=== PATIENT | female | born 1945 | race Caucasian/White ===

== ENCOUNTER 2020-10-20 10:37 | Outpatient (CLI) | payer MEDICARE, SELFPAY ==
--- NOTE | 2020-10-20 11:00 | USCV_ITS ---
Natalie Marks Age: 75 Gender: F : 1945 Exam Date: 10/20/2020 11:26 Ordering Phys: Mariel Hdz MD ([email or web address]) Technologist: David Vasquez [place] [facility] [facility] [place]: CAROTID STENOSIS Risk Factors: Previous Vascular Surgery: Right Brachial BP: / Left Brachial BP: / Right Left Velocity (cm/s) Spectral Plaque Velocity (cm/s) Spectral Plaque Syst/Diast Broadening Syst/Diast Broadening 65.10/ 19.80 Prox CCA 194.30/ 9.00 55.90/ 22.50 Mid CCA 372.20/ 26.60 51.30/ 24.90 Distal CCA 192.50/ 25.20 137.80/59.50 Prox ICA 164.90/ 21.00 89.30/ 37.50 Mid ICA 146.70/ 29.30 59.50/ 24.30 Distal ICA 103.00/ 21.70 42.70 ECA 104.20 2.46 ICA/CCA 0.44 Antegrade Vertebral Antegrade 101.4/ 18.70 cm/s 122.6/ 34.20 cm/s 0 0 Bi Subclavian Bi 89.30 135.2 0 CONCLUSIONS Right ICA stenosis 50-69%. Moderate atheromatous plaque right carotid bulb/ICA. Left ICA stenosis 50-69%. Moderate atheromatous plaque left carotid bulb/ICA. Significant elevated velocities left MID CCA at 372cm/s suggesting greater than 70% stenosis, with intimal thickening and heterogenous plaque. This could be further evaluated with CTA. This is new from 2017 Normal antegrade Doppler flow noted in the left vertebral artery. Normal antegrade Doppler flow noted in the right vertebral artery. Sigifredo Yuen MD (Electronically Signed) Final Date: 20 October 2020 17:52 Amended: 21 October 2020 17:15 C
== END 2020-10-20 10:38 | disposition home or self-care (01) ==
PROVIDERS: PCP Nurse Practitioner Family; Visit Provider Internal Medicine Cardiovascular Disease
DX: I65.23 Occlusion and stenosis of bilateral carotid arteries (principal)
CPT/HCPCS: 93880

== ENCOUNTER → 2020-12-09 14:10 | Outpatient (BNVA) | payer MEDICARE, SELFPAY | PROVIDERS: PCP Nurse Practitioner Family; Visit Provider Nurse Practitioner Family | DX: Z20.822 Contact with and (suspected) exposure to COVID-19 (principal) | CPT/HCPCS: 87426 ==

== ENCOUNTER 2020-12-11 09:56 | Outpatient (CLI) | payer MEDICARE, SELFPAY ==
[2020-12-11 10:30] LABS: Blood Urea Nitrogen 16 mg/dL (8-23)
--- NOTE | 2020-12-11 10:30 | CT_ITS ---
WS: [id number] CT ANGIOGRAM CAROTID ARTERIES HISTORY: I65.23 - Occlusion and stenosis of bilateral carotid arteries.... TECHNIQUE: CT angiogram is performed of the carotid arteries. During arterial injection imaging is ob tained from the skull base to the aortic arch in 1.25 mm imaging. Coronal and sagittal reformats are submitted, MIP imaging also reviewed. Additional multiplanar reformats of the carotid arteries are garzon bmitted. NASCET criteria utilized. All CT scans at [facility] use at least one of these d ose optimization techniques: automated exposure control; mA and/or kV adjustment per patient size (in cludes targeted exams where dose is matched to clinical indication); or iterative reconstruction. CONTRAST: Omnipaque 350; 95 mL IV. DLP: 1081.16 mGycm COMPARISON: 02/01/2019 Right carotid: Common carotid artery: Normally arises from the innominate. Mild scattered plaque. Internal carotid artery: Scattered plaque. Ulcerated plaque measuring 3 mm at the bifurcation extends posteriorly from the proximal ICA. No interval change. Proximal RIGHT ICA stenosis calculated at 43% . External carotid artery: Patent. Left carotid: Common carotid artery: Plaque at the origin from the aorta. No high-grade stenosis. Ulcerated plaque measuring 5 mm is again noted in the mid LEFT common carotid artery which has been previously describ ed. Stenosis in the proximal common carotid artery 50% near the ulcerated plaque. Internal carotid artery: Scattered plaque at the bifurcation. 49% stenosis calculated. External carotid artery: Patent. Right vertebral artery: Scattered plaque throughout with no stenosis or occlusion. Left vertebral artery: Dominant and tortuous with calcified plaque scattered throughout. No high-grad e stenosis. Subclavian arteries: Mild plaque and tortuosity with no stenosis identified. The origin of the LEFT s ubclavian artery is obscured by contrast bolus. Upper thorax: Normal. Thyroid gland: Small caliber. Poorly visualized. Osseous structures: Mild degenerative changes at C5-6 and C6-7 the spine. Skull base: No skull base abnormality identified. There is moderate calcified plaque through the visualized intracranial carotid arteries and cavernous sinuses. Stenosis 50-60% on the LEFT. Similar to the prior study. CT/CT angio neck 27668 IMPRESSION: 1. No significant progression of carotid artery stenosis since 02/01/2019. 2. Proximal RIGHT ICA stenosis 43%. 3. Proximal LEFT ICA stenosis 49%. 4. Proximal LEFT common carotid artery stenosis near 50% with associated ulcer ated plaque. The ulcerated plaque in the common carotid artery has progressed i n size. There is an additional smaller ulcerated plaque at the RIGHT ICA bifurc ation. 5. 50% stenosis LEFT carotid artery the cavernous sinus. No change.
== END 2020-12-11 09:57 | disposition home or self-care (01) ==
PROVIDERS: PCP Nurse Practitioner Family; Visit Provider Internal Medicine Cardiovascular Disease
DX: I65.23 Occlusion and stenosis of bilateral carotid arteries (principal)
CPT/HCPCS: 70498; 82565; 84520; Q9967

== ENCOUNTER 2021-07-30 14:54 | Outpatient (CLI) | payer MEDICARE, MEDICAID, SELFPAY ==
[2021-07-30 16:11] LABS: Anion Gap 20.4 (5-19); Blood Urea Nitrogen 24 mg/dL (8-23); Calcium 8.5 mg/dL (8.5-10.5); Carbon Dioxide 22 mmol/L (22-29); Chloride 101 mmol/L (98-107); Glucose 203 mg/dL (65-115); Osmolality Calculated 298 mOsm/kg (285-295); Potassium 4.4 mmol/L (3.5-5.1); Sodium 139 mmol/L (136-145)
== END 2021-07-30 14:55 | disposition home or self-care (01) ==
PROVIDERS: PCP Nurse Practitioner Family; Visit Provider Family Medicine
DX: E61.2 Magnesium deficiency (principal)
CPT/HCPCS: 80048

== ENCOUNTER 2021-07-31 09:52 | Outpatient (CLI) | payer MEDICARE, MEDICAID, SELFPAY ==
[2021-07-31 11:04] LABS: Magnesium 0.9 mg/dL (1.7-2.3)
== END 2021-07-31 09:53 | disposition home or self-care (01) ==
PROVIDERS: PCP Nurse Practitioner Family; Visit Provider Family Medicine
DX: E61.2 Magnesium deficiency (principal)
CPT/HCPCS: 83735

== ENCOUNTER 2024-03-14 14:59 | Outpatient (CLI) | payer MEDICARE, MEDICAID, SELFPAY ==
--- NOTE | 2024-03-14 15:08 | USCV_ITS ---
Natalie Marks Age: 78 Gender: F : 1945 Exam Date: 03/14/2024 15:25 Ordering Phys: Regan Lu MD Technologist: BRIANNA Exam Location: [facility] [place] Indication: Stenosis. Vision issues. bleeding post eye Risk Factors: Previous Vascular Surgery: Right Brachial BP: / Left Brachial BP: / Right Left Velocity (cm/s) Spectral Plaque Velocity (cm/s) Spectral Plaque Syst/Diast Broadening Syst/Diast Broadening 32.20/ 26.80 Prox CCA 145.60/ 20.10 33.70/ 23.80 Mid CCA 188.40/ 22.00 34.70/ 22.00 Distal CCA 294.10/ 25.30 29.20/ 15.70 Prox ICA 164.80/ 23.70 48.70/ 23.20 Mid ICA 130.30/ 24.10 27.50/ 15.60 Distal ICA 96.30 / 20.00 22.20 ECA 155.10 1.40 ICA/CCA 0.60 Retrograde Vertebral Antegrade 42.70/ 7.20 cm/s 89.00/ 26.00 cm/s Bi Subclavian Bi 21.40 142.5 0 FINDINGS Comparison:. 10/20/20, CTA 12/11/20 Progression of abnormal waveforms and extensive plaque bilaterally and diffusely. Parvus tardus wavefrom right carotid artery. Marked stenosis left CCA. Retrograde right vertebral artery. CONCLUSIONS Significant progression of stenosis, plaque and abnormal waveforms in each carotid artery. New since 12/11/20 Proximal right high grade stenosis likely at the arch or proximal right CCA. Retrograde vertebral artery also suggesting high grade stenosis or occlusion centrally. Left ICA stenosis 50-69%. Recommend CTA carotid arteries. Dr. Dee Matias DO (Electronically Signed) Final Date: 15 March 2024 08:19 S
== END 2024-03-14 15:00 | disposition home or self-care (01) ==
LOC: RAD 14:59
PROVIDERS: PCP Nurse Practitioner Family; Visit Provider Student in an Organized Health Care Education/Training Program
DX: I65.23 Occlusion and stenosis of bilateral carotid arteries (principal); H35.053 Retinal neovascularization, unspecified, bilateral
CPT/HCPCS: 93880

== ENCOUNTER 2024-04-17 08:48 | Outpatient (CLI) | payer MEDICARE, MEDICAID, SELFPAY ==
--- NOTE | 2024-04-17 08:49 | CT_ITS ---
WS: [id number] CTA HEAD AND NECK TECHNIQUE: Contrast enhanced CTA of the head and neck with coronal and sagittal reformatted images an d maximum intensity projection (MIP) images. NASCET criteria utilized. CLINICAL INFORMATION: OCCLUSION STENOSIS OF BILATERAL CAROTID ARTERIES COMPARISON: CTA 12/11/2020 DLP: 1187.[address] scans at [facility] use at least one of these dose optimization techniques: automated e xposure control; mA and/or kV adjustment per patient size (includes targeted exams where dose is matc hed to clinical indication); or iterative reconstruction. FINDINGS: Moderate to advanced small vessel changes. Moderate parenchymal volume loss. Mastoid air ce lls are well aerated. Paranasal sinuses are well aerated. LEFT sphenoid sinusitis. RIGHT: RIGHT common carotid artery is patent.. Approximately 50% stenosis RIGHT common carotid artery origin similar to previous. Calcified atheromatous plaque RIGHT carotid bulb extending into the ICA. Less than 50% RIGHT ICA stenosis. LEFT: Severe stenosis LEFT common carotid artery origin appears progressed. Less than 50% LEFT ICA st enosis. LEFT ICA is patent to the skull base. INTRACRANIAL CTA: Both ICAs are patent at the skull base. Cavernous carotid calcification. 3 mm anterior communicating artery aneurysm. Normal vascularity to the KORY and MCA territories bilaterally. LEFT dominant vertebral artery. Smaller patent RIGHT vertebral artery. Basilar artery is patent. Norm al vascularity to the DICE TABLE PERSON territory bilaterally. Densely calcified aortic arch with atheromatous disease. CT/CT angio headneck* [id number] IMPRESSION: 1. Less than 50% ICA stenosis bilaterally unchanged. Carotid bulb calcificatio n. 2. Approximately 50% stenosis of the RIGHT common carotid artery origin appear s similar to previous. 3. Severe stenosis innominate origin with dense calcification appears progress ed. 4. Moderate stenosis LEFT subclavian artery origin. 5. Severe stenosis LEFT common carotid artery origin appears progressed. 6. 3 mm anterior communicating artery aneurysm. This appears new since 2017.
[2024-04-17 09:24] LABS: Blood Urea Nitrogen 24 mg/dL (8-23)
[2024-04-17] MEDS: iohexol 350 mg/mL 500 mL Btl (per mL) IV (09:30)
== END 2024-04-17 08:49 | disposition home or self-care (01) ==
LOC: RAD 08:48
PROVIDERS: Radiology Diagnostic Radiology; PCP Nurse Practitioner Family; Visit Provider Nurse Practitioner Family
DX: I65.23 Occlusion and stenosis of bilateral carotid arteries (principal); I60.2 Nontraumatic subarachnoid hemorrhage from anterior communicating artery; I77.1 Stricture of artery; I70.0 Atherosclerosis of aorta; G31.89 Other specified degenerative diseases of nervous system; J01.30 Acute sphenoidal sinusitis, unspecified
CPT/HCPCS: 70496; 70498; 82565; 84520

== ENCOUNTER 2024-08-10 14:00 | Inpatient (IN) | payer MEDICARE, MEDICAID, SELFPAY ==
--- NOTE | 2024-08-10 14:02 | ECG_ITS ---
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 Measurements Intervals [place] Rate: 86 P: 0 ME: 0 QRS: 70 QRSD: 145 T: 138 QT: 364 QTc: 438 Interpretive Statements UNCERTAIN REGULAR RHYTHM INDETERMINATE AXIS RIGHT BUNDLE BRANCH BLOCK [120+ ms QRS DURATION, UPRIGHT V1, 40+ ms S IN I/aVL/V4/V5/V6] Compared to ECG 12/15/2018 12:17:12 Indeterminate axis now present Sinus rhythm no longer present Electronically Signed On 08-10-2024 21:34:36 CHARTER BOAT CAPTAIN by Jacques Valdez M.D. [email or web address]
--- NOTE | 2024-08-10 14:02 | XRR_ITS ---
PROCEDURE INFORMATION: Exam: XR Chest Exam date and time: 08/10/2024 4:11 PM Age: 79 years old Clinical indication: Shortness of breath TECHNIQUE: Imaging protocol: Radiologic exam of the chest. Views: 1 view. COMPARISON: CR XR chest 1V [id number] 12/15/2018 1:00 PM FINDINGS: Lungs: No consolidation. Pleural spaces: Small volume pleural effusions. No pneumothorax. Heart/Mediastinum: Cardiomegaly. Bones/joints: Unremarkable. XR/XR chest 1V portable [id number] IMPRESSION: Cardiomegaly with small volume pleural effusions.
[2024-08-10 14:06] VITALS: BP 97/64; PULSE 85; RESP 16; TEMP 36.7; O2SAT 94; BMI 23.3
[2024-08-10 14:53] LABS: Basophils % 0.4 %; Eosinophils % 0.4 %; Hematocrit 41.7 % (36-47); Lymphocytes # 0.9 10^3/uL (0.8-4.8); Lymphocytes % 13.7 %; Mean Corpuscular HGB Conc 32.4 g/dL (30-55); Mean Corpuscular Hemoglobin 29.2 pg (27-33); Mean Corpuscular Volume 90.3 fl (85-98); Mean Platelet Volume 11.4 fL (7.4-10.4); Monocytes # 0.7 10^3/uL (0.2-0.9); Monocytes % 10.1 %; Neutrophils # 5.04 10^3/uL (1.8-7.7); Neutrophils % 75.1 %; Nucleated Red Blood Cells % 0 %; Platelet Count 160 10^3/cmm (157-399); Red Blood Count 4.62 10^6/uL (3.85-5.65); Red Cell Distribution Width 17.9 % (12.1-15.1); White Blood Count 6.72 10^3/uL (3.29-11.43)
[2024-08-10 15:13] LABS: Troponin(5th) Baseline 55 ng/L (0-10)
[2024-08-10 15:15] LABS: Lactic Sepsis W/Reflex 1.9 mmol/L (0.5-2.2)
[2024-08-10 15:22] LABS: Alanine Aminotransferase 18 U/L (0-33); Albumin Level 3.1 g/dL (3.5-5.2); Alkaline Phosphatase 124 U/L (35-105); Anion Gap 15.6 (5-19); Aspartate Amino Transferase 19 U/L (0-32); Blood Urea Nitrogen 26 mg/dL (8-23); Calcium 8.2 mg/dL (8.5-10.5); Carbon Dioxide 30 mmol/L (22-29); Chloride 102 mmol/L (98-107); Creatinine Clr Calc Pharmacy 50.0591; Globulin 2.3 g/dL (1.3-4.6); Glucose 184 mg/dL (65-115); NT Pro B Type Natriuretic Pept 12212 pg/mL (0-450); Osmolality Calculated 308 mOsm/kg (285-295); Potassium 3.6 mmol/L (3.5-5.1); Sodium 144 mmol/L (136-145); Total Bilirubin 0.5 mg/dL (0.15-1.2); Total Protein 5.4 g/dL (6.6-8.7)
--- NOTE | 2024-08-10 17:15 | ECG_ITS ---
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 Measurements Intervals [place] Rate: 82 P: 56 FL: 133 QRS: -63 QRSD: 139 T: 184 QT: 428 QTc: 502 Interpretive Statements SINUS RHYTHM INDETERMINATE AXIS RIGHT BUNDLE BRANCH BLOCK [120+ ms QRS DURATION, UPRIGHT V1, 40+ ms S IN I/aVL/V4/V5/V6] MODERATE T-WAVE ABNORMALITY, CONSIDER LATERAL ISCHEMIA [-0.1+ mV T-WAVE IN I/aVL/V5/V6] Compared to ECG 08/10/2024 14:09:10 T-wave abnormality now present Possible ischemia now present Electronically Signed On 08-10-2024 21:54:19 REVERSE ENGINEER by Jacques Valdez M.D. [id number]
[2024-08-10 18:05] LABS: Covid PCR NEGATIVE (Negative); Influenza A NEGATIVE (Negative); Influenza B NEGATIVE (Negative); Respiratory Syncytial Virus Ce NEGATIVE (Negative)
[2024-08-10 18:31] LABS: Troponin 5 2HR 50.09 ng/L (0-10)
[2024-08-10 18:37] LABS: Troponin 5 2HR Delta -4.91 ABS# (0-10)
[2024-08-10 18:40] VITALS: BP 86/56; PULSE 108; O2SAT 85
[2024-08-10 18:43] VITALS: O2SAT 92
--- NOTE | 2024-08-10 19:09 | ED_ITS ---
HPI - SOB/Dyspnea 2 General: Chief Complaint: Shortness of Breath/Dyspnea Stated Complaint: SOB Time Seen by Provider: 08/10/24 18:54 Source: patient Mode of arrival: ambulatory Limitations: no limitations History of Present Illness: HPI Narrative: Patient is an 79-year-old female with past medical history of hypertension and diabetes who presents the emergency department complaining of shortness of breath for the past few weeks. Patient notes 10 pound weight gain specifically over the past week, as she has been retaining fluid to her legs. States that she has been short of breath and it is worsened with any movement. She does not require oxygen regularly, but has required the use of 3 L of oxygen here to maintain above 90% on room air. Also notes weakness and chest pains. She takes 40 mg of Lasix daily, no changes to this recently. No other new medications or changes in medications. She states that she has heart issues but has never been told that she has congestive heart failure. She denies any cough, fevers, or other symptoms at this time. MD elicited complaint: shortness of breath Pertinent past history: diabetes Onset (ago): week(s) Timing: constant and progressively worsening Severity: moderate Exacerbating factors: exertion Associated symptoms: Reports chest pain; Deny abdominal pain, fever(s), lightheadedness, nausea, palpitations or vomiting Treatment prior to arrival: oxygen Related Data Home Medications Medication Instructions Recorded Confirmed aspirin 81 mg tablet,delayed 81 mg PO DAILY 04/24/20 12/03/20 release (Adult Low Dose Aspirin) famotidine 20 mg tablet 20 mg PO DAILY 04/24/20 12/03/20 fenofibrate nanocrystallized 145 145 mg PO DAILY 04/24/20 12/03/20 mg tablet levothyroxine 88 mcg/mL oral 88 mcg PO DAILY 04/24/20 12/03/20 solution magnesium oxide 400 mg (241.3 mg 400 mg PO DAILY 04/24/20 12/03/20 magnesium) tablet (MagOx) metformin 1,000 mg tablet 1,000 mg PO BID 04/24/20 12/03/20 multivitamin 1 tab PO DAILY 04/24/20 12/03/20 Previous Rx's Medication Instructions Recorded amlodipine 10 mg tablet 10 mg PO DAILY #90 tabs 04/24/20 atorvastatin 40 mg tablet 40 mg PO DAILY #90 tabs 04/24/20 irbesartan 300 1 tab PO DAILY #90 tabs 04/24/20 mg-hydrochlorothiazide 12.5 mg tablet isosorbide mononitrate 120 mg 120 mg PO DAILY #90 tabs 04/24/20 tablet,extended release 24 hr hydralazine 25 mg tablet 25 mg PO TID #270 tabs 06/25/20 Allergies Allergy/AdvReac Type Severity Reaction Status Date / Time acetaminophen AdvReac Unknown Verified 08/10/24 14:14 [From Darvocet-N] propoxyphene AdvReac Unknown Verified 08/10/24 14:14 [From Darvocet-N] Review of Systems 2 General: Reports: 10 or more systems reviewed and unremarkable except in HPI and below Const: Reports: change in appetite (weight gain) and fatigue; Denies: fever(s) or chills Eyes: Denies: change in vision ENMT: Denies: throat pain, ear or mastoid pain or nasal discharge Card: Reports: chest pain and edema; Denies: palpitations, swelling of feet/ankles or lightheadedness Resp: Reports: dyspnea; Denies: productive cough or wheezing GI: Denies: abdominal pain, nausea, vomiting, diarrhea or constipation : Denies: flank pain, difficulty voiding, dysuria or urinary frequency Musc: Denies: neck pain, back pain or joint pain Skin/Breast: Denies: rash Neuro: Denies: headache(s), numbness in extremities or weakness in extremities PFSH ED 2 PFSH: Medical History HTN (hypertension) Carotid stenosis Tricuspid regurgitation Diabetes Hypothyroidism Polio Surgical History Hx of cataract surgery Hx of hernia repair Hx of section Family History Other Diabetes Social History Alcohol intake: current Alcohol intake frequency: other Substance/Drug Use: never Physical Exam 2 Const: COMMON NORMALS: no acute distress, patient oriented x3 and no limitations GENERAL APPEARANCE: cooperative, comfortable and well developed ORIENTATION/CONSCIOUSNESS: Yes awake, Yes oriented to person, Yes oriented to place and Yes oriented to time HENMT: COMMON NORMALS: normocephalic, atraumatic and hearing grossly normal bilaterally HEAD & SCALP: normocephalic and atraumatic Eye: COMMON NORMALS: Equal, round and reactive pupils present, EOMs intact bilaterally and conjunctivae normal CONJUNCTIVA: Yes conjunctivae normal P UPIL: Yes Equal, round and reactive pupils present Neck/C-Spine: COMMON NORMALS: full ROM, supple and no JVD Resp: COMMON NORMALS: normal respiratory effort, No retractions, No use of accessory muscles and clear to auscultation bilaterally AUSCULTATION: clear to auscultation bilaterally Cardio: COMMON NORMALS: no JVD, regular rate, regular rhythm, No clicks present (Cardio) and No rub (Cardio) RATE: regular rate RHYTHM: regular rhythm HEART SOUNDS: Murmur heart sound present systolic GI: COMMON NORMALS: Normal to inspection, nondistended, normoactive bowel sounds present, Soft to palpation and non-tender AUSCULTATION: Yes normoactive bowel sounds PALPATION: Yes Soft to palpation RECTAL EXAM: d eferred Extremity: COMMON NORMALS: full ROM and capillary refill normal NARRATIVE EXTREMITY EXAM: 2+ pitting edema to the shins bilaterall y Neuro: COMMON NORMALS: patient oriented x3, moves all extremities, no focal motor deficits and no sensory deficits noted SENSORIUM/ORIENTATION: Yes oriented to person, Yes oriented to place and Yes oriented to time Skin: COMMON NORMALS: no rashes or lesions noted GENERAL SKIN EXAM: no rashes or lesions noted Course 2 Vital Signs: Vital signs: Vital Signs Temperature 98.0 F 08/10/24 14:06 Pulse Rate 73 08/10/24 21:29 Respiratory Rate 20 H 08/10/24 21:29 Blood Pressure 87/63 08/10/24 21:29 Pulse Oximetry 94 08/10/24 21:29 Oxygen Delivery Me thod Nasal Cannula 08/10/24 22:14 Oxygen Flow Rate 3 08/10/24 18:43 MDM - SOB/Dyspnea Medical Decision Making Patient presented with 10 pound weight gain reported over the past greater than 1 week. Unsure if diagnosed with CHF in the past though states that she is on furosemide 40 mg once daily. States it has been difficult to walk due to the pain and swelling in her legs, also had history of polio causing deficits with her lower extremities. Noted shortness of breath and is now requiring 3 L of oxygen to maintain over 90% SpO2. Murmur appreciated on auscultation, lungs were clear. Did seem fluid overloaded with peripheral edema pitting up to the shins. Her BNP was elevated, no prior lab for trend comparison. Spoke with hospitalist, Dr. Pollock, who agrees to accept the patient for diuresis here in the hospital. Discussed this with patient, she is comfortable with admission and all other questions and concerns addressed at this time. Dr. Smith putting in admit orders at this time. Lab Data 08/10/24 14:44 08/10/24 14:44 Labs/Radiology: Radiology Impressions Chest X-Ray 08/10/24 14:02 IMPRESSION: Cardiomegaly with small volume pleural effusions. Laboratory Results WBC 6.72 10^3/uL (3.29-11.43) 08/10/24 14:44 RBC 4.62 10^6/uL (3.85-5.65) 08/10/24 14:44 Hgb 13.50 g/dL (11.27-16.99) 08/10/24 14:44 Hct 41.7 % (36-47) 08/10/24 14:44 MCV 90.3 fl (85-98) 08/10/24 14:44 MCH 29.2 pg (27-33) 08/10/24 14:44 MCHC 32.4 g/dL (30-55) 08/10/24 14:44 RDW 17.9 % (12.1-15.1) H 08/10/24 14:44 Plt Count 160 10^3/cmm (157-399) 08/10/24 14:44 MPV 11.4 fL (7.4-10.4) H 08/10/24 14:44 Neut % (Auto) 75.1 % 08/10/24 14:44 Lymph % (Auto) 13.7 % 08/10/24 14:44 [place] % (Auto) 10.1 % 08/10/24 14:44 Eos % (Auto) 0.4 % 08/10/24 14:44 Baso % (Auto) 0.4 % 08/10/24 14:44 Neut # (Auto) 5.04 10^3/uL (1.8-7.7) 08/10/24 14:44 Lymph # (Auto) 0.9 10^3/uL (0.8-4.8) 08/10/24 14:44 [place] # (Auto) 0.7 10^3/uL (0.2-0.9) 08/10/24 14:44 Eos # (Auto) 0.0 10^3/uL (0.0-0.8) 08/10/24 14:44 Baso # (Auto) 0.0 10^3/uL (0.0-0.1) 08/10/24 14:44 Nucleated RBC % (auto) 0 % 08/10/24 14:44 Nucleated RBCs # 0.0 /100WBC 08/10/24 14:44 Sodium 144 mmol/L (136-145) 08/10/24 14:44 Potassium 3.6 mmol/L (3.5-5.1) 08/10/24 14:44 Chloride 102 mmol/L (98-107) 08/10/24 14:44 Carbon Dioxide 30 mmol/L (22-29) H 08/10/24 14:44 Anion Gap 15.6 (5-19) 08/10/24 14:44 BUN 26 mg/dL (8-23) H 08/10/24 14:44 Creatinine 0.7 mg/dL (0.5-0.9) 08/10/24 14:44 GFR Calculation Not Reportable 08/10/24 14:44 Glucose 184 mg/dL (65-115) H 08/10/24 14:44 Calculated Osmolality 308 mOsm/kg (285-295) H 08/10/24 14:44 Lactic Acid 1.9 mmol/L (0.5-2.2) 08/10/24 14:44 Calcium 8.2 mg/dL (8.5-10.5) L 08/10/24 14:44 Total Bilirubin 0.5 mg/dL (0.15-1.2) 08/10/24 14:44 AST 19 U/L (0-32) 08/10/24 14:44 ALT 18 U/L (0-33) 08/10/24 14:44 Alkaline Phosphatase 124 U/L (35-105) H 08/10/24 14:44 Troponin T Baseline 55 ng/L (0-10) H 08/10/24 14:44 Troponin T 120 Minute 50.09 ng/L (0-10) H 08/10/24 18:03 Delta Troponin T -4.91 ABS# (0-10) L 08/10/24 18:03 NT-Pro-B Natriuret Pep 86242 pg/mL (0-450) H 08/10/24 14:44 Total Protein 5.4 g/dL (6.6-8.7) L 08/10/24 14:44 Albumin 3.1 g/dL (3.5-5.2) L 08/10/24 14:44 Globulin 2.3 g/dL (1.3-4.6) 08/10/24 14:44 Coronavirus (PCR) Negative (Negative) 08/10/24 17:17 Influenza A (PCR) Negative (Negative) 08/10/24 17:17 Influenza Type B (PCR) Negative (Negative) 08/10/24 17:17 RSV (PCR) Negative (Negative) 08/10/24 17:17 All radiology interpretation(s) finalized by discharge Discharge Plan Discharge Patient Disposition: Admitted As Inpatient Admit Provider: Jason Pollock Clinical Impression: CHF exacerbation Condition: Stable Coding Level of Care Code ED Director Of Public Works for Lopez Gonzalez
[2024-08-10 19:23] VITALS: BP 88/53; PULSE 79; RESP 20; O2SAT 94
--- NOTE | 2024-08-10 19:33 | P.HP_ITS ---
Providers/Chief Complaint 2 Primary Care Provider: Ximena Carpenter Chief Complaint: SOB History of Present Illness Natalie Marks is a 79 year old female cardiac murmur, hypertension history of polio as a child affecting her left leg, palpitations dyslipidemia and diabetes mellitus. She was on metoprolol succinate 200 mg twice a day for several years. ?On event monitor she was noted to have sinus bradycardia with heart rate in 30s to 50s with junctional escape complexes and pause of approximately 5 seconds. Metoprolol was stopped resident of [facility] presented with orthopnea PND shortness of breath and weight gain. Patient is stating that in last 1 month she has gained 15 pounds, she has polio uses a walker but not been able to walk secondary to extreme fluid overload in her lower extremities. No recent fever, diarrhea chest pain or vomiting. In the hospital she is requiring 3 L of oxygen to keep her O2 saturation above 92%. Patient is stating that lately her blood pressure has been in 80s. Review of Systems 2 Const: Denies: fever(s) Eyes: Denies: change in vision ENMT: Denies: throat pain Card: Reports: swelling of feet/ankles Resp: Reports: dyspnea Medications/Allergies Home Medications Medication Instructions Recorded Confirmed Last Taken Type amlodipine 10 mg tablet 10 mg PO DAILY #90 tabs 04/24/20 12/03/20 Unknown Rx aspirin 81 mg tablet,delayed 81 mg PO DAILY 04/24/20 12/03/20 Unknown History release (Adult Low Dose Aspirin) atorvastatin 40 mg tablet 40 mg PO DAILY #90 tabs 04/24/20 12/03/20 Unknown Rx famotidine 20 mg tablet 20 mg PO DAILY 04/24/20 12/03/20 Unknown History fenofibrate nanocrystallized 145 145 mg PO DAILY 04/24/20 12/03/20 Unknown History mg tablet irbesartan 300 1 tab PO DAILY #90 tabs 04/24/20 12/03/20 Unknown Rx mg-hydrochlorothiazide 12.5 mg tablet isosorbide mononitrate 120 mg 120 mg PO DAILY #90 tabs 04/24/20 12/03/20 Unknown Rx tablet,extended release 24 hr levothyroxine 88 mcg/mL oral 88 mcg PO DAILY 04/24/20 12/03/20 Unknown History solution magnesium oxide 400 mg (241.3 mg 400 mg PO DAILY 04/24/20 12/03/20 Unknown History magnesium) tablet (MagOx) metformin 1,000 mg tablet 1,000 mg PO BID 04/24/20 12/03/20 Unknown History multivitamin 1 tab PO DAILY 04/24/20 12/03/20 Unknown History hydralazine 25 mg tablet 25 mg PO TID #270 tabs 06/25/20 12/03/20 Unknown Rx Allergies Allergy/AdvReac Type Severity Reaction Status Date / Time acetaminophen AdvReac Unknown Verified 08/10/24 14:14 [From Darvocet-N] propoxyphene AdvReac Unknown Verified 08/10/24 14:14 [From Darvocet-N] PFSH Acute 2 PFSH: Medical History HTN (hypertension) Carotid stenosis Tricuspid regurgitation Diabetes Hypothyroidism Polio Surgical History Hx of cataract surgery Hx of hernia repair Hx of section Family History Other Diabetes Social History Alcohol intake: current Alcohol intake frequency: other Substance/Drug Use: never Vitals/I&O/Wt Last Vital Signs Temp 98.0 F 08/10/24 14:06 Pulse 79 08/10/24 19:23 Resp 20 H 08/10/24 19:23 BP 88/53 08/10/24 19:23 Pulse Ox 94 08/10/24 19:23 O2 Del Method Nasal Cannula 08/10/24 18:43 O2 Flow Rate 3 08/10/24 18:43 Weight last 48 hrs Weight 61.689 kg Physical Exam 2 Narrative: Awake and alert Active signs of fluid overload Lower extremity edema GCS 15 Currently on 3 L Bilateral breath sounds with crackles Abdomen soft No active chest pain S1, S2 Low blood pressure Data 08/10/24 14:44 08/10/24 14:44 Micro: Microbiology 08/10/24 14:42 Blood Culture - Preliminary Blood SPECIMEN COLLECTED 08/10/24 14:44 Blood Culture - Preliminary Blood SPECIMEN COLLECTED A&P Assessment and plan (1) CHF exacerbation: Qualifiers: Heart failure type: unspecified Qualified Code(s): I50.9 - Heart failure, unspecified (2) Tricuspid regurgitation: Qualifiers: Cardiac valve disease etiology: nonrheumatic Qualified Code(s): 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 (3) Diabetes: (4) Hypoxia: Plan Acute hypoxia related to CHF Currently on 3 L saturating well Anticipating from diuresis Acute preserved ejection fraction heart failure exacerbation Preserved action fraction as per previous echo Continue IV diuretics I will start her on IV diuretic regimen in the morning currently her blood pressure is in 80s Hypotension related to antihypertensive regimen Hold antiplatelet regimen for now Patient takes for antihypertensive regimen Polypharmacy related hypotension DNR/DNI Cardiac consistent carb diet Insulin sliding scale Patient uses a walker Resident of [facility] Attestations 2 Medical Necessity Statement*: Anticipating discharge within 48 hours Diagnoses CHF exacerbation I50.9 Heart failure type: unspecified Nonrheumatic tricuspid valve regurgitation I36.1 Cardiac valve disease etiology: nonrheumatic Diabetes E11.9 Hypoxia R09.02
[2024-08-10] MEDS: enoxaparin 40 mg/0.4 mL Syringe SUBCUT (20:58)
[2024-08-10 21:22] LABS: Troponin 5 6HR 49.64 ng/L (0-10)
[2024-08-10 21:29] VITALS: BP 87/63; PULSE 73; RESP 20; O2SAT 94
[2024-08-10 21:44] LABS: Troponin 5 6HR Delta -5.36 ng/L (0-12)
[2024-08-10 22:29] LABS: Glucose Point of Care 218 mg/dL (70-110)
[2024-08-10] MEDS: insulin lispro 100 unit/1 mL SUBCUT (22:29)
[2024-08-11] VITALS (48 sets, daily range): BP systolic 71–131; BP diastolic 32–71; PULSE 67–86; RESP 16–33; TEMP 36–36.4; O2SAT 89–94
[2024-08-11] MEDS: norepinephrine 4 MG/250 ML BAG 7.5 MG IV (00:55)
[2024-08-11 04:38] LABS: Basophils % 0.4 %; Eosinophils % 0.4 %; Hematocrit 42.2 % (36-47); Lymphocytes # 1.5 10^3/uL (0.8-4.8); Lymphocytes % 16.1 %; Mean Corpuscular Volume 90.8 fl (85-98); Monocytes % 11.1 %; Neutrophils # 6.56 10^3/uL (1.8-7.7); Neutrophils % 71.6 %; Nucleated Red Blood Cells % 0 %; Platelet Count 175 10^3/cmm (157-399); Red Blood Count 4.65 10^6/uL (3.85-5.65); Red Cell Distribution Width 17.9 % (12.1-15.1); White Blood Count 9.18 10^3/uL (3.29-11.43)
[2024-08-11 04:54] LABS: Anion Gap 14.2 (5-19); Blood Urea Nitrogen 25 mg/dL (8-23); C Reactive Protein 9.5 mg/L (0.0-4.9); Calcium 8.1 mg/dL (8.5-10.5); Carbon Dioxide 30 mmol/L (22-29); Chloride 102 mmol/L (98-107); Creatinine Clr Calc Pharmacy 50.6909; Glucose 56 mg/dL (65-115); Osmolality Calculated 298 mOsm/kg (285-295); Potassium 3.2 mmol/L (3.5-5.1); Sodium 143 mmol/L (136-145)
[2024-08-11 05:05] LABS: Magnesium 0.8 mg/dL (1.7-2.3)
[2024-08-11 07:40] LABS: Glucose Point of Care 70 mg/dL (70-110)
[2024-08-11] MEDS: FUROsemide 10 mg/mL SDV 10mL 20 MG IVP (08:04)
[2024-08-11] MEDS: magnesium oxide 400 mg tablet PO (08:04)
[2024-08-11] MEDS: magnesium sulfate premix 2 GM/50 ML PIGGYBACK IV (08:04)
[2024-08-11] MEDS: levothyroxine 88 mcg Tablet PO (08:04)
[2024-08-11] MEDS: atorvastatin 40 mg Tablet PO (08:04)
[2024-08-11] MEDS: aspirin 81 mg EC Tablet PO (08:04)
[2024-08-11] MEDS: potassium chloride ER 20 mEq Tablet 40 MEQ PO ×2 (08:05→16:43)
[2024-08-11] MEDS: sennosides-docusate Tablet 1 TAB PO (08:05)
[2024-08-11 08:58] LABS: Troponin T (5th) Once 52 ng/L (0-10)
[2024-08-11 09:24] LABS: Procalcitonin 0.06 ng/mL (0-0.5)
[2024-08-11] MEDS: metOLazone 5 MG Tablet PO (09:33)
[2024-08-11 11:35] LABS: Glucose Point of Care 123 mg/dL (70-110)
[2024-08-11 12:35] LABS: Anion Gap 13.5 (5-19); Blood Urea Nitrogen 25 mg/dL (8-23); Calcium 8.1 mg/dL (8.5-10.5); Carbon Dioxide 32 mmol/L (22-29); Chloride 99 mmol/L (98-107); Creatinine Clr Calc Pharmacy 51.4807; Glucose 132 mg/dL (65-115); Magnesium 1.2 mg/dL (1.7-2.3); Osmolality Calculated 298 mOsm/kg (285-295); Phosphorus 3.6 mg/dL (2.5-4.5); Potassium 3.5 mmol/L (3.5-5.1); Sodium 141 mmol/L (136-145)
--- NOTE | 2024-08-11 15:51 | P.PN_ITS ---
Subjective 2 Subjective: Patient was seen this morning, she is alert oriented x 3, following all commands, she is on 2 Levophed, denies any fevers, no chills, no cough does report lower extreme edema increased shortness of breath, weight gain, Vitals/I&O/Wt Last Vital Signs Temp 96.8 F L 08/11/24 05:29 Pulse 74 08/11/24 15:15 Resp 24 H 08/11/24 15:15 BP 98/69 08/11/24 15:15 Pulse Ox 92 08/11/24 15:15 O2 Del Method Nasal Cannula 08/11/24 15:15 O2 Flow Rate 3 08/11/24 15:15 08/11/24 08/11/24 08/11/24 06:59 14:59 22:59 Intake Total 530 / 530 Output Total 550 / 550 450 / 450 Balance -550 / -550 80 / 80 Weight last 48 hrs Weight 65.771 kg Weight 63.503 kg Weight 61.689 kg Physical Exam 2 Const: COMMON NORMALS: no acute distress and patient oriented x3 Resp: COMMON NORMALS: normal respiratory effort, No retractions and No use of accessory muscles Cardio: COMMON NORMALS: regular rate, regular rhythm, S1 normal heart sound present and S2 normal heart sound present RATE: regular rate RHYTHM: r egular rhythm HEART SOUNDS: S1 normal heart sound present and S2 normal heart sound present GI: COMMON NORMALS: Normal to inspection, nondistended, normoactive bowel sounds present and non-tender Extremity: COMMON NORMALS: no pedal edema Neuro: COMMON NORMALS: patient oriented x3 Psych: COMMON NORMALS: mental status grossly normal Sepsis: Is patient septic: No Focused sepsis exam performed: Yes Focused sepsis exam: DP PT pulses palpable, capillary refill, less than 2 seconds, no mottling Date exam was performed: 08/11/24 Time exam was performed: 09:30 Data 08/11/24 04:21 08/11/24 11:40 Micro: Microbiology 08/10/24 14:42 Blood Culture - Preliminary Blood NEGATIVE TO DATE 08/10/24 14:44 Blood Culture - Preliminary Blood NEGATIVE TO DATE A&P Assessment and plan (1) CHF exacerbation: Qualifiers: Heart failure type: unspecified Qualified Code(s): I50.9 - Heart failure, unspecified (2) Tricuspid regurgitation: Qualifiers: Cardiac valve disease etiology: nonrheumatic Qualified Code(s): 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 (3) Diabetes: (4) Hypoxia: (5) Shock: (6) Hematuria: Plan Shock -Requiring Levophed at 2 -Likely cardiogenic -Could be from polypharmacy, multiple blood pressure medications -Lactic acid within normal limits, leukocytosis within normal limits, CRP and Pro-Josh within normal limits, viral respiratory panel within normal limits -Follow blood cultures -Follow UA -Maintain MAP around 65 Acute hypoxia related to systolic and diastolic CHF Currently on 3 L saturating well Continue IV diuresis, 1 dose metolazone Continue Levophed maintain MAP around 65 Cardiac echo Type 2 diabetes mellitus, low-dose sliding scale Hematuria, renal ultrasound DNR/DNI Cardiac consistent carb diet Insulin sliding scale Patient uses a walker Resident of [facility] Attestations 2 Medical Necessity Statement*: Patient requires hospitalization for shock, acute systolic CHF exacerbation, hematuria Diagnoses CHF exacerbation I50.9 Heart failure type: unspecified Nonrheumatic tricuspid valve regurgitation I36.1 Cardiac valve disease etiology: nonrheumatic Diabetes E11.9 Hypoxia R09.02 Shock R57.9 Hematuria R31.9
[2024-08-11 16:21] LABS: Free T4 Free Thyroxine 1.06 ng/dL (0.82-1.77); T3 Free 1.1 PG/ML (2.0-4.4); Thyroid Stimulating Hormone 9.76 uIU/mL (0.27-4.20)
[2024-08-11] MEDS: magnesium sulfate premix 1 GM/100 ML PIGGYBACK IV (16:43)
[2024-08-11 16:57] LABS: Bilirubin Urine Negative (Negative); Blood Urine 3+ (Negative); Glucose Urine UA Negative (Normal); Ketones Urine Trace (Negative); Leukocyte Esterase Urine 1+ (Negative); Nitrate Urine Negative (Negative); Protein Urine 3+ (Negative); Specific Gravity, Urine 1.015 (1.005-1.030); Urine Appearance Cloudy (CLEAR); Urine Color Yellow (Yellow)
[2024-08-11 17:00] LABS: Add Urine Microscopic? YES; Bacteria Urine None Seen /hpf; RBC Urine >100 /hpf (0-2); Squamous Epithelial Cell Urine 0-5 /hpf (0-5); WBC Urine 21-50 /hpf (0-5)
[2024-08-11 17:01] LABS: Add Urine Culture? Yes; UA Slide Review UA Slide Review Perf
[2024-08-11 17:13] LABS: Glucose Point of Care 230 mg/dL (70-110)
--- NOTE | 2024-08-11 17:24 | XRR_ITS ---
PROCEDURE INFORMATION: Exam: XR Chest Exam date and time: 08/11/2024 5:58 PM Age: 79 years old Clinical indication: Device placement; Picc; Additional info: Post picc insertion, carrie placing in icu 5. Should be ready at 1800 TECHNIQUE: Imaging protocol: Radiologic exam of the chest. Views: 1 view. COMPARISON: CR (CHEST, ) 08/10/2024 4:11 PM FINDINGS: Tubes, catheters and devices: Right upper extremity PICC line with tip in the superior vena cava. Lungs: Pulmonary vascular congestion. No alveolar consolidation. Pleural spaces: No pleural effusion. No pneumothorax. Heart/Mediastinum: Cardiomegaly. Bones/joints: Unremarkable. XR/XR chest 1V portable [id number] IMPRESSION: 1. Right upper extremity PICC line with tip in the superior vena cava. No complication evident. 2. Cardiomegaly with pulmonary vascular congestion.
[2024-08-11] MEDS: FUROsemide 10 mg/mL SDV 4mL 40 MG IVP (18:32)
[2024-08-11] MEDS: enoxaparin 40 mg/0.4 mL Syringe SUBCUT (18:32)
[2024-08-11] MEDS: insulin lispro 100 unit/1 mL SUBCUT ×2 (18:32→21:33)
[2024-08-11] MEDS: albumin 25 G/100 ML BAG 60 G IV (18:32)
--- NOTE | 2024-08-11 18:37 | PICC.NOTE ---
Double lumen PICC placed to right brachial vein. Referred to vascular access nurse for PICC placement due to use of IV vasopressors. Risks and benefits discussed and informed consent obtained from pt. Right arm assessed with right brachial vein measuring 3.2 mm, straight, and apparent best choice for placement. Using sterile technique and MST, right brachial vein accessed x 1 stick. Mid-arm circumference measured 10 cm from right AC 19 cm. Trimmed cath 40 cm with 3 cm external length noted. CXR shows tip to appear to be in the distal SVC. Awaiting radiologist to read. Line secured with stat-lock. Insertion site covered with Secureport IV and TSM. Report given to bedside nurse, RIRI Karimi.
--- NOTE | 2024-08-11 19:35 | USCV_ITS ---
Natalie Marks Age: 79 Gender: F : 1945 Exam Date: 08/11/2024 11:04 Ordering Phys: Jason Pollock MD Technologist: David Vasquez [place] [facility] [place]: chf BP: 99 / 56 HR: 73 Rhythm: Sinus Technical Quality: Adequate MEASUREMENTS (Male / Female) Normal Values 2D ECHO LV Diastolic Diameter PLAX 3.9 cm 4.2 - 5.9 / 3.9 - 5.3 cm IVS Diastolic Thickness 1.5 cm 0.6 - 1.0 / 0.6 - 0.9 cm IVS Systolic Thickness 2.0 cm LVPW Diastolic Thickness 2.1 cm 0.6 - 1.0 / 0.6 - 0.9 cm LVPW Systolic Thickness 2.5 cm LVOT Diameter 2.0 cm LV Ejection Fraction 2D Teich 86.3 % LV Ejection Fraction MOD 4C 73.4 % LV Ejection Fraction MOD 2C 69.3 % LV Ejection Fraction 2C AL 71.5 % LA Diameter 3.8 cm RA Systolic Volume 4C AL 36.8 ml RA Systolic Volume 4C MOD 36.3 ml LA Sys Volume AL 56.6 cm cubed LA Sys Volume Index AL 32.6 cm cubed/m squared Aorta at Sinotubular Diameter 1.7 cm IVC Diameter 2.2 cm M-MODE LA Ao Ratio MM 1.3 AV Cusp Separation MM 1.0 cm DOPPLER AV Peak Velocity 146.0 cm/s AV Area Cont Eq vti 1.6 cm squared AV Area Cont Eq pk 1.8 cm squared MV Peak Velocity 143.0 cm/s MV Area PHT 6.3 cm squared Mitral E to A Ratio 0.5 TV Peak Velocity 320.5 cm/s TR Peak Velocity 364.0 cm/s TR Peak Gradient 53.0 mmHg TR Mean Velocity 262.0 cm/s TR Mean Gradient 31.4 mmHg TR Velocity Time Integral 109.2 cm PV Peak Velocity 81.0 cm/s RV Ejection Time 0.3 s FINDINGS Left Ventricle Moderate to severe concentric left ventricular hypertrophy. LV ejection fraction 72%.no regional wall motion abnormalities. Grade I/IV diastolic dysfunction (abnormal relaxation filling pattern), normal to mildly elevated filling pressures. Right Ventricle Possibly normal RV size and ejection fraction. Right Atrium Moderately increased right atrial size. Left Atrium Moderately increased left atrial size. Mitral Valve Thickened mitral valve. Moderate mitral annular calcification. Aortic Valve Moderate aortic valve calcification. Aortic valve sclerosis. Tricuspid Valve Possibly severe tricuspid regurgitation. Estimated pulmonary artery peak systolic pressure 56 mmHg Pulmonic Valve Trace pulmonary valve regurgitation. Pericardium No pericardial effusion. Aorta Normal aortic annulus size. IVC Normal inferior vena cava. CONCLUSIONS Moderate to severe concentric left ventricular hypertrophy. LV ejection fraction 72%.no regional wall motion abnormalities. Grade I/IV diastolic dysfunction (abnormal relaxation filling pattern), normal to mildly elevated filling pressures. Moderate biatrial enlargement. Possibly normal RV size and ejection fraction. Thickened mitral valve. Moderate mitral annular calcification. Moderate aortic valve calcification. Possibly severe tricuspid regurgitation. Estimated pulmonary artery peak systolic pressure 56 mmHg. Trace pulmonary valve regurgitation. There is no pericardial effusion. There are no intracardiac masses. Compared to the study from 03/15/2017, there is worsening of the tricuspid regurgitation Dr Jacques Valdez MD FAC (Electronically Signed) Final Date: 11 August 2024 20:42 S
[2024-08-11 21:39] LABS: Glucose Point of Care 224 mg/dL (70-110)
[2024-08-12] VITALS (59 sets, daily range): BP systolic 81–140; BP diastolic 47–84; PULSE 64–84; RESP 10–34; TEMP 36.1–37; O2SAT 80–96; BMI 24.2
[2024-08-12] MEDS: norepinephrine 4 MG/250 ML BAG 7.5 MG IV (02:34)
[2024-08-12] MEDS: FUROsemide 10 mg/mL SDV 4mL 40 MG IVP ×2 (05:26→18:04)
[2024-08-12] MEDS: albumin 25 G/100 ML BAG 60 G IV ×2 (05:26→16:56)
[2024-08-12 05:35] LABS: Basophils % 0.6 %; Eosinophils % 0.6 %; Hematocrit 41.3 % (36-47); Lymphocytes % 15.1 %; Mean Corpuscular HGB Conc 31.5 g/dL (30-55); Mean Corpuscular Hemoglobin 28.9 pg (27-33); Mean Corpuscular Volume 91.8 fl (85-98); Mean Platelet Volume 12.6 fL (7.4-10.4); Monocytes # 0.9 10^3/uL (0.2-0.9); Monocytes % 12.9 %; Neutrophils # 4.82 10^3/uL (1.8-7.7); Neutrophils % 70.5 %; Nucleated Red Blood Cells % 0 %; Platelet Count 117 10^3/cmm (157-399); Red Cell Distribution Width 18.2 % (12.1-15.1); White Blood Count 6.83 10^3/uL (3.29-11.43)
[2024-08-12 07:19] LABS: Lactate (Lactic Acid level) 0.9 mmol/L (0.5-2.2)
[2024-08-12 07:31] LABS: NT Pro B Type Natriuretic Pept 10824 pg/mL (0-450)
[2024-08-12 07:42] LABS: Alanine Aminotransferase 23 U/L (0-33); Albumin Level 3.6 g/dL (3.5-5.2); Alkaline Phosphatase 157 U/L (35-105); Anion Gap 23.2 (5-19); Aspartate Amino Transferase 30 U/L (0-32); Blood Urea Nitrogen 28 mg/dL (8-23); C Reactive Protein 24.6 mg/L (0.0-4.9); Calcium 8.9 mg/dL (8.5-10.5); Carbon Dioxide 32 mmol/L (22-29); Chloride 92 mmol/L (98-107); Creatinine Clr Calc Pharmacy 50.8639; Globulin 2.3 g/dL (1.3-4.6); Glucose 85 mg/dL (65-115); Magnesium 1.3 mg/dL (1.7-2.3); Osmolality Calculated 301 mOsm/kg (285-295); Phosphorus 4.4 mg/dL (2.5-4.5); Potassium 4.2 mmol/L (3.5-5.1); Sodium 143 mmol/L (136-145); Total Bilirubin 0.6 mg/dL (0.15-1.2); Total Protein 5.9 g/dL (6.6-8.7)
[2024-08-12 08:17] LABS: Glucose Point of Care 108 mg/dL (70-110)
[2024-08-12] MEDS: potassium chloride ER 20 mEq Tablet 40 MEQ PO (08:22)
[2024-08-12] MEDS: magnesium oxide 400 mg tablet PO (08:22)
[2024-08-12] MEDS: sennosides-docusate Tablet 1 TAB PO (08:22)
[2024-08-12] MEDS: atorvastatin 40 mg Tablet PO (08:22)
[2024-08-12] MEDS: levothyroxine 88 mcg Tablet PO (08:22)
[2024-08-12] MEDS: aspirin 81 mg EC Tablet PO (08:22)
[2024-08-12] MEDS: cefTRIAXone 1,000 mg SDV 1000 MG IVP (09:09)
[2024-08-12] MEDS: metOLazone 5 MG Tablet PO (09:09)
[2024-08-12 11:08] LABS: Glucose Point of Care 178 mg/dL (70-110)
[2024-08-12] MEDS: insulin lispro 100 unit/1 mL SUBCUT ×2 (12:56→21:01)
--- NOTE | 2024-08-12 14:10 | ECG_ITS ---
[employer] Test Date: 2024-08-12 Pat Name: Natalie Marks Department: Room: [facility] Gender: Female Manager Of Case: : 1945 Requested By: Slim Chapa Order Number: [id number] Dewayne MD: Jacques Valdez M.D. Measurements Intervals [place] Rate: 74 P: 0 DC: 0 QRS: -3 QRSD: 148 T: -14 QT: 399 QTc: 444 Interpretive Statements possible junctional tachycardia RIGHT BUNDLE BRANCH BLOCK [120+ ms QRS DURATION, UPRIGHT V1, 40+ ms S IN I/aVL/V4/V5/V6] MODERATE T-WAVE ABNORMALITY, CONSIDER LATERAL ISCHEMIA [-0.1+ mV T-WAVE IN I/aVL/V5/V6] Compared to ECG 08/10/2024 17:15:34 Sinus rhythm no longer present Indeterminate axis no longer present T-wave abnormality still present Possible ischemia still present Electronically Signed On 08-13-2024 17:20:53 [employer] by Jacques Valdez M.D. [email or web address]
--- NOTE | 2024-08-12 15:47 | PM.PN ---
Subjective Subjective: - Patient was seen this morning, she feels significantly better but continues to have shortness of breath, fatigue, malaise, no cough, no abdominal pain, no chest pain Vitals/I&O/Wt Last Vital Signs Temp 98.2 F 08/12/24 12:34 Pulse 74 08/12/24 14:35 Resp 27 H 08/12/24 14:30 BP 87/60 08/12/24 14:30 Pulse Ox 94 08/12/24 14:30 O2 Del Method Nasal Cannula 08/12/24 14:30 O2 Flow Rate 4 08/12/24 12:00 08/12/24 08/12/24 08/12/24 06:59 14:59 22:59 Intake Total 343.125 / 1460.000 544 / 544 Output Total 1650 / 2100 900 / 900 Balance -1306.875 / -640.000 -356 / -356 Weight last 48 hrs Weight 64 kg Weight 65.771 kg Weight 63.503 kg Physical Exam Const: COMMON NORMALS: no acute distress ORIENTATION/CONSCIOUSNESS: Yes awake, Yes oriented to person and Yes oriented to place Resp: COMMON NORMALS: normal respiratory effort, No retractions and No use of accessory muscles AUSCULTATION: crackles and wheezes Cardio: COMMON NORMALS: regular rate, regular rhythm, S1 normal heart sound present and S2 normal heart sound present RATE: regular rate RHYTHM: regular rhythm HEART SOUNDS: S1 normal heart sound present and S2 normal heart sound present GI: COMMON NORMALS: Normal to inspection, nondistended, normoactive bowel sounds present and non-tender Extremity: COMMON NORMALS: no pedal edema Neuro: SENSORIUM/ORIENTATION: Yes oriented to person and Yes oriented to place Psych: COMMON NORMALS: mental status grossly normal Data 08/12/24 04:34 08/12/24 06:52 Micro: Microbiology 08/10/24 14:42 Blood Culture - Preliminary Blood NEGATIVE TO DATE 08/10/24 14:44 Blood Culture - Preliminary Blood NEGATIVE TO DATE A&P Assessment and plan (1) CHF exacerbation: Qualifiers: Heart failure type: unspecified Qualified Code(s): I50.9 - Heart failure, unspecified (2) Tricuspid regurgitation: Qualifiers: Cardiac valve disease etiology: nonrheumatic Qualified Code(s): 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 (3) Diabetes: (4) Hypoxia: (5) Shock: (6) Hematuria: Plan Shock -Requiring Levophed at 2 -Likely cardiogenic -Could be from polypharmacy, multiple blood pressure medications -Lactic acid within normal limits, leukocytosis within normal limits, CRP and Pro-Josh within normal limits, viral respiratory panel within normal limits -Follow blood cultures -UA with evidence of UTI, on Rocephin -Maintain MAP around 65 Acute hypoxia related to systolic and diastolic CHF Currently on 3 L saturating well Continue IV diuresis, 1 dose metolazone Continue Levophed maintain MAP around 65 Cardiac echo 'CONCLUSIONS Moderate to severe concentric left ventricular hypertrophy. LV ejection fraction 72%.no regional wall motion abnormalities. Grade I/IV diastolic dysfunction (abnormal relaxation filling pattern), normal to mildly elevated filling pressures. Moderate biatrial enlargement. Possibly normal RV size and ejection fraction. Thickened mitral valve. Moderate mitral annular calcification. Moderate aortic valve calcification. Possibly severe tricuspid regurgitation. Estimated pulmonary artery peak systolic pressure 56 mmHg. Trace pulmonary valve regurgitation. There is no pericardial effusion. There are no intracardiac masses. Compared to the study from 03/15/2017, there is worsening of the tricuspid regurgitation Type 2 diabetes mellitus, low-dose sliding scale Hematuria, renal ultrasound, resolved / renal BI* [id number] IMPRESSION: 1. No obstructing urinary stones. No hydronephrosis on either side. 2. Mild ascites. DNR/DNI Cardiac consistent carb diet Insulin sliding scale Patient uses a walker [facility] Necessity Statement*: Patient requires hospitalization for shock, acute hypoxia secondary to systolic diastolic CHF, hematuria Diagnoses CHF exacerbation I50.9 Heart failure type: unspecified Nonrheumatic tricuspid valve regurgitation I36.1 Cardiac valve disease etiology: nonrheumatic Diabetes E11.9 Hypoxia R09.02 Shock R57.9 Hematuria R31.9
--- NOTE | 2024-08-12 15:50 | USR_ITS ---
PROCEDURE INFORMATION: Exam: US Retroperitoneal, Complete, Kidneys and Bladder Exam date and time: 08/12/2024 7:47 AM Age: 79 years old Clinical indication: Other: Hematuria TECHNIQUE: Imaging protocol: Real-time ultrasound of the retroperitoneum with image documentation. Complete exam focused on the bilateral kidneys and urinary bladder. COMPARISON: [place] [id number] 08/12/2024 6:47 AM FINDINGS: Right kidney: Right kidney measures 5.2 x 5.3 x 11.1 cm with cortical thickness of 1.4 cm. Left kidney: The left kidney measures 4.8 x 5.5 x 11.1 cm with cortical thickness of 1.3 cm. Urinary bladder: Soto catheter in the bladder. Intraperitoneal space: There is mild ascites. Other findings: No hydronephrosis on either side. US/US renal BI* [id number] IMPRESSION: 1. No obstructing urinary stones. No hydronephrosis on either side. 2. Mild ascites.
--- NOTE | 2024-08-12 15:54 | USR_ITS ---
PROCEDURE INFORMATION: Exam: US Duplex Lower Extremity Veins, Bilateral Exam date and time: 08/12/2024 6:47 AM Age: 79 years old Clinical indication: Edema, localized; Lower extremity, bilateral; Additional info: Swelling TECHNIQUE: Imaging protocol: Real-time duplex ultrasound of the bilateral extremities with 2-D menard scale, color Doppler flow and spectral waveform analysis including responses to compression and other maneuvers (when performed) with image documentation. Complete exam focused on the lower extremity veins. COMPARISON: No relevant prior studies available. FINDINGS: Right deep veins: Unremarkable. The common femoral, femoral, proximal profunda femoral and popliteal veins are patent without thrombus. Normal Doppler waveforms. Normal compressibility and/or augmentation response. Left deep veins: Unremarkable. The common femoral, femoral, proximal profunda femoral and popliteal veins are patent without thrombus. Normal Doppler waveforms. Normal compressibility and/or augmentation response. Superficial veins: Greater saphenous veins at the saphenofemoral junctions are patent bilaterally without thrombus. Soft tissues: Subcutaneous edema. US/CV venous duplex [facility] [id number] IMPRESSION: No DVT.
[2024-08-12] MEDS: midodrine 5 mg TABLET 10 MG PO (16:16)
[2024-08-12 17:21] LABS: Glucose Point of Care 117 mg/dL (70-110)
[2024-08-12] MEDS: enoxaparin 40 mg/0.4 mL Syringe SUBCUT (18:04)
[2024-08-12 20:55] LABS: Glucose Point of Care 170 mg/dL (70-110)
[2024-08-13] VITALS (44 sets, daily range): BP systolic 82–153; BP diastolic 54–85; PULSE 62–83; RESP 10–33; TEMP 36.4–36.9; O2SAT 84–98
[2024-08-13] MEDS: midodrine 5 mg TABLET 10 MG PO ×3 (00:08→16:27)
[2024-08-13 05:51] LABS: Basophils % 0.5 %; Eosinophils % 0.2 %; Hematocrit 40.1 % (36-47); Lymphocytes # 1.2 10^3/uL (0.8-4.8); Lymphocytes % 14.1 %; Mean Corpuscular HGB Conc 31.2 g/dL (30-55); Mean Corpuscular Hemoglobin 28.3 pg (27-33); Mean Corpuscular Volume 90.9 fl (85-98); Mean Platelet Volume 12.5 fL (7.4-10.4); Monocytes # 1.1 10^3/uL (0.2-0.9); Monocytes % 13.3 %; Neutrophils # 5.91 10^3/uL (1.8-7.7); Neutrophils % 71.4 %; Nucleated Red Blood Cells % 0 %; Platelet Count 141 10^3/cmm (157-399); Red Blood Count 4.41 10^6/uL (3.85-5.65); Red Cell Distribution Width 17.8 % (12.1-15.1); White Blood Count 8.28 10^3/uL (3.29-11.43)
[2024-08-13] MEDS: FUROsemide 10 mg/mL SDV 4mL 40 MG IVP ×2 (05:56→17:15)
[2024-08-13] MEDS: albumin 25 G/100 ML BAG 60 G IV ×2 (05:59→17:15)
[2024-08-13 06:13] LABS: Lactate (Lactic Acid level) 0.8 mmol/L (0.5-2.2)
[2024-08-13 08:16] LABS: NT Pro B Type Natriuretic Pept 16201 pg/mL (0-450); Procalcitonin 0.29 ng/mL (0-0.5)
[2024-08-13 08:27] LABS: Alanine Aminotransferase 23 U/L (0-33); Alkaline Phosphatase 149 U/L (35-105); Anion Gap 17.8 (5-19); Aspartate Amino Transferase 30 U/L (0-32); Blood Urea Nitrogen 30 mg/dL (8-23); C Reactive Protein 44.9 mg/L (0.0-4.9); Calcium 9.5 mg/dL (8.5-10.5); Carbon Dioxide 31 mmol/L (22-29); Chloride 95 mmol/L (98-107); Creatinine Clr Calc Pharmacy 50.6909; Globulin 2.3 g/dL (1.3-4.6); Glucose 64 mg/dL (65-115); Magnesium 1.2 mg/dL (1.7-2.3); Osmolality Calculated 294 mOsm/kg (285-295); Phosphorus 5.1 mg/dL (2.5-4.5); Potassium 3.8 mmol/L (3.5-5.1); Sodium 140 mmol/L (136-145); Total Bilirubin 0.8 mg/dL (0.15-1.2); Total Protein 6.3 g/dL (6.6-8.7)
[2024-08-13] MEDS: aspirin 81 mg EC Tablet PO (09:00)
[2024-08-13] MEDS: magnesium oxide 400 mg tablet PO (09:00)
[2024-08-13] MEDS: potassium chloride ER 20 mEq Tablet 40 MEQ PO (09:00)
[2024-08-13] MEDS: atorvastatin 40 mg Tablet PO (09:01)
[2024-08-13] MEDS: levothyroxine 88 mcg Tablet PO (09:01)
[2024-08-13] MEDS: insulin lispro 100 unit/1 mL SUBCUT ×2 (09:01→22:14)
[2024-08-13] MEDS: sennosides-docusate Tablet 1 TAB PO (09:02)
[2024-08-13] MEDS: cefTRIAXone 1,000 mg SDV 1000 MG IVP (09:03)
[2024-08-13] MEDS: metOLazone 5 MG Tablet PO (12:42)
[2024-08-13] MEDS: TRAMadol 50 mg Tablet PO (13:44)
--- NOTE | 2024-08-13 14:29 | PC.SOCIAL ---
IMM updated IMM dated and initialed, copy given to patient and copy placed in chart.
--- NOTE | 2024-08-13 16:37 | PC.NURSE ---
Report called to CSU. Report given to RIRI Cheema.
--- NOTE | 2024-08-13 16:56 | P.PN_ITS ---
Subjective 2 Subjective: Patient was seen this morning, she is sitting up in a chair, alert oriented x 3, following all commands, her shortness of breath has significantly improved, no fevers, no chills Vitals/I&O/Wt Last Vital Signs Temp 97.5 F L 08/13/24 08:00 Pulse 75 08/13/24 10:00 Resp 15 08/13/24 10:00 BP 129/75 08/13/24 10:00 Pulse Ox 92 08/13/24 10:00 O2 Del Method Nasal Cannula 08/13/24 10:00 O2 Flow Rate 4 08/13/24 10:00 08/13/24 08/13/24 08/13/24 06:59 14:59 22:59 Intake Total 77.875 / 1316.500 450 / 450 450 / 900 Output Total 1000 / 2700 1550 / 1550 Balance -922.125 / -1383.500 -1100 / -1100 450 / -650 Weight last 48 hrs Weight 63.503 kg Weight 64 kg Physical Exam 2 Const: COMMON NORMALS: no acute distress and patient oriented x3 Resp: COMMON NORMALS: normal respiratory effort, No retractions, No use of accessory muscles and clear to auscultation bilaterally AUSCULTATION: clear to auscultation bilaterally Cardio: COMMON NORMALS: regular rate, regular rhythm, S1 normal heart sound present and S2 normal heart sound present RATE: regular rate RHYTHM: r egular rhythm HEART SOUNDS: S1 normal heart sound present and S2 normal heart sound present GI: COMMON NORMALS: Normal to inspection, nondistended, normoactive bowel sounds present and non-tender Extremity: COMMON NORMALS: no pedal edema Neuro: COMMON NORMALS: patient oriented x3 Psych: COMMON NORMALS: mental status grossly normal Data 08/13/24 04:14 08/13/24 07:24 Micro: Microbiology 08/11/24 16:45 Urine Culture - Preliminary Urine,Clean Catch Gram Negative Rods A&P Assessment and plan (1) CHF exacerbation: Qualifiers: Heart failure type: unspecified Qualified Code(s): I50.9 - Heart failure, unspecified (2) Tricuspid regurgitation: Qualifiers: Cardiac valve disease etiology: nonrheumatic Qualified Code(s): 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 (3) Diabetes: (4) Hypoxia: (5) Shock: (6) Hematuria: Plan Shock -Off Levophed -Likely cardiogenic -Could be from polypharmacy, multiple blood pressure medications -Lactic acid within normal limits, leukocytosis within normal limits, CRP and Pro-Ojsh within normal limits, viral respiratory panel within normal limits -Follow blood cultures -UA with evidence of UTI, on Rocephin -Maintain MAP around 65 Acute hypoxia related to systolic and diastolic CHF Currently on 3 L saturating well Continue IV diuresis, 1 dose metolazone Continue Levophed maintain MAP around 65 Cardiac echo 'CONCLUSIONS Moderate to severe concentric left ventricular hypertrophy. LV ejection fraction 72%.no regional wall motion abnormalities. Grade I/IV diastolic dysfunction (abnormal relaxation filling pattern), normal to mildly elevated filling pressures. Moderate biatrial enlargement. Possibly normal RV size and ejection fraction. Thickened mitral valve. Moderate mitral annular calcification. Moderate aortic valve calcification. Possibly severe tricuspid regurgitation. Estimated pulmonary artery peak systolic pressure 56 mmHg. Trace pulmonary valve regurgitation. There is no pericardial effusion. There are no intracardiac masses. Compared to the study from 03/15/2017, there is worsening of the tricuspid regurgitation Type 2 diabetes mellitus, low-dose sliding scale Hematuria, renal ultrasound, resolved US/ renal BI* [id number] IMPRESSION: 1. No obstructing urinary stones. No hydronephrosis on either side. 2. Mild ascites. DNR/DNI Cardiac consistent carb diet Insulin sliding scale Patient uses a walker Resident of [facility] Plan for today continue IV diuresis, transition to midodrine, remains off Levophed Attestations 2 Medical Necessity Statement*: Patient requires hospitalization for acute hypoxic respiratory failure secondary to CHF requiring IV diuresis Diagnoses CHF exacerbation I50.9 Heart failure type: unspecified Nonrheumatic tricuspid valve regurgitation I36.1 Cardiac valve disease etiology: nonrheumatic Diabetes E11.9 Hypoxia R09.02 Shock R57.9 Hematuria R31.9
[2024-08-13] MEDS: acetaminophen 325 mg Tablet 650 MG PO (17:13)
--- NOTE | 2024-08-13 17:30 | PC.NURSE ---
Evening meds admin. Called CSU to update RIRI CARRINGTON. Pt transferred to room 101 with her belongings. Call family contact and informed of transfer to new room.
[2024-08-13] MEDS: enoxaparin 40 mg/0.4 mL Syringe SUBCUT (18:30)
--- NOTE | 2024-08-13 19:16 | PC.NURSE ---
Pt transferred to CSU from ICU. Pt has patent urinary catheter in place. No order placed or documented. Will add order set for gandhi catheter.
[2024-08-13 21:29] LABS: Glucose Point of Care 164 mg/dL (70-110)
[2024-08-14] VITALS (13 sets, daily range): BP systolic 97–133; BP diastolic 60–87; PULSE 57–93; RESP 18–25; TEMP 36.3–37; O2SAT 90–95
[2024-08-14] MEDS: midodrine 5 mg TABLET 10 MG PO ×3 (00:02→15:14)
[2024-08-14 03:28] LABS: Basophils # 0.1 10^3/uL (0.0-0.1); Basophils % 0.7 %; Eosinophils % 0.3 %; Hematocrit 40.7 % (36-47); Mean Corpuscular Hemoglobin 28.6 pg (27-33); Mean Corpuscular Volume 92.3 fl (85-98); Mean Platelet Volume 11.5 fL (7.4-10.4); Monocytes # 1.1 10^3/uL (0.2-0.9); Monocytes % 14.9 %; Neutrophils # 5.21 10^3/uL (1.8-7.7); Neutrophils % 70.7 %; Nucleated Red Blood Cells % 0 %; Platelet Count 128 10^3/cmm (157-399); Red Blood Count 4.41 10^6/uL (3.85-5.65); Red Cell Distribution Width 17.7 % (12.1-15.1); White Blood Count 7.37 10^3/uL (3.29-11.43)
[2024-08-14 04:02] LABS: NT Pro B Type Natriuretic Pept 18035 pg/mL (0-450); Procalcitonin 0.46 ng/mL (0-0.5)
[2024-08-14 04:04] LABS: Alanine Aminotransferase 24 U/L (0-33); Albumin Level 3.7 g/dL (3.5-5.2); Alkaline Phosphatase 161 U/L (35-105); Blood Urea Nitrogen 34 mg/dL (8-23); C Reactive Protein 86.4 mg/L (0.0-4.9); Carbon Dioxide 32 mmol/L (22-29); Chloride 98 mmol/L (98-107); Creatinine Clr Calc Pharmacy 50.6909; Globulin 1.6 g/dL (1.3-4.6); Glucose 71 mg/dL (65-115); Magnesium 1.3 mg/dL (1.7-2.3); Osmolality Calculated 302 mOsm/kg (285-295); Phosphorus 5.9 mg/dL (2.5-4.5); Sodium 143 mmol/L (136-145); Total Bilirubin 0.7 mg/dL (0.15-1.2); Total Protein 5.3 g/dL (6.6-8.7)
[2024-08-14 04:06] LABS: Lactate (Lactic Acid level) 0.8 mmol/L (0.5-2.2)
[2024-08-14 04:08] LABS: Anion Gap 17.7 (5-19); Aspartate Amino Transferase 31 U/L (0-32); Potassium 4.7 mmol/L (3.5-5.1)
[2024-08-14] MEDS: FUROsemide 10 mg/mL SDV 4mL 40 MG IVP ×2 (06:22→15:16)
[2024-08-14] MEDS: albumin 25 G/100 ML BAG 60 G IV ×2 (06:22→15:16)
[2024-08-14 06:48] LABS: Glucose Point of Care 96 mg/dL (70-110)
[2024-08-14 06:48] LABS: Glucose Point of Care 65 mg/dL (70-110)
[2024-08-14] MEDS: metOLazone 5 MG Tablet PO (08:50)
[2024-08-14] MEDS: levothyroxine 88 mcg Tablet PO (08:51)
[2024-08-14] MEDS: magnesium sulfate premix 1 GM/100 ML PIGGYBACK IV (08:51)
[2024-08-14] MEDS: potassium chloride ER 20 mEq Tablet 40 MEQ PO (08:51)
[2024-08-14] MEDS: atorvastatin 40 mg Tablet PO (08:51)
[2024-08-14] MEDS: sennosides-docusate Tablet 1 TAB PO (08:52)
[2024-08-14] MEDS: aspirin 81 mg EC Tablet PO (08:52)
[2024-08-14] MEDS: cefTRIAXone 1,000 mg SDV 1000 MG IVP (08:53)
[2024-08-14] MEDS: magnesium oxide 400 mg tablet PO (08:53)
[2024-08-14 11:21] LABS: Glucose Point of Care 105 mg/dL (70-110)
[2024-08-14 11:45] LABS: Glucose Point of Care 68 mg/dL (70-110)
[2024-08-14 11:45] LABS: Glucose Point of Care 124 mg/dL (70-110)
[2024-08-14 11:45] LABS: Glucose Point of Care 123 mg/dL (70-110)
[2024-08-14] MEDS: meropenem 500 mg SDV IVP ×2 (12:28→21:22)
--- NOTE | 2024-08-14 12:54 | P.PN_ITS ---
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, she has had a decreased quality of life in the last few months, she tells me that she is frustrated about this fluid buildup she just does not want to come back to the hospital recurrently she does not want to to go to doctors visits, she tells me what is the point I do not want to prolong anything, above I will just want to be comfortable, and I do not want to suffer, and I want to have a good quality of life for the time that I have remaining -We had a detailed discussion with her a bout hospice and what hospice would entail, she is not ready to say yes right now but she is interested in the idea of hospice -We discussed that I think I can get her breathing better with further diuresis, which should help with her breathing, I can understand her decreased functionality for postpolio syndrome, and I do not have a good solution for that but I can understand where she is coming from given her declining functionality, -After extensive discussion, about her g oals of care she remains a DNR/DNI above all she wants to remain comfortable she does not want to have aggressive interventions, she does not want anything the life prolonging, but she does not want to remain comfortable and as I had a detailed discussion with her I think that diuresis is going to make her more comfortable, Vitals/I&O/Wt Last Vital Signs Temp 97.3 F L 08/14/24 12:00 Pulse 85 08/14/24 12:00 Resp 18 08/14/24 12:00 BP 128/81 08/14/24 12:00 Pulse Ox 95 08/14/24 12:00 O2 Del Method Nasal Cannula 08/14/24 11:19 O2 Flow Rate 6 08/14/24 11:19 08/13/24 08/14/24 08/14/24 22:59 06:59 14:59 Intake Total 790 / 1240 200 / 200 Output Total 700 / 2250 900 / 900 Balance 790 / -310 -700 / -1010 -700 / -700 Weight last 48 hrs Weight 64.954 kg Weight 63.503 kg Physical Exam 2 Const: COMMON NORMALS: no acute distress and patient oriented x3 Resp: COMMON NORMALS: normal respiratory effort, No retractions and No use of accessory muscles AUSCULTATION: crackles and wheezes Cardio: COMMON NORMALS: regular rate, regular rhythm, S1 normal heart sound present and S2 normal heart sound present RATE: regular rate RHYTHM: r egular rhythm HEART SOUNDS: S1 normal heart sound present and S2 normal heart sound present GI: COMMON NORMALS: Normal to inspection, nondistended, normoactive bowel sounds present and non-tender Extremity: COMMON NORMALS: no pedal edema Neuro: COMMON NORMALS: patient oriented x3 Psych: COMMON NORMALS: mental status grossly normal Urinary Catheter Management: Soto: Cath Placed During This Visit: no Reason for Continuing Indwelling Catheter: Accurate Measurement of Urinary Output in Critically Ill Patients Data 08/14/24 02:25 08/14/24 02:25 Micro: Microbiology 08/11/24 16:45 Urine Culture - Final Urine,Clean Catch Gram Negative Rods A&P Assessment and plan (1) CHF exacerbation: Qualifiers: Heart failure type: unspecified Qualified Code(s): I50.9 - Heart failure, unspecified (2) Tricuspid regurgitation: Qualifiers: Cardiac valve disease etiology: nonrheumatic Qualified Code(s): 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 (3) Diabetes: (4) Hypoxia: (5) Shock: (6) Hematuria: (7) Goals of care, counseling/discussion: (8) Acute hypoxic respiratory failure: (9) UTI (urinary tract infection): Plan Shock -Off Levophed -Likely cardiogenic, tricuspid regurgitation -Could be from polypharmacy, multiple blood pressure medications -Lactic acid within normal limits, leukocytosis within normal limits, CRP and Pro-Josh within normal limits, viral respiratory panel within normal limits -Follow blood cultures -Continue midodrine -Maintain MAP around 65 Urinary tract infection -With worsening CRP -Will broaden antibiotic coverage to meropenem to cover for ESBL species Acute hypoxia related to systolic and diastolic CHF Currently on 6 L saturating well, complaining of persistent shortness of breath Continue IV diuresis Lasix 40 IV every 8 hours, 1 dose metolazone Continue Levophed maintain MAP around 65 Cardiac echo 'CONCLUSIONS Moderate to severe concentric left ventricular hypertrophy. LV ejection fraction 72%.no regional wall motion abnormalities. Grade I/IV diastolic dysfunction (abnormal relaxation filling pattern), normal to mildly elevated filling pressures. Moderate biatrial enlargement. Possibly normal RV size and ejection fraction. Thickened mitral valve. Moderate mitral annular calcification. Moderate aortic valve calcification. Possibly severe tricuspid regurgitation. Estimated pulmonary artery peak systolic pressure 56 mmHg. Trace pulmonary valve regurgitation. There is no pericardial effusion. There are no intracardiac masses. Compared to the study from 03/15/2017, there is worsening of the tricuspid regurgitation Severe tricuspid valve regurgitation -Likely etiology behind her acute hypoxia, and CHF, for persistent versus breath and shock -Patient does not want to have aggressive interventions Type 2 diabetes mellitus, low-dose sliding scale Hematuria, renal ultrasound, resolved US/ renal BI* [id number] IMPRESSION: 1. No obstructing urinary stones. No hydronephrosis on either side. 2. Mild ascites. Goals of care discussion, patient is DNR/DNI, patient does not want to have aggressive interventions, overall wants to emphasize quality of life, does not want life prolonging measures, is considering hospice DNR/DNI Cardiac consistent carb diet Insulin sliding scale Patient uses a walker Resident of [facility] Plan for today increase diuresis to Lasix 40 IV every 8 hours, midodrine, metolazone, broaden antibiotic coverage to meropenem Attestations 2 Medical Necessity Statement*: Patient requires hospitalization, for acute hypoxic respiratory failure secondary to CHF, tricuspid valve regurg, urinary tract infection Diagnoses CHF exacerbation I50.9 Heart failure type: unspecified 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
[2024-08-14] MEDS: lidocaine 2% viscous 15 ML, aluminum-mag hydrox-simethicon 30 ML, sucralfate oral liq 1 GM PO (15:13)
[2024-08-14 16:44] LABS: Glucose Point of Care 156 mg/dL (70-110)
[2024-08-14] MEDS: pantoprazole DR 40 mg Tablet PO (17:53)
[2024-08-14] MEDS: insulin lispro 100 unit/1 mL SUBCUT (18:24)
[2024-08-14] MEDS: enoxaparin 40 mg/0.4 mL Syringe SUBCUT (18:25)
[2024-08-14 20:23] LABS: Glucose Point of Care 114 mg/dL (70-110)
[2024-08-15] VITALS (10 sets, daily range): BP systolic 87–137; BP diastolic 54–80; PULSE 66–75; RESP 16–28; TEMP 36.4–37.3; O2SAT 92–96
[2024-08-15] MEDS: midodrine 5 mg TABLET 10 MG PO ×3 (00:34→15:38)
[2024-08-15] MEDS: FUROsemide 10 mg/mL SDV 4mL 40 MG IVP ×3 (00:40→18:08)
[2024-08-15] MEDS: meropenem 500 mg SDV IVP ×3 (03:47→20:12)
[2024-08-15] MEDS: albumin 25 G/100 ML BAG 60 G IV ×3 (03:47→18:09)
[2024-08-15 03:56] LABS: Basophils % 0.8 %; Eosinophils # 0.1 10^3/uL (0.0-0.8); Eosinophils % 1.4 %; Hematocrit 40.5 % (36-47); Lymphocytes # 0.7 10^3/uL (0.8-4.8); Lymphocytes % 14.1 %; Mean Corpuscular HGB Conc 31.6 g/dL (30-55); Mean Corpuscular Hemoglobin 28.6 pg (27-33); Mean Corpuscular Volume 90.6 fl (85-98); Mean Platelet Volume 11.3 fL (7.4-10.4); Monocytes # 0.8 10^3/uL (0.2-0.9); Neutrophils # 3.46 10^3/uL (1.8-7.7); Neutrophils % 67.5 %; Nucleated Red Blood Cells % 0 %; Platelet Count 141 10^3/cmm (157-399); Red Blood Count 4.47 10^6/uL (3.85-5.65); Red Cell Distribution Width 17.2 % (12.1-15.1); White Blood Count 5.12 10^3/uL (3.29-11.43)
[2024-08-15 04:25] LABS: Alanine Aminotransferase 22 U/L (0-33); Alkaline Phosphatase 165 U/L (35-105); Anion Gap 15.8 (5-19); Aspartate Amino Transferase 29 U/L (0-32); Blood Urea Nitrogen 35 mg/dL (8-23); Calcium 9.2 mg/dL (8.5-10.5); Carbon Dioxide 36 mmol/L (22-29); Chloride 92 mmol/L (98-107); Creatinine Clr Calc Pharmacy 51.1962; Globulin 1.7 g/dL (1.3-4.6); Glucose 72 mg/dL (65-115); Magnesium 1.3 mg/dL (1.7-2.3); Osmolality Calculated 295 mOsm/kg (285-295); Phosphorus 4.7 mg/dL (2.5-4.5); Potassium 4.8 mmol/L (3.5-5.1); Sodium 139 mmol/L (136-145); Total Bilirubin 0.8 mg/dL (0.15-1.2); Total Protein 5.7 g/dL (6.6-8.7)
[2024-08-15 04:48] LABS: NT Pro B Type Natriuretic Pept 15442 pg/mL (0-450)
[2024-08-15 06:26] LABS: Glucose Point of Care 81 mg/dL (70-110)
[2024-08-15] MEDS: pantoprazole DR 40 mg Tablet PO (09:17)
[2024-08-15] MEDS: sennosides-docusate Tablet 1 TAB PO (09:17)
[2024-08-15] MEDS: aspirin 81 mg EC Tablet PO (09:17)
[2024-08-15] MEDS: metOLazone 5 MG Tablet PO (09:18)
[2024-08-15] MEDS: atorvastatin 40 mg Tablet PO (09:19)
[2024-08-15] MEDS: potassium chloride ER 20 mEq Tablet 40 MEQ PO (09:19)
[2024-08-15] MEDS: levothyroxine 88 mcg Tablet PO (09:19)
[2024-08-15] MEDS: magnesium sulfate premix 1 GM/100 ML PIGGYBACK IV (09:20)
[2024-08-15] MEDS: magnesium oxide 400 mg tablet PO (09:23)
[2024-08-15 12:37] LABS: Glucose Point of Care 241 mg/dL (70-110)
[2024-08-15] MEDS: insulin lispro 100 unit/1 mL SUBCUT ×3 (13:12→21:44)
--- NOTE | 2024-08-15 14:57 | P.PN_ITS ---
Subjective 2 Subjective: Patient was seen this morning, her breathing is improving she is down to 3 L, no chest pain, palpitations, no nausea, no vomiting Vitals/I&O/Wt Last Vital Signs Temp 99.1 F 08/15/24 12:00 Pulse 75 08/15/24 12:00 Resp 28 H 08/15/24 12:00 BP 137/80 08/15/24 12:00 Pulse Ox 92 08/15/24 12:00 O2 Del Method Nasal Cannula 08/15/24 12:00 O2 Flow Rate 3 08/15/24 12:00 08/14/24 08/15/24 08/15/24 22:59 06:59 14:59 Intake Total 580 / 915 100 / 1015 440 / 440 Output Total 1200 / 2100 940 / 940 Balance -620 / -1185 100 / -1085 -500 / -500 Weight last 48 hrs Weight 61.008 kg Weight 64.954 kg Physical Exam 2 Const: COMMON NORMALS: no acute distress and patient oriented x3 Resp: COMMON NORMALS: normal respiratory effort, No retractions, No use of accessory muscles and clear to auscultation bilaterally AUSCULTATION: clear to auscultation bilaterally Cardio: COMMON NORMALS: regular rate, regular rhythm, S1 normal heart sound present and S2 normal heart sound present RATE: regular rate RHYTHM: r egular rhythm HEART SOUNDS: S1 normal heart sound present and S2 normal heart sound present GI: COMMON NORMALS: Normal to inspection, nondistended, normoactive bowel sounds present and non-tender Extremity: COMMON NORMALS: no pedal edema Neuro: COMMON NORMALS: patient oriented x3 Psych: COMMON NORMALS: mental status grossly normal Urinary Catheter Management: Soto: Cath Placed During This Visit: no Reason for Continuing Indwelling Catheter: Accurate Measurement of Urinary Output in Critically Ill Patients Data 08/15/24 03:41 08/15/24 03:41 Micro: Microbiology 08/10/24 14:42 Blood Culture - Final Blood NO GROWTH AFTER 5 DAYS 08/10/24 14:44 Blood Culture - Final Blood NO GROWTH AFTER 5 DAYS 08/11/24 16:45 Urine Culture - Final Urine,Clean Catch Gram Negative Rods A&P Assessment and plan (1) CHF exacerbation: Qualifiers: Heart failure type: unspecified Qualified Code(s): I50.9 - Heart failure, unspecified (2) Tricuspid regurgitation: Qualifiers: Cardiac valve disease etiology: nonrheumatic Qualified Code(s): 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 (3) Diabetes: (4) Hypoxia: (5) Shock: (6) Hematuria: (7) Goals of care, counseling/discussion: (8) Acute hypoxic respiratory failure: (9) UTI (urinary tract infection): Plan Shock -Off Levophed -Likely cardiogenic, tricuspid regurgitation -Could be from polypharmacy, multiple blood pressure medications -Lactic acid within normal limits, leukocytosis within normal limits, CRP and Pro-Josh within normal limits, viral respiratory panel within normal limits -Follow blood cultures -Continue midodrine -Maintain MAP around 65 Urinary tract infection -With worsening CRP -Will broaden antibiotic coverage to meropenem to cover for ESBL species Acute hypoxia related to systolic and diastolic CHF Currently on 6 L saturating well, complaining of persistent shortness of breath Continue IV diuresis Lasix 40 IV every 8 hours, 1 dose metolazone Continue Levophed maintain MAP around 65 Cardiac echo 'CONCLUSIONS Moderate to severe concentric left ventricular hypertrophy. LV ejection fraction 72%.no regional wall motion abnormalities. Grade I/IV diastolic dysfunction (abnormal relaxation filling pattern), normal to mildly elevated filling pressures. Moderate biatrial enlargement. Possibly normal RV size and ejection fraction. Thickened mitral valve. Moderate mitral annular calcification. Moderate aortic valve calcification. Possibly severe tricuspid regurgitation. Estimated pulmonary artery peak systolic pressure 56 mmHg. Trace pulmonary valve regurgitation. There is no pericardial effusion. There are no intracardiac masses. Compared to the study from 03/15/2017, there is worsening of the tricuspid regurgitation Severe tricuspid valve regurgitation -Likely etiology behind her acute hypoxia, and CHF, for persistent versus breath and shock -Patient does not want to have aggressive interventions Type 2 diabetes mellitus, low-dose sliding scale Hematuria, renal ultrasound, resolved US/US renal BI* [id number] IMPRESSION: 1. No obstructing urinary stones. No hydronephrosis on either side. 2. Mild ascites. Goals of care discussion, patient is DNR/DNI, patient does not want to have aggressive interventions, overall wants to emphasize quality of life, does not want life prolonging measures, is considering hospice DNR/DNI Cardiac consistent carb diet Insulin sliding scale Patient uses a walker Resident of [facility] Plan for today increase diuresis to Lasix 40 IV every 8 hours, midodrine, metolazone, broaden antibiotic coverage to meropenem Attestations 2 Medical Necessity Statement*: Patient requires hospitalization for IV diuresis for CHF exacerbation Diagnoses CHF exacerbation I50.9 Heart failure type: unspecified 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
[2024-08-15 15:26] LABS: Glucose Point of Care 236 mg/dL (70-110)
[2024-08-15 16:31] LABS: Glucose Point of Care 208 mg/dL (70-110)
[2024-08-15] MEDS: enoxaparin 40 mg/0.4 mL Syringe SUBCUT (18:07)
[2024-08-15 20:41] LABS: Glucose Point of Care 169 mg/dL (70-110)
[2024-08-16] VITALS (7 sets, daily range): BP systolic 95–126; BP diastolic 48–86; PULSE 64–73; RESP 17–25; TEMP 36.6–36.8; O2SAT 82–96
[2024-08-16] MEDS: FUROsemide 10 mg/mL SDV 4mL 40 MG IVP ×2 (01:23→09:08)
[2024-08-16] MEDS: midodrine 5 mg TABLET 10 MG PO ×2 (01:24→09:07)
[2024-08-16] MEDS: albumin 25 G/100 ML BAG 60 G IV ×2 (01:24→09:06)
[2024-08-16 03:58] LABS: Glucose Point of Care 76 mg/dL (70-110)
[2024-08-16 04:03] LABS: Basophils % 0.4 %; Eosinophils % 0.5 %; Hematocrit 38.7 % (36-47); Lymphocytes # 0.5 10^3/uL (0.8-4.8); Lymphocytes % 8.6 %; Mean Corpuscular HGB Conc 31.5 g/dL (30-55); Mean Corpuscular Hemoglobin 28.2 pg (27-33); Mean Corpuscular Volume 89.6 fl (85-98); Mean Platelet Volume 11.4 fL (7.4-10.4); Monocytes # 0.8 10^3/uL (0.2-0.9); Monocytes % 14.2 %; Neutrophils # 4.22 10^3/uL (1.8-7.7); Neutrophils % 75.8 %; Nucleated Red Blood Cells % 0 %; Platelet Count 108 10^3/cmm (157-399); Red Blood Count 4.32 10^6/uL (3.85-5.65); Red Cell Distribution Width 17.1 % (12.1-15.1); White Blood Count 5.57 10^3/uL (3.29-11.43)
[2024-08-16] MEDS: meropenem 500 mg SDV IVP (04:21)
[2024-08-16 04:27] LABS: Alanine Aminotransferase 15 U/L (0-33); Albumin Level 4.4 g/dL (3.5-5.2); Alkaline Phosphatase 120 U/L (35-105); Aspartate Amino Transferase 19 U/L (0-32); Blood Urea Nitrogen 35 mg/dL (8-23); Calcium 9.8 mg/dL (8.5-10.5); Carbon Dioxide 39 mmol/L (22-29); Chloride 92 mmol/L (98-107); Creatinine Clr Calc Pharmacy 49.8219; Globulin 1.8 g/dL (1.3-4.6); Glucose 74 mg/dL (65-115); Magnesium 1.2 mg/dL (1.7-2.3); Osmolality Calculated 301 mOsm/kg (285-295); Phosphorus 4.1 mg/dL (2.5-4.5); Sodium 142 mmol/L (136-145); Total Bilirubin 1.2 mg/dL (0.15-1.2); Total Protein 6.2 g/dL (6.6-8.7)
[2024-08-16 04:34] LABS: Anion Gap 14.7 (5-19); Potassium 3.7 mmol/L (3.5-5.1)
[2024-08-16 04:38] LABS: NT Pro B Type Natriuretic Pept 14179 pg/mL (0-450); Slide Review Slide Review Perform
[2024-08-16 06:25] LABS: Glucose Point of Care 82 mg/dL (70-110)
[2024-08-16] MEDS: magnesium sulfate premix 1 GM/100 ML PIGGYBACK IV (09:05)
[2024-08-16] MEDS: sennosides-docusate Tablet 1 TAB PO (09:07)
[2024-08-16] MEDS: pantoprazole DR 40 mg Tablet PO (09:07)
[2024-08-16] MEDS: atorvastatin 40 mg Tablet PO (09:07)
[2024-08-16] MEDS: magnesium oxide 400 mg tablet PO (09:07)
[2024-08-16] MEDS: aspirin 81 mg EC Tablet PO (09:07)
[2024-08-16] MEDS: potassium chloride ER 20 mEq Tablet 40 MEQ PO (09:08)
[2024-08-16] MEDS: levothyroxine 88 mcg Tablet PO (09:08)
[2024-08-16] MEDS: metOLazone 5 MG Tablet PO (09:08)
--- NOTE | 2024-08-16 11:00 | PM.DCS ---
Discharge Providers Date of Admission: 08/11/24 17:35 Date of Discharge: August 16, 2024 Attending Provider at Admission: Jsaon Pollock MD Attending Provider at Discharge: Slim Chapa MD Primary Care Provider: Ximena Carpenter Diagnoses at Discharge Discharge Diagnosis (1) CHF exacerbation: Status: Resolved Qualifiers: Heart failure type: unspecified Qualified Code(s): I50.9 - Heart failure, unspecified (2) Tricuspid regurgitation: Status: Acute Qualifiers: Cardiac valve disease etiology: nonrheumatic Qualified Code(s): 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 (3) Diabetes: Status: Acute (4) Hypoxia: Status: Resolved (5) Shock: Status: Resolved (6) Hematuria: Status: Resolved (7) Goals of care, counseling/discussion: Status: Resolved (8) Acute hypoxic respiratory failure: Status: Resolved (9) UTI (urinary tract infection): Status: Resolved Reason for Visit Reason for Visit: SOB Hospital Course Hospital Course Natalie Marks is a 79-year-old female with a past medical history of hypertension, cardiac murmur, postpolio syndrome, dyslipidemia, type 2 diabetes who presents [facility] for shortness of breath Patient had a prolonged hospitalization please look at my last progress note for detail Patient required hospitalization for acute hypoxic respiratory failure requiring ICU admission, requiring IV diuresis, requiring Levophed for cardiogenic shock, patient had a prolonged hospital course. She was diuresed over 13 L, 7 L net negative, weaned off pressors, managed on midodrine, moved to cardiac stepdown unit, required up to Lasix 40 IV every 8 hours in addition to metolazone overall her condition improved. On discharge she will be kept on midodrine, Lasix 40 IV twice daily with potassium replacement therapy with a close follow-up with cardiology as outpatient for recheck creatinine, recheck potassium, monitor diuresis. For patient's severe tricuspid valve regurg, likely etiology behind her acute hypoxic respiratory failure, recurrent CHF exacerbations, shock, patient does not want any surgical intervention Hospitalization was complicated by UTI discharged on p.o. antibiotics Postpolio syndrome, she gets around with the motorized scooter I had a detailed discussion with patient throughout his hospitalization about her tricuspid valve regurgitation, recurrent fluid overload, hypotension. Patient reported to me multiple times that she does not want to keep prolonging things, she wants to emphasize the quality of life, her quality of life has decreased because of her postpolio syndrome, and her diminished lower extremity strength, now with her shortness of breath she does not want to have aggressive interventions done, was a DNR/DNI as per her wishes. We discussed the possibility of hospice, however patient has declined Physical Exam Const: COMMON NORMALS: no acute distress and patient oriented x3 Resp: COMMON NORMALS: normal respiratory effort, No retractions, No use of accessory muscles and clear to auscultation bilaterally AUSCULTATION: clear to auscultation bilaterally Cardio: COMMON NORMALS: regular rate, regular rhythm, S1 normal heart sound present and S2 normal heart sound present RATE: regular rate RHYTHM: regular rhythm HEART SOUNDS: S1 normal heart sound present and S2 normal heart sound present GI: COMMON NORMALS: Normal to inspection, nondistended, normoactive bowel sounds present and non-tender Extremity: COMMON NORMALS: no pedal edema Neuro: COMMON NORMALS: patient oriented x3 Psych: COMMON NORMALS: mental status grossly normal Urinary Catheter Management: Soto: Cath Placed During This Visit: no Reason for Continuing Indwelling Catheter: Other Discharge Data Studies Completed and Pending Completed Studies During Hospitalization Category Date Time Status CXRP [XR chest 1V portable [id number]] Routine Exams 08/11/24 17:24 Completed XR chest 1V portable [id number] Stat Exams 08/10/24 14:02 [place] [id number] Routine Ultrasound 08/12/24 15:54 Completed CV. echo complete* [id number] Routine Ultrasound 08/11/24 19:35 Completed US renal BI* [id number] Routine Ultrasound 08/12/24 15:50 Completed Pending at discharge Category Date Time Status Complete Blood Count w/Auto AM LABS Lab 08/17/24 04:00 Ordered Comprehensive Metabolic Panel AM LABS Lab 08/17/24 04:00 Ordered Magnesium AM LABS Lab 08/17/24 04:00 Ordered NT Pro B Type Natriuretic Pept QAM Lab 08/17/24 06:00 Ordered Phosphorus AM LABS Lab 08/17/24 04:00 Ordered Radiology Impressions Chest X-Ray 08/11/24 17:24 IMPRESSION: 1. Right upper extremity PICC line with tip in the superior vena cava. No complication evident. 2. Cardiomegaly with pulmonary vascular congestion. Renal Ultrasound 08/12/24 15:50 IMPRESSION: 1. No obstructing urinary stones. No hydronephrosis on either side. 2. Mild ascites. Venous Duplex 08/12/24 15:54 IMPRESSION: No DVT. Laboratory Results WBC 5.57 10^3/uL (3.29-11.43) 08/16/24 03:49 RBC 4.32 10^6/uL (3.85-5.65) 08/16/24 03:49 Hgb 12.20 g/dL (11.27-16.99) 08/16/24 03:49 Hct 38.7 % (36-47) 08/16/24 03:49 MCV 89.6 fl (85-98) 08/16/24 03:49 MCH 28.2 pg (27-33) 08/16/24 03:49 MCHC 31.5 g/dL (30-55) 08/16/24 03:49 RDW 17.1 % (12.1-15.1) H 08/16/24 03:49 Plt Count 108 10^3/cmm (157-399) L 08/16/24 03:49 MPV 11.4 fL (7.4-10.4) H 08/16/24 03:49 Neut % (Auto) 75.8 % 08/16/24 03:49 Lymph % (Auto) 8.6 % 08/16/24 03:49 [place] % (Auto) 14.2 % 08/16/24 03:49 Eos % (Auto) 0.5 % 08/16/24 03:49 Baso % (Auto) 0.4 % 08/16/24 03:49 Neut # (Auto) 4.22 10^3/uL (1.8-7.7) 08/16/24 03:49 Lymph # (Auto) 0.5 10^3/uL (0.8-4.8) L 08/16/24 03:49 [place] # (Auto) 0.8 10^3/uL (0.2-0.9) 08/16/24 03:49 Eos # (Auto) 0.0 10^3/uL (0.0-0.8) 08/16/24 03:49 Baso # (Auto) 0.0 10^3/uL (0.0-0.1) 08/16/24 03:49 Nucleated RBC % (auto) 0 % 08/16/24 03:49 Nucleated RBCs # 0.0 /100WBC 08/16/24 03:49 Sodium 142 mmol/L (136-145) 08/16/24 03:49 Potassium 3.7 mmol/L (3.5-5.1) 08/16/24 03:49 Chloride 92 mmol/L (98-107) L 08/16/24 03:49 Carbon Dioxide 39 mmol/L (22-29) H 08/16/24 03:49 Anion Gap 14.7 (5-19) 08/16/24 03:49 BUN 35 mg/dL (8-23) H 08/16/24 03:49 Creatinine 0.6 mg/dL (0.5-0.9) 08/16/24 03:49 GFR Calculation Not Reportable 08/16/24 03:49 Glucose 74 mg/dL (65-115) 08/16/24 03:49 POC Glucose 82 mg/dL (70-110) 08/16/24 06:11 Calculated Osmolality 301 mOsm/kg (285-295) H 08/16/24 03:49 Lactic Acid 1.9 mmol/L (0.5-2.2) 08/10/24 14:44 Lactate 0.8 mmol/L (0.5-2.2) 08/14/24 02:25 Calcium 9.8 mg/dL (8.5-10.5) 08/16/24 03:49 Phosphorus 4.1 mg/dL (2.5-4.5) 08/16/24 03:49 Magnesium 1.2 mg/dL (1.7-2.3) L 08/16/24 03:49 Total Bilirubin 1.2 mg/dL (0.15-1.2) 08/16/24 03:49 AST 19 U/L (0-32) 08/16/24 03:49 ALT 15 U/L (0-33) 08/16/24 03:49 Alkaline Phosphatase 120 U/L (35-105) H 08/16/24 03:49 Troponin T 5th Gen ng/L 52 ng/L (0-10) H 08/11/24 04:21 Troponin T Baseline 55 ng/L (0-10) H 08/10/24 14:44 Troponin T 120 Minute 50.09 ng/L (0-10) H 08/10/24 18:03 Delta Troponin T -4.91 ABS# (0-10) L 08/10/24 18:03 Troponin T Hi Sens 6Hr 49.64 ng/L (0-10) H 08/10/24 20:52 Troponin T Hi Sens 6Hr Delta -5.36 ng/L (0-12) L 08/10/24 20:52 C-Reactive Protein 86.4 mg/L (0.0-4.9) H 08/14/24 02:25 NT-Pro-B Natriuret Pep 57633 pg/mL (0-450) H 08/16/24 03:49 Total Protein 6.2 g/dL (6.6-8.7) L 08/16/24 03:49 Albumin 4.4 g/dL (3.5-5.2) 08/16/24 03:49 Globulin 1.8 g/dL (1.3-4.6) 08/16/24 03:49 Procalcitonin 0.46 ng/mL (0-0.5) 08/14/24 02:25 TSH 9.76 uIU/mL (0.27-4.20) H 08/11/24 11:40 Free T4 1.06 ng/dL (0.82-1.77) 08/11/24 11:40 Free T3 1.1 PG/ML (2.0-4.4) L 08/11/24 11:40 Urine Color Yellow (Yellow) 08/11/24 16:45 Urine Appearance Cloudy (CLEAR) A 08/11/24 16:45 Urine pH 6.0 (5-7) 08/11/24 16:45 Ur Specific Clark 1.015 (1.005-1.030) 08/11/24 16:45 Urine Protein 3+ (Negative) A 08/11/24 16:45 Urine Glucose (UA) Negative (Normal) 08/11/24 16:45 Urine Ketones Trace (Negative) 08/11/24 16:45 Urine Blood 3+ (Negative) A 08/11/24 16:45 Urine Nitrate Negative (Negative) 08/11/24 16:45 Urine Bilirubin Negative (Negative) 08/11/24 16:45 Urine Urobilinogen 1.0 mg/dL (Negative) 08/11/24 16:45 Ur Leukocyte Esterase 1+ (Negative) A 08/11/24 16:45 Urine RBC >100 /hpf (0-2) H 08/11/24 16:45 Urine WBC 21-50 /hpf (0-5) H 08/11/24 16:45 Ur Squamous Epith Cells 0-5 /hpf (0-5) 08/11/24 16:45 Amorphous Sediment Not Reportable 08/11/24 16:45 Urine Bacteria None seen /hpf (NONE) 08/11/24 16:45 Hyaline Casts 33.90 /lpf 08/11/24 16:45 Coronavirus (PCR) Negative (Negative) 08/10/24 17:17 Influenza A (PCR) Negative (Negative) 08/10/24 17:17 Influenza Type B (PCR) Negative (Negative) 08/10/24 17:17 RSV (PCR) Negative (Negative) 08/10/24 17:17 Vitals Last Vital Signs Temp 97.9 F 08/16/24 10:47 Pulse 73 08/16/24 10:47 Resp 24 H 08/16/24 10:47 BP 114/54 08/16/24 10:47 Pulse Ox 96 08/16/24 10:47 O2 Del Method Nasal Cannula 08/16/24 10:47 O2 Flow Rate 3 08/16/24 10:40 Discharge Plan Discharge Patient Disposition: Home Condition: Stable Prescriptions: New midodrine 5 mg Tablet 10 mg PO Q8H 30 Days Qty: 180 0RF aspirin 81 mg Tablet,Delayed Release (Dr/Ec) 81 mg PO DAILY 30 Days Qty: 30 0RF tramadol 50 mg Tablet 50 mg PO Q8H PRN (Reason: Moderate Pain) 7 Days Qty: 21 0RF potassium chloride [Klor-Con M20] 20 mEq Tablet,Er Particles/Crystals 40 meq PO DAILY 30 Days Qty: 30 0RF magnesium L-lactate 84 mg tablet extended release 84 mg PO BID 30 Days Qty: 60 0RF levofloxacin 750 mg tablet 750 mg PO DAILY 5 Days Qty: 5 0RF Continued levothyroxine 88 mcg/mL solution 88 mcg PO DAILY atorvastatin 40 mg tablet 40 mg PO QPM metformin 500 mg tablet 500 mg PO BID acetaminophen [Tylenol] 325 mg Tablet 325 mg PO QID PRN (Reason: pain or fever) ondansetron HCl 4 mg Tablet 4 mg PO Q6H PRN (Reason: Nausea And Vomiting) cyanocobalamin (vitamin B-12) [Vitamin B-12] 250 mcg Tablet 250 mcg PO QAM magnesium hydroxide [Milk of Magnesia] 400 mg/5 mL Suspension 30 ml PO DAILY PRN (Reason: Constipation) bisacodyl 10 mg Suppository [address] DAILY PRN (Reason: constipation ) pantoprazole 40 mg tablet,delayed release (DR/EC) 40 mg PO DAILY ferrous sulfate 325 mg (65 mg iron) Tablet 325 mg PO BID Fleet Enema 19-7 gram/118 mL Enema [address] DAILY PRN (Reason: Constipation) Culturelle 10 billion cell Capsule 1 cap PO DAILY PRN (Reason: when on antibiotics) camphor-menthol 0.2-3.5 % Gel 1 applic TOPICAL TID PRN (Reason: MUSCLE SPASM ) Rx Instructions: aPPLY TO NECK rub in gently and completely Changed furosemide 40 mg tablet 40 mg PO BID 30 Days Qty: 60 0RF Discontinued magnesium oxide [MagOx] 400 mg (241.3 mg magnesium) tablet 400 mg PO DAILY irbesartan-hydrochlorothiazide 300-12.5 mg tablet 1 tab PO DAILY Qty: 90 3RF isosorbide mononitrate 120 mg tablet extended release 24 hr 120 mg PO DAILY Qty: 90 3RF hydralazine 25 mg tablet 25 mg PO TID Qty: 270 3RF aspirin [Vonnie Aspirin] 325 mg Tablet 325 mg PO DAILY magnesium glycinate 100 mg Tablet 400 mg PO DAILY Discharge Orders: Discharge Order (Routine); Ordered 08/16/24 Ordered By: Slim Chapa Other Ambulatory Orders: DME: Oxygen (Order) Location: None Selected Ordered By: Slim Chapa Referrals: Gail Mccullough NP [Nurse Practitioner] - 08/27/24 3:30 pm Ximena Carpenter FNP [Primary Care Provider] - 1-3 days (Patient will need to fill out new patient paperwork, she has not been to this provider in three years. Once paperwork is filled out, please call office to make a follow up appt. 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 furnace loader after follow up appt ) Discharge Diet: Cardiac Discharge Activity: Resume usual activity Patient Instructions: Diabetes and Diet, Potassium Chloride (By mouth), Aspirin (By mouth), Tramadol (By mouth), Midodrine (By mouth), Levofloxacin (By mouth), Magnesium (By mouth), Hematuria - Female, Urinary Tract Infection in Women (DC), Sepsis (DC), Hypoxia (GEN), Tricuspid Regurgitation (DC), Acute Respiratory Failure (ED), Opioid Safety Activity Restrictions/Additional Instructions: - See cardiology in a week -Please limit fluid intake to 1 to 1.5 L of fluid a day -Please have your primary care provider recheck your kidney function on Tuesday -Please use tramadol sparingly for pain, for osteoarthritis pain, do not drive or operate machinery or drink while taking medication Discharge Attestations Time Spent in Discharge Care*: greater than 30 min Quality Metrics Clinical Quality Measures [ No reported AMI, CVA or VTE this stay] Coding Level of Care Code 97128 Total time (in minutes) for Discharge: 45 Diagnoses CHF exacerbation I50.9 Heart failure type: unspecified 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
[2024-08-16 11:32] LABS: Glucose Point of Care 110 mg/dL (70-110)
--- NOTE | 2024-08-16 11:53 | PC.NURSE ---
Removed PICC line per Dr Chapa. Line was intact and patient tolerated well. No s/s of bleeding or hematoma formation observed.
--- NOTE | 2024-08-16 14:28 | PC.NURSE ---
Patient discharged to [facility] today. Report called to [facility] [place]. Patient dressed and placed in wheelchair. Daughter to provided transportation.
== END 2024-08-16 14:38 | disposition skilled nursing facility (03) | DRG 291 ==
LOC: ER 19:44 → ICU 21:19 → CSU 08-13 17:29
PROVIDERS: Emergency Medicine; Admitting Provider Internal Medicine; Emergency Provider Physician Assistant; PCP Nurse Practitioner Family; Visit Provider Family Medicine
DX: I11.0 Hypertensive heart disease with heart failure (principal); I50.33 Acute on chronic diastolic (congestive) heart failure; J96.01 Acute respiratory failure with hypoxia; R57.0 Cardiogenic shock; N39.0 Urinary tract infection, site not specified; I07.1 Rheumatic tricuspid insufficiency; E11.9 Type 2 diabetes mellitus without complications; R31.9 Hematuria, unspecified; R01.1 Cardiac murmur, unspecified; E78.5 Hyperlipidemia, unspecified; R00.1 Bradycardia, unspecified; Z66 Do not resuscitate; I95.2 Hypotension due to drugs; T46.5X5A Adverse effect of other antihypertensive drugs, initial encounter; Z79.82 Long term (current) use of aspirin; Z79.84 Long term (current) use of oral hypoglycemic drugs; Z86.12 Personal history of poliomyelitis
CPT/HCPCS: 36415; 36416; 36573; 36592; 71045; 76770; 80048; 80053; 81001; 82962; 83605; 83735; 83880; 84100; 84145; 84439; 84443; 84481; 84484; 85025; 86140; 87040; 87086; 87637; 93005; 93306; 93970; 94760; 96372; 96376; 99285; G0378; J0696; J1650; J1815; J1940; J2185; J3475; P9046

== ENCOUNTER 2025-02-05 13:33 | Inpatient (IN) | payer MEDICARE, MEDICAID, SELFPAY ==
[2025-02-05] VITALS (130 sets, daily range): BP systolic 67–104; BP diastolic 46–79; PULSE 56–87; RESP 15–31; TEMP 36.5–37.3; O2SAT 87–100; BMI 21.8
--- NOTE | 2025-02-05 13:34 | XRR_ITS ---
PROCEDURE INFORMATION: Exam: XR Chest Exam date and time: 02/05/2025 1:36 PM Age: 79 years old Clinical indication: Shortness of breath; Additional info: SOB TECHNIQUE: Imaging protocol: Radiologic exam of the chest. Views: 1 view. COMPARISON: CR (CHEST, ) 08/11/2024 5:58 PM FINDINGS: Lungs: Small to moderate right pleural effusion with overlying lung compression. Possible trace left pleural effusion and/or basilar atelectasis. Pleural spaces: No focal consolidation. Heart/Mediastinum: The cardiomediastinal silhouette is stable and mildly enlarged. Vasculature: Calcifications of the aortic arch. Bones/joints: Unremarkable. XR/XR chest 1V portable [id number] IMPRESSION: 1. Small to moderate right and possible trace left pleural effusions with overlying lung compression. 2. Stable cardiomegaly.
--- NOTE | 2025-02-05 13:35 | ECG_ITS ---
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 Measurements Intervals Silex Rate: 75 P: 0 AK: 0 QRS: 2 QRSD: 168 T: 226 QT: 416 QTc: 466 Interpretive Statements UNCERTAIN REGULAR RHYTHM RIGHT BUNDLE BRANCH BLOCK [120+ ms QRS DURATION, UPRIGHT V1, 40+ ms S IN I/aVL/V4/V5/V6] MODERATE T-WAVE ABNORMALITY, CONSIDER ANTEROLATERAL ISCHEMIA [-0.1+ mV T-WAVE IN V3-V6] Compared to ECG 08/12/2024 14:29:53 No significant changes Electronically Signed On 02-07-2025 09:01:38 CDT by Walter Hewitt M.D. [email or web address]
--- OUTSIDE RECORDS SUMMARY | 2025-02-05 13:44 | XMS_ITS | Patient Health Record ---
Author Organization [facility] Address [address] [place] [address] Care Team Providers Care Director Process Engineering Name Role Phone Regan Kaur Primary Care Provider Kevin Boone Unavailable [phone] Mekhi Candelario Unavailable [phone] Allergies No Known Allergies Reason For Referral Reason carotid stenosis - O [facility] CTA head/neck 04/17/24: less than 50% bilateral ICA stenosis, 50% right CCA stenosis, severe stenosis innominate origin, severe stenosis left CCA, 3 mm anterior communicating artery aneurysm Diagnosis 1 Carotid stenosis, bi lateral (I65.23) Referred Organization [facility] Referred Provider Mekhi Candelario Referred Address [address], [place],[address], Referred Provider Specialty Vascular Ramón krystyna General Notes Elham Godfrey 04/18/20 10:28:26 AM >[facility] [place] 04/19/2024 09:57:00 AM >Called and requested report and powershare images. Pending report and imaging, Elham Godfrey 04/19/2024 10:33:01 AM >Please schedule with Dr. Finnegan or Epifanio Neal Lisa 04/19/2024 10:33:43 AM [facility] 04/23/[facility]24 01:49:48 PM >Please schedule with next available vascular surgeon, Eloisa Sky 04/23/2024 02:25:28 PM >Called facility that patient is in and they will get with her daughter to have her call and set up appointment, Eloisa Sky 04/24/2024 10:15:56 AM >Appointment scheduled on 05.10 @ 1:30 Referral Priority Routine Medications Medication SIG (Take, Route, Frequency, Duration) Notes Start Date End Date Status Bisacodyl 10 MG 1 suppository as nee ded Rectal as needed Active hydrALAZINE HCl 25 MG 1 tablet with food Orally Three times a day for HTN Active Atorvastatin Calcium 40 MG 1 tablet Oral ly Once a day Active Isosorbide Mononitrate ER 120 MG 1 tablet in the morning Orally Once a day Active Vitamin B12 Active Tylenol 325 MG 1 tablet as needed O rally every 6 hrs Active Culturelle - as directed Orally Active Milk of Magnesia 400 MG/5ML 5 mL at leas t 4 hours between doses as needed Orally Once a day as needed Active Ferrous Sulfate 325 (65 Fe) MG 1 tablet Orally Twice a day Active Biofreeze Active Irbesartan-hydroCHLOROthiaz jonny 150-12.5 MG 1 tablet Orally Once a day Active Zofran Active Aspirin 325 MG 1 tablet Orally Once a day Active Magnesium Glycinate Active Magnesium 400 MG 1 tablet Orally Four times a day Active Levothyroxine Sodium 112 MCG 1 tablet in the morning on an empty stomach Orally Once a day Active Pantoprazole Sodium 40 MG 1 tablet 1/2 t o 1 hour before morning meal Orally Once a day Active Lasix 40 MG 1 tablet Orally Once a day Active Social History Tobacco Use: Social History Observation Description Date Details (start date - stop date) Current Smoker NA - NA Tobacco Control (Standard) Question Answer Notes Tobacco use: Current smoker How often do you smoke cigarettes? Every day How many cigarettes a day do you smoke? 6-10 Problems Problem Type SNOMED Code ICD Code Onset Dates Problem Status W/U Status Risk Notes Problem [id number] Carotid stenosis, bilateral (I65.23) Active confirmed Vital Signs Heart Rate 83 /min 05/10/2024 Temperature 97.8 degrees Fahrenheit 05/10/2024 Oximetry 92 % 05/10/2024 Blood pressure diastolic 50 mm Hg 05/10/2024 Weight-kg 53.07 kg 05/10/2024 Blood pressure systolic 70 mm Hg 05/10/2024 Weight 117 lbs 05/10/2024 Encounters Encounter Location Date Provider Diagnosis [facility] [address] [place] [address] 04/23/2024 [facility] [address] [place] [address] 05/10/2024 Kevin Finnegan Carotid stenosis, bilateral I65.23 Assessments Encounter Date Diagnosis (ICD Code) Assessment Notes Treatment Notes Treatment Clinical Notes Section Notes 05/10/2024 Carotid stenosis, bilateral (ICD-10 - I65.23) 78-year-old carolyn harper who is currently a [facility] patient and is minimally ambulatory due to weakness and history of polio who 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 Patient does not have any focal findings to suggest any TIA or stroke. Patient also does not have any effort-induced symptoms on the right arm. She also does not have any wounds. Interpret this as being asymptomatic disease. Therefore, I do not recommend any intervention for this at the present time. We will continue with surveillance. She is continue her antiplatelet therapy. She is to continue her smoking cessation efforts. We will see her in 6 months with a repeat CTA. 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 We will do the CT in order to surveilled this. Plan Of Treatment Future Test Test Name Order Date Blood Urea Nitrogen (BUN) [id number] 10/18/19 25 Creatinine (B) [id number] 10/17/2024 CTA Head w/ + w/o Contrast-[id number] 025 CTA Neck w/ + w/o Contrast-[id number] 025 Insurance Providers Payer Name Payer Address Payer Phone Subscriber Number Group Number Insured Name Patient Relationship to Insured Coverage Start Date Coverage End Date [place] Medicare [address] [place] [id number] Natalie Marks Self - patient is the insured [place] Medicaid [address] [place] [address] [id number] Natalie Marks Self - patient is the insured Medical (General) History Medical History History ICD Code Hypertension Type 2 Diabetes Arthritis Surgical History Surgery Date(Month/Year) Tonsilectomy x3 L foot surgery
--- NOTE | 2025-02-05 14:18 | W.ED.GENADLT ---
HPI - General Adult General: Chief complaint: General Medical Stated complaint: [place] sent, fluid build up Time Seen by Provider: 02/05/25 13:54 Source: patient Mode of arrival: ambulatory Limitations: no limitations History of Present Illness: 79-year-old female with history of diabetes also congestive heart failure states she is on Lasix at home has been having increased swelling in her ankles. States he also been having some increased shortness of breath with exertion she denies any chest pain denies any cough denies any fevers. Associated symptoms: Reports dyspnea; Deny chest pain, headache(s), nausea, rash or vomiting Related Data Home Medications ?Medication ?Instructions ?Recorded ?Confirmed Lactobacillus rhamnosus GG 10 1 cap PO DAILY PRN when on 08/11/24 02/05/25 billion cell capsule (Culturelle) antibiotics acetaminophen 325 mg tablet 650 mg PO QID PRN pain or fever 08/11/24 02/05/25 (Tylenol) bisacodyl 10 mg rectal suppository 10 mg CO DAILY PRN constipation 08/11/24 02/05/25 camphor-menthol 0.2 %-3.5 % 1 applic topical TID PRN MUSCLE 08/11/24 02/05/25 topical gel SPASM magnesium hydroxide 400 mg/5 mL 30 ml PO DAILY PRN Constipation 08/11/24 02/05/25 oral suspension (Milk of Magnesia) ondansetron HCl 4 mg tablet 4 mg PO Q6H PRN Nausea And Vomiting 08/11/24 02/05/25 pantoprazole 40 mg tablet,delayed 40 mg PO DAILY 08/11/24 02/05/25 release sodium phosphates 19 gram-7 118 ml CO DAILY PRN Constipation 08/11/24 02/05/25 gram/118 mL enema (Fleet Enema) aspirin 81 mg tablet,delayed 81 mg PO DAILY 02/05/25 02/05/25 release bumetanide 2 mg tablet 2 mg PO BID 02/05/25 02/05/25 insulin aspart U-100 100 unit/mL See Rx Instructions .Route .COMPLEX 02/05/25 02/05/25 (3 mL) subcutaneous pen insulin degludec 100 unit/mL (3 20 unit SUBCUT .COMPLEX 02/05/25 02/05/25 mL) subcutaneous pen levothyroxine 100 mcg tablet 100 mcg PO DAILY 02/05/25 02/05/25 midodrine 10 mg tablet 10 mg PO Q8H 02/05/25 02/05/25 potassium chloride 20 mEq 20 meq PO DAILY 02/05/25 02/05/25 tablet,extended release tramadol 50 mg tablet 50 mg PO Q8H PRN Moderate Pain 02/05/25 02/05/25 (Scale Score 5-6) Allergies Allergy/AdvReac Type Severity Reaction Status Date / Time propoxyphene (From AdvReac Unknown Verified 08/10/24 14:14 Darvocet-N) Review of Systems Const: Denies: fever(s), chills, body aches or change in appetite ENMT: Denies: throat pain or dental pain Card: Denies: chest pain Resp: Reports: dyspnea GI: Denies: abdominal pain, nausea, vomiting or diarrhea Musc: Reports: extremity swelling; Denies: neck pain or back pain Skin/Breast: Denies: rash Neuro: Denies: headache(s) PFSH ED PFSH: Medical History HTN (hypertension) Carotid stenosis Tricuspid regurgitation Diabetes Hypothyroidism [place] Surgical History Hx of cataract surgery Hx of hernia repair Hx of section Family History Other Diabetes Social History Alcohol intake: current Alcohol intake frequency: other Substance/Drug Use: never Physical Exam Const: COMMON NORMALS: patient oriented x3 HENMT: COMMON NORMALS: normocephalic and atraumatic HEAD & SCALP: normocephalic and atraumatic Eye: COMMON NORMALS: conjunctivae normal CONJUNCTIVA: Yes conjunctivae normal Neck/C-Spine: COMMON NORMALS: full ROM and supple Chest: COMMONS NORMALS: normal inspection of the chest Resp: COMMON NORMALS: normal respiratory effort, No retractions, No use of accessory muscles and clear to auscultation bilaterally AUSCULTATION: clear to auscultation bilaterally Cardio: COMMON NORMALS: regular rate, regular rhythm and No murmurs present (Cardio) RATE: regular rate RHYTHM: regular rhythm GI: COMMON NORMALS: Normal to inspection, nondistended, normoactive bowel sounds present, Soft to palpation, non-tender and no masses PALPATION: Yes Soft to palpation Extremity: COMMON NORMALS: full ROM NARRATIVE EXTREMITY EXAM: 2+ edema ble Neuro: COMMON NORMALS: patient oriented x3, moves all extremities and no focal motor deficits Psych: COMMON NORMALS: mental status grossly normal, Normal thought process present and cooperative THOUGHT PROCESS: Normal thought process present Skin: COMMON NORMALS: no rashes or lesions noted and no wounds GENERAL SKIN EXAM: no rashes or lesions noted Course Vital Signs: Vital signs: Vital Signs Temperature 97.7 F 02/05/25 13:43 Pulse Rate 62 02/05/25 13:43 Respiratory Rate 18 02/05/25 13:43 Blood Pressure 97/60 02/05/25 14:51 Pulse Oximetry 90 02/05/25 15:00 Oxygen Delivery Me thod Room Air 02/05/25 15:00 MDM - General Adult Medical Decision Making Patient presents here with shortness of breath she does have exertional dyspnea is requiring [address] does show pleural effusion likely CHF will give her dose antibiotics will did give her Lasix here spoke to hospitalist will admit. No signs of acute coronary syndrome no chest pain. Medical Records I reviewed the patient's medical records. Lab Data I reviewed the patient's lab results. 02/05/25 14:20 02/05/25 14:20 Radiology Impressions Chest X-Ray 02/05/25 13:34 IMPRESSION: 1. Small to moderate right and possible trace left pleural effusions with overlying lung compression. 2. Stable cardiomegaly. Chest CTA 02/05/25 14:59 IMPRESSION: 1. No acute central or lobar pulmonary embolism. Mild dilatation of the main pulmonary artery which is nonspecific but can be seen in the setting of pulmonary arterial hypertension. 2. Cardiomegaly with regurgitation of contrast into the hepatic IVC suggesting some degree of right heart failure. Echocardiographic correlation is advised. 3. Moderate right and small left pleural effusion with overlying compressive atelectasis. Superimposed infection is not entirely excluded. 4. Large sliding hiatal hernia with distal esophageal and gastric wall thickening suggesting esophagitis/gastritis. Underlying primary esophageal malignancy is not excluded. Recommend clinical correlation and direct visualization as clinically indicated. 5. Severe aortic and mitral valvular calcifications which predisposes to valvular stenosis. Laboratory Results WBC 7.19 10^3/uL (3.29-11.43) 02/05/25 14:20 RBC 4.84 10^6/uL (3.85-5.65) 02/05/25 14:20 Hgb 13.40 g/dL (11.27-16.99) 02/05/25 14:20 Hct 43.0 % (36-47) 02/05/25 14:20 MCV 88.8 fl (85-98) 02/05/25 14:20 MCH 27.7 pg (27-33) 02/05/25 14:20 MCHC 31.2 g/dL (30-55) 02/05/25 14:20 RDW 15.9 % (12.1-15.1) H 02/05/25 14:20 Plt Count 252 10^3/cmm (157-399) 02/05/25 14:20 MPV 10.7 fL (7.4-10.4) H 02/05/25 14:20 Neut % (Auto) 69.0 % 02/05/25 14:20 Lymph % (Auto) 16.3 % 02/05/25 14:20 [place] % (Auto) 12.2 % 02/05/25 14:20 Eos % (Auto) 1.1 % 02/05/25 14:20 Baso % (Auto) 0.8 % 02/05/25 14:20 Neut # (Auto) 4.96 10^3/uL (1.8-7.7) 02/05/25 14:20 Lymph # (Auto) 1.2 10^3/uL (0.8-4.8) 02/05/25 14:20 [place] # (Auto) 0.9 10^3/uL (0.2-0.9) 02/05/25 14:20 Eos # (Auto) 0.1 10^3/uL (0.0-0.8) 02/05/25 14:20 Baso # (Auto) 0.1 10^3/uL (0.0-0.1) 02/05/25 14:20 Nucleated RBC % (auto) 0 % 02/05/25 14:20 Nucleated RBCs # 0.0 /100WBC 02/05/25 14:20 Sodium 132 mmol/L (136-145) L 02/05/25 14:20 Potassium 4.8 mmol/L (3.5-5.1) 02/05/25 14:20 Chloride 95 mmol/L (98-107) L 02/05/25 14:20 Carbon Dioxide 25 mmol/L (22-29) 02/05/25 14:20 Anion Gap 16.8 (5-19) 02/05/25 14:20 BUN 27 mg/dL (8-23) H 02/05/25 14:20 Creatinine 0.7 mg/dL (0.5-0.9) 02/05/25 14:20 GFR Calculation Not Reportable 02/05/25 14:20 Glucose 339 mg/dL (65-115) H 02/05/25 14:20 POC Glucose 361 mg/dL (70-110) H 02/05/25 15:00 Calculated Osmolality 292 mOsm/kg (285-295) 02/05/25 14:20 Calcium 8.5 mg/dL (8.5-10.5) 02/05/25 14:20 Total Bilirubin 0.2 mg/dL (0.15-1.2) 02/05/25 14:20 AST 24 U/L (0-32) 02/05/25 14:20 ALT 17 U/L (0-33) 02/05/25 14:20 Alkaline Phosphatase 124 U/L (35-105) H 02/05/25 14:20 Troponin T Baseline 45 ng/L (0-10) H 02/05/25 14:20 NT-Pro-B Natriuret Pep 33185 pg/mL (0-450) H 02/05/25 14:20 Total Protein 5.9 g/dL (6.6-8.7) L 02/05/25 14:20 Albumin 2.7 g/dL (3.5-5.2) L 02/05/25 14:20 Globulin 3.2 g/dL (1.3-4.6) 02/05/25 14:20 All radiology interpretation(s) finalized by discharge EKG Data EKG 1: I personally reviewed and interpreted this EKG as follows: EKG interpretation date: 02/05/25 EKG interpretation time: 14:49 Interpretation: nsr hr [address] [id number] qtc 445 Computer generated interpretation: Chest X-Ray 02/05/25 13:34 IMPRESSION: 1. Small to moderate right and possible trace left pleural effusions with overlying lung compression. 2. Stable cardiomegaly. Chest CTA 02/05/25 14:59 IMPRESSION: 1. No acute central or lobar pulmonary embolism. Mild dilatation of the main pulmonary artery which is nonspecific but can be seen in the setting of pulmonary arterial hypertension. 2. Cardiomegaly with regurgitation of contrast into the hepatic IVC suggesting some degree of right heart failure. Echocardiographic correlation is advised. 3. Moderate right and small left pleural effusion with overlying compressive atelectasis. Superimposed infection is not entirely excluded. 4. Large sliding hiatal hernia with distal esophageal and gastric wall thickening suggesting esophagitis/gastritis. Underlying primary esophageal malignancy is not excluded. Recommend clinical correlation and direct visualization as clinically indicated. 5. Severe aortic and mitral valvular calcifications which predisposes to valvular stenosis. Discharge Plan Discharge Patient Disposition: Admitted As Inpatient Admit Provider: Alba Milton Clinical Impression: Pleural effusion, Acute respiratory failure with hypoxemia Condition: Stable Coding Level of Care Code ED Sql Report Analyst for Lopez Gonzalez
[2025-02-05 14:27] LABS: Hematocrit 43.0 % (36-47); Hemoglobin 13.40 g/dL (11.27-16.99); Mean Corpuscular HGB Conc 31.2 g/dL (30-55); Mean Corpuscular Hemoglobin 27.7 pg (27-33); Mean Corpuscular Volume 88.8 fl (85-98); Nucleated Red Blood Cells % 0 %; Platelet Count 252 10^3/cmm (157-399); Red Blood Count 4.84 10^6/uL (3.85-5.65); White Blood Count 7.19 10^3/uL (3.29-11.43)
[2025-02-05] MEDS: FUROsemide 10 mg/mL SDV 10mL 60 MG IVP (14:43)
[2025-02-05 14:55] LABS: Alanine Aminotransferase 17 U/L (0-33); Albumin Level 2.7 g/dL (3.5-5.2); Alkaline Phosphatase 124 U/L (35-105); Anion Gap 16.8 (5-19); Aspartate Amino Transferase 24 U/L (0-32); Blood Urea Nitrogen 27 mg/dL (8-23); Calcium 8.5 mg/dL (8.5-10.5); Carbon Dioxide 25 mmol/L (22-29); Chloride 95 mmol/L (98-107); Creatinine Clr Calc Pharmacy 48.4794; Globulin 3.2 g/dL (1.3-4.6); Glucose 339 mg/dL (65-115); NT Pro B Type Natriuretic Pept 12392 pg/mL (0-450); Osmolality Calculated 292 mOsm/kg (285-295); Potassium 4.8 mmol/L (3.5-5.1); Sodium 132 mmol/L (136-145); Total Protein 5.9 g/dL (6.6-8.7)
--- NOTE | 2025-02-05 14:59 | CTR_ITS ---
PROCEDURE INFORMATION: Exam: CTA Chest With Contrast Exam date and time: 02/05/2025 3:07 PM Age: 79 years old Clinical indication: Shortness of breath; Additional info: SOB TECHNIQUE: Imaging protocol: Computed tomographic angiography of the chest with contrast. Exam focused on the arteries. 3D rendering (Not supervised by radiologist): MIP and/or 3D reconstructed images were created by the technologist. Radiation optimization: All CT scans at this facility use at least one of these dose optimization techniques: automated exposure control; mA and/or kV adjustment per patient size (includes targeted exams where dose is matched to clinical indication); or iterative reconstruction. Contrast material: OMNI 350; Contrast volume: 80 ml; Contrast route: INTRAVENOUS (IV); COMPARISON: CR XR chest 1V portable [id number] 02/05/2025 1:36 PM RADIATION DOSE METRICS: Total DLP (mGy-cm): 224.56 FINDINGS: Pulmonary arteries: The main pulmonary artery is mildly dilated measuring 3.1 cm. No central or lobar pulmonary embolism. Evaluation of distal segmental and subsegmental pulmonary arteries is limited due to contrast mixing and respiratory motion artifact. Aorta: Moderate aortic and mitral valvular calcifications. Moderate atherosclerosis of the thoracic aorta and great vessels. Veins: Moderate reflux of contrast within the hepatic IVC. Mild dilatation of the azygos vein. Lungs: Bibasilar and dependent ground-glass opacity. Pleural spaces: Moderate right pleural effusion. Small left pleural effusion. No pneumothorax. Heart: Trace pericardial effusion. Mild cardiomegaly. Coronary arteries: Moderate coronary artery calcifications. Esophagus: Large sliding hiatal hernia with distal esophageal and gastric wall thickening. Lymph nodes: Scattered prominent mediastinal lymph nodes none meeting pathological criteria possibly reactive in etiology. Kidneys: Partially visualized right nephrolithiasis and/or vascular calcifications. Bones/joints: Moderate multilevel degenerative disease of the thoracic spine. Chronic superior endplate compression fracture of T8. No definitive acute osseous abnormality. Soft tissues: Mild diffuse body wall edema. CT/CT angio chest PE protcl [id number] IMPRESSION: 1. No acute central or lobar pulmonary embolism. Mild dilatation of the main pulmonary artery which is nonspecific but can be seen in the setting of pulmonary arterial hypertension. 2. Cardiomegaly with regurgitation of contrast into the hepatic IVC suggesting some degree of right heart failure. Echocardiographic correlation is advised. 3. Moderate right and small left pleural effusion with overlying compressive atelectasis. Superimposed infection is not entirely excluded. 4. Large sliding hiatal hernia with distal esophageal and gastric wall thickening suggesting esophagitis/gastritis. Underlying primary esophageal malignancy is not excluded. Recommend clinical correlation and direct visualization as clinically indicated. 5. Severe aortic and mitral valvular calcifications which predisposes to valvular stenosis.
[2025-02-05] MEDS: iohexol 350 mg/mL 500 mL Btl (per mL) IV (15:11)
--- NOTE | 2025-02-05 15:20 | PC.PHAR ---
Pt is resident at [facility]02/05/25 3:20pm
[2025-02-05] MEDS: AZITHROMYCIN ADD-Vantage 500 MG in 0.9% NaCl ADD-Vantage 250 ML 250 MG IV (15:52)
[2025-02-05] MEDS: cefTRIAXone 1,000 mg SDV 1000 MG IVP (15:52)
[2025-02-05] MEDS: insulin regular-human 100 units/1 mL 8 UNIT IVP (15:58)
[2025-02-05 16:15] LABS: Troponin(5th) Baseline 45 ng/L (0-10)
[2025-02-05 17:32] LABS: Troponin 5 2HR 44.16 ng/L (0-10)
--- NOTE | 2025-02-05 17:32 | ECG_ITS ---
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 Measurements Intervals [place] Rate: 74 P: -28 MS: 302 QRS: 6 QRSD: 184 T: 241 QT: 457 QTc: 508 Interpretive Statements SINUS RHYTHM WITH FIRST DEGREE AV BLOCK RIGHT BUNDLE BRANCH BLOCK [120+ ms QRS DURATION, UPRIGHT V1, 40+ ms S IN I/aVL/V4/V5/V6] MODERATE T-WAVE ABNORMALITY, CONSIDER ANTEROLATERAL ISCHEMIA [-0.1+ mV T-WAVE IN V3-V6] MODERATE T-WAVE ABNORMALITY, CONSIDER INFERIOR ISCHEMIA [-0.1+ mV T-WAVE IN II/aVF] Compared to ECG 02/05/2025 14:49:02 First degree AV block now present T-wave abnormality still present Possible ischemia still present Electronically Signed On 02-07-2025 09:31:35 CDT by Walter Hewitt M.D. [email or web address]
[2025-02-05 17:33] LABS: Troponin 5 2HR Delta -0.84 ABS# (0-10)
--- NOTE | 2025-02-05 17:38 | PC.NURSE ---
Patient arrived to ICU at 1720. A&Ox4. V/S WNL
--- NOTE | 2025-02-05 17:41 | USCV_ITS ---
Natalie Marks Age: 79 Gender: F : 1945 Exam Date: 02/05/2025 19:24 Ordering Phys: Alba Milton MD Technologist: ENEIDA Exam Location[place] [facility] [place] Indication: HF DM BP: 104 / 79 HR: 66 Rhythm: Sinus Technical Quality: Adequate MEASUREMENTS (Male / Female) Normal Values 2D ECHO LV Diastolic Diameter PLAX 3.4 cm 4.2 - 5.9 / 3.9 - 5.3 cm IVS Diastolic Thickness 1.7 cm 0.6 - 1.0 / 0.6 - 0.9 cm IVS Systolic Thickness 2.3 cm LVPW Diastolic Thickness 1.8 cm 0.6 - 1.0 / 0.6 - 0.9 cm LVPW Systolic Thickness 2.1 cm LVOT Diameter 1.9 cm LV Ejection Fraction 2D Teich 61.9 % LV Ejection Fraction MOD 4C 70.2 % LV Ejection Fraction MOD 2C 74.7 % LV Ejection Fraction 2C AL 61.9 % LA Diameter 5.4 cm LA Sys Volume AL 115.1 cm cubed LA Sys Volume Index AL 69.7 cm cubed/m squared Aorta at Sinotubular Diameter 2.4 cm IVC Diameter 2.6 cm M-MODE LA Ao Ratio MM 1.9 AV Cusp Separation MM 1.4 cm DOPPLER AV Peak Velocity 156.0 cm/s LVOT Peak Velocity 80.0 cm/s AV Area Cont Eq vti 1.7 cm squared AV Area Cont Eq pk 1.4 cm squared MV Peak Velocity 150.0 cm/s MV Area PHT 1.7 cm squared Mitral E to A Ratio 0.9 TV Peak Velocity 359.5 cm/s TR Peak Velocity 361.0 cm/s TR Peak Gradient 52.1 mmHg TV Peak E Velocity 47.0 cm/s PV Peak Velocity 76.0 cm/s FINDINGS Left Ventricle Left ventricle is normal size. Severe left ventricular hypertrophy. LV systolic function is normal with EF of 70-75%. No regional wall motion abnormalities. Grade 1 diastolic dysfunction Right Ventricle Normal in size and function Right Atrium Dilated Left Atrium Dilated Mitral Valve Severe mitral valve calcification. Mild mitral regurgitation. Aortic Valve Severely thickened and calcified valve. Mild aortic stenosis with aortic valve area 1.66 cm squared and mean gradient of 6 mmHg. Tricuspid Valve Moderate to severe tricuspid regurgitation. RVSP is 60-65mmHg. This is consistent with severe pulmonary hypertension Pulmonic Valve Not well visualized Pericardium Normal Aorta Normal in size IVC Appears to be dilated CONCLUSIONS Severe left ventricular hypertrophy LV systolic function is normal with EF of 70-75% Grade 1 diastolic dysfunction Biatrial dilation Mild mitral regurgitation Mild aortic stenosis Moderate to severe tricuspid regurgitation Severe pulmonary hypertension Compared to prior echocardiogram from 08/2024 no significant change are seen Walter Hewitt MD (Electronically Signed) Final Date: 06 February 2025 08:46 S
--- NOTE | 2025-02-05 17:45 | PM.HP ---
Providers/Chief Complaint Admitting Physician: Alba Milton MD Primary Care Provider: Steve Infante DO Chief Complaint: [place] sent, fluid build up History of Present Illness Natalie Marks is a 79 year old female with past medical history of hypertension, history of polio as a child, palpitations, dyslipidemia, diabetes mellitus, heart failure who presented to the hospital today for shortness of breath. She states that she has been gaining fluid. She states she knew that this was water retention once again as she has had a previous admission 3 months ago at our hospital. He says she felt like a new woman when she left her hospital 3 months ago however she states all her symptoms are returning. She states she would like to be a DNR/DNI. She states if her heart stops she does not want to be resuscitated. Denies a cough. Denies a fever. He is not expectorating any sputum. Her main complaint is worsening shortness of breath and lower extremity edema. She has not been ill lately and denies any ill contacts. Takes Bumex 2 mg twice daily at home. Medications/Allergies Home Medications ?Medication ?Instructions ?Recorded ?Confirmed ?Last Taken ?Type Lactobacillus rhamnosus GG 10 1 cap PO DAILY PRN when on 08/11/24 02/05/25 Unknown History billion cell capsule (Culturelle) antibiotics acetaminophen 325 mg tablet 650 mg PO QID PRN pain or fever 08/11/24 02/05/25 Unknown History (Tylenol) bisacodyl 10 mg rectal suppository 10 mg SC DAILY PRN constipation 08/11/24 02/05/25 Unknown History camphor-menthol 0.2 %-3.5 % 1 applic topical TID PRN MUSCLE 08/11/24 02/05/25 08/09/24 History topical gel SPASM magnesium hydroxide 400 mg/5 mL 30 ml PO DAILY PRN Constipation 08/11/24 02/05/25 Unknown History oral suspension (Milk of Magnesia) ondansetron HCl 4 mg tablet 4 mg PO Q6H PRN Nausea And Vomiting 08/11/24 02/05/25 Unknown History pantoprazole 40 mg tablet,delayed 40 mg PO DAILY 08/11/24 02/05/25 02/05/25 History release sodium phosphates 19 gram-7 118 ml SC DAILY PRN Constipation 08/11/24 02/05/25 Unknown History gram/118 mL enema (Fleet Enema) aspirin 81 mg tablet,delayed 81 mg PO DAILY 02/05/25 02/05/25 02/05/25 History release bumetanide 2 mg tablet 2 mg PO BID 02/05/25 02/05/25 02/05/25 History insulin aspart U-100 100 unit/mL See Rx Instructions .Route .COMPLEX 02/05/25 02/05/25 02/05/25 History (3 mL) subcutaneous pen insulin degludec 100 unit/mL (3 20 unit SUBCUT .COMPLEX 02/05/25 02/05/25 02/04/25 History mL) subcutaneous pen levothyroxine 100 mcg tablet 100 mcg PO DAILY 02/05/25 02/05/25 02/05/25 History midodrine 10 mg tablet 10 mg PO Q8H 02/05/25 02/05/25 02/05/25 History potassium chloride 20 mEq 20 meq PO DAILY 02/05/25 02/05/25 02/05/25 History tablet,extended release tramadol 50 mg tablet 50 mg PO Q8H PRN Moderate Pain 02/05/25 02/05/25 Unknown History (Scale Score 5-6) Allergies Allergy/AdvReac Type Severity Reaction Status Date / Time propoxyphene (From AdvReac Unknown Verified 08/10/24 14:14 Reinaldot-N) PFSH Acute PFSH: Medical History HTN (hypertension) Carotid stenosis Tricuspid regurgitation Diabetes Hypothyroidism Polio Surgical History Hx of cataract surgery Hx of hernia repair Hx of section Family History Other Diabetes Social History Alcohol intake: current Alcohol intake frequency: other Substance/Drug Use: never Vitals/I&O/Wt Last Vital Signs Temp 98.6 F 02/05/25 17:23 Pulse 81 02/05/25 17:23 Resp 31 H 02/05/25 17:23 BP 104/79 02/05/25 16:40 Pulse Ox 96 02/05/25 17:23 O2 Del Method Nasal Cannula 02/05/25 17:19 02/05/25 02/05/25 02/05/25 06:59 14:59 22:59 Intake Total 250 / 250 Balance 250 / 250 Weight last 48 hrs Weight 59.5 kg Weight 57.153 kg Physical Exam Narrative: General: Alert oriented x3, patient seen laying in bed HEENT: Normocephalic, atraumatic, EOMI, breathing 3L NC Cardio: normal s1, s2, no gross murmers, dependent edema present at buttock areas, JVD positive Respiratory: mild crackles at bases, no wheezes GI: Abdomen soft, nontender, nondistended, bowel sounds + Extremities: 2+ edema b/l LE up to knees Data 02/06/25 03:39 02/06/25 03:39 Micro: Microbiology 02/05/25 16:40 Blood Culture - Preliminary Blood SPECIMEN COLLECTED 02/05/25 16:45 Blood Culture - Preliminary Blood SPECIMEN COLLECTED A&P Assessment and plan (1) HTN (hypertension): (2) Tricuspid regurgitation: (3) Diabetes: (4) Pleural effusion: (5) Acute respiratory failure with hypoxemia: (6) Diastolic heart failure: (7) Elevated brain natriuretic peptide (BNP) level: (8) DNR (do not resuscitate): (9) CHF exacerbation: (10) Goals of care, counseling/discussion: (11) Supplemental oxygen dependent: Plan #Acute on chronic diastolic heart failure #Possible pulmonary artery hypertension #Moderate right and left small pleural effusion #Possible pneumonia #Large hiatal hernia #Diabetes mellitus, insulin-dependent ? Patient appears to be in heart failure at this time. She does have dependent edema in buttock areas and bilateral lower extremity edema up to knees 1-2+. She is quite frail to begin with. Is on midodrine at home and Bumex 2 mg twice daily. She has received 60 IV Lasix in the ER. Does seem to have fine crackles at bases at this time. Although CTA chest does show questionable pneumonia patient does not have a fever, has not had a fever recently, no leukocytosis, has not been coughing not expectorating any sputum. Clinically does not seem that she may have a pneumonia. Main complaint is shortness of breath with worsening edema. I will treat her for pneumonia with ceftriaxone azithromycin however I believe patient needs to be diuresed at this time. ? Continue ceftriaxone azithromycin, check bacterial antigen strep and Legionella. ? Repeat chest x-ray in a.m. ? We will continue on Lasix 80 IV twice daily given patient's home dose of Bumex 2 mg twice daily ? I will check echocardiogram and repeat to look for right-sided heart failure. Patient does appear to have mild JVD as well. ? EKG does show some nonspecific T wave abnormalities which are similar to her previous EKG from her admission in August. She denies any chest pain at this time. ? Will check lactic acid, TSH ? Check sputum Gram stain culture ? Check blood cultures ? Sliding scale insulin moderate dose intensity ? Hold home Lantus at this time ? Continue levothyroxine ? Continue midodrine 10 mg every 8 hours ? Check BMP twice daily to monitor for electrolyte abnormalities and replete as needed ? Continue aspirin ? Does have severe aortic and mitral calcifications predisposing to valvular stenosis however there is no documented history of aortic stenosis. ? Patient is on 3 L nasal cannula at this time. ? BNP 12,392 which is not too far off from baseline. ? Baseline troponin 45, 2-hour 6-hour troponin pending at this time ?We will admit to ICU ? Had a goals of care discussion with the patient. She states if her heart stops she would like to be let go naturally. She does not want any intervention. She also made a comment that she feels ready and knows her time is near. I told her to be optimistic and we will take care of her to the best of her ability and hopefully she will be able to go home again. DNR/DNI DVT prophylaxis: Heparin SQ twice daily PDMP PDMP Reviewed: Not Reviewed Attestations Medical Necessity Statement*: Greater than 2 minutes in for management of diastolic heart failure with bilateral pleural effusions and possible pneumonia. Diagnoses HTN (hypertension) I10 Nonrheumatic tricuspid valve regurgitation I36.1 Cardiac valve disease etiology: nonrheumatic Diabetes E11.9 Pleural effusion J90 Acute respiratory failure with hypoxemia J96.01 Diastolic heart failure I50.30 Elevated brain natriuretic peptide (BNP) level R79.89 DNR (do not resuscitate) Z66 CHF exacerbation I50.9 Heart failure type: unspecified Goals of care, counseling/discussion Z71.89 Supplemental oxygen dependent Z99.81
[2025-02-05] MEDS: FUROsemide 10 mg/mL SDV 10mL 80 MG IVP (18:01)
[2025-02-05] MEDS: heparin 5,000 unit/mL INJ 1 mL 5000 UNIT SUBCUT (18:01)
[2025-02-05 18:10] LABS: Lactic Sepsis W/Reflex 2.3 mmol/L (0.5-2.2)
[2025-02-05 18:20] LABS: Thyroid Stimulating Hormone 21.87 uIU/mL (0.27-4.20)
[2025-02-05 18:55] LABS: Glucose Urine UA Negative (Normal); Nitrate Urine Negative (Negative); Specific Gravity, Urine 1.022 (1.005-1.030)
[2025-02-05 19:34] LABS: Add Urine Microscopic? YES
[2025-02-05 19:35] LABS: Reflex Lactate Order REFLEX LACTIC ORDERD
[2025-02-05 20:29] LABS: Troponin 5 6HR 44.98 ng/L (0-10)
[2025-02-05 20:31] LABS: Lactic Acid level (Lactate) 1.6 mmol/L (0.5-2.2)
[2025-02-05 20:35] LABS: Troponin 5 6HR Delta -0.02 ng/L (0-12)
--- NOTE | 2025-02-05 21:42 | ECG_ITS ---
[facility] Date: 2025-02-05 Pat Name: Natalie Marks Department: Room: ICU10 Gender: Female [employer] Burner: YELENA: 1945 Requested By: Heriberto Velarde Order Number: [id number] Dewayne MD: Walter Hewitt M.D. Measurements Intervals [place] Rate: 64 P: 58 OR: 186 QRS: 42 QRSD: 165 T: 222 QT: 485 QTc: 504 Interpretive Statements SINUS RHYTHM RIGHT BUNDLE BRANCH BLOCK [120+ ms QRS DURATION, UPRIGHT V1, 40+ ms S IN I/aVL/V4/V5/V6] MODERATE T-WAVE ABNORMALITY, CONSIDER ANTEROLATERAL ISCHEMIA [-0.1+ mV T-WAVE IN V3-V6] MODERATE T-WAVE ABNORMALITY, CONSIDER INFERIOR ISCHEMIA [-0.1+ mV T-WAVE IN II/aVF] Compared to ECG 02/05/2025 17:32:20 First degree AV block no longer present T-wave abnormality still present Possible ischemia still present Electronically Signed On 02-07-2025 09:31:23 CDT by Walter Hewitt M.D. [email or web address]
--- NOTE | 2025-02-05 21:43 | PC.NURSE ---
Provider notified of patients repeated low blood pressure readings. Gave orders for 500ml NS bolus one time and to hold morning dose of furosemide until at least 0900 on 02/06. See MAR
[2025-02-06] VITALS (633 sets, daily range): BP systolic 60–119; BP diastolic 19–78; PULSE 52–82; RESP 10–32; TEMP 36.9–37.1; O2SAT 82–100
--- NOTE | 2025-02-06 00:45 | PC.NURSE ---
Addendum entered by KEKE Chávez 02/06/25 01:54: Provider called unit back and gave verbal orders to begin Norepinephrine per protocol. She then came to bedside to assess patient. Gave verbal orders to discontinue Midodrine, Furosemide, Ceftriaxone, and IV Azithromycin. Gave orders to begin 1500mg IV Vancomycin, then pharmacy to dose, 1gram IV Cefepime now, to continue to 1g Cefepime q12h, and change 250mg IV Azithromycin to PO. Orders placed. See MAR Original Note: Attempted to notify provider of patients unresponsiveness to bolus and continued hypotension. Nursing staff performed [facility] hemodynamic testing that resulted in showing patient is not fluid responsive. Echocardiogram report still not available at this time. Awaiting call back from provider
[2025-02-06] MEDS: norepinephrine 4 MG/250 ML BAG 7.5 MG IV (01:15)
[2025-02-06] MEDS: cefepime 1,000 mg SDV 1000 MG IVP ×2 (02:58→13:17)
[2025-02-06 04:14] LABS: Hematocrit 44.9 % (36-47); Hemoglobin 14.10 g/dL (11.27-16.99); Mean Corpuscular HGB Conc 31.4 g/dL (30-55); Mean Corpuscular Hemoglobin 27.4 pg (27-33); Mean Corpuscular Volume 87.4 fl (85-98); Nucleated Red Blood Cells % 0 %; Platelet Count 303 10^3/cmm (157-399); Red Blood Count 5.14 10^6/uL (3.85-5.65); White Blood Count 8.76 10^3/uL (3.29-11.43)
[2025-02-06 04:38] LABS: Alanine Aminotransferase 20 U/L (0-33); Albumin Level 2.4 g/dL (3.5-5.2); Alkaline Phosphatase 128 U/L (35-105); Anion Gap 15.2 (5-19); Aspartate Amino Transferase 27 U/L (0-32); Blood Urea Nitrogen 24 mg/dL (8-23); Calcium 8.3 mg/dL (8.5-10.5); Carbon Dioxide 28 mmol/L (22-29); Chloride 97 mmol/L (98-107); Creatinine Clr Calc Pharmacy 50.4983; Globulin 3.4 g/dL (1.3-4.6); Glucose 115 mg/dL (65-115); Magnesium 1.2 mg/dL (1.7-2.3); Osmolality Calculated 287 mOsm/kg (285-295); Potassium 4.2 mmol/L (3.5-5.1); Sodium 136 mmol/L (136-145); Total Protein 5.8 g/dL (6.6-8.7)
[2025-02-06] MEDS: heparin 5,000 unit/mL INJ 1 mL 5000 UNIT SUBCUT (05:39)
--- NOTE | 2025-02-06 07:32 | XR_ITS ---
WS: [id number] XR chest 1V portable [id number] REASON FOR EXAM: pleural effusions FINDINGS: The chest is significantly rotated. Compared to the previous day's examination, pleural effusions are again noted appear less prominent however this may be positioning. Significant cardiomegaly again noted with central venous congestion and peribronchial cuffing. Considering the difference in exposure the lungs are essentially unchanged. No other interval change or new finding. XR/XR chest 1V portable [id number] IMPRESSION: Abnormal chest probably stable compared to the previous day's examination.
--- NOTE | 2025-02-06 07:32 | P.PN_ITS ---
Subjective 2 Subjective: This morning. Patient has been on 6 of Levophed this morning. Subjectively she states she feels better. Denies a cough no fever overnight. Says shortness of breath is better. Still has trace edema bilateral lower extremities Takes midodrine at home and Bumex 2 mg twice daily. Echo still pending. He does have bilateral pleural effusions. I discussed with her if we could do a thoracentesis. She says she will think about it. Vitals/I&O/Wt Last Vital Signs Temp 98.4 F 02/06/25 01:32 Pulse 72 02/06/25 06:12 Resp 18 02/06/25 06:12 BP 90/65 02/06/25 06:12 Pulse Ox 98 02/06/25 06:12 O2 Del Method Nasal Cannula 02/06/25 01:32 O2 Flow Rate 3 02/06/25 01:32 02/05/25 02/06/25 02/06/25 22:59 06:59 14:59 Intake Total 250 / 250 804.375 / 1054.375 Output Total 1250 / 1250 600 / 1850 Balance -1000 / -1000 204.375 / -795.625 Weight last 48 hrs Weight 59.2 kg Weight 59.5 kg Weight 57.153 kg Physical Exam 2 Narrative: General: Alert oriented x3, patient seen laying in bed HEENT: Normocephalic, atraumatic, EOMI, breathing 2L NC Cardio: normal s1, s2, no gross murmers, dependent edema present at buttock areas, Respiratory: Clear to auscultation bilaterally no wheezes no rhonchi. GI: Abdomen soft, nontender, nondistended, bowel sounds + Extremities: 1+ edema b/l LE up to knees Urinary Catheter Management: [place]: Cath Placed During This Visit: yes Reason for Continuing Indwelling Catheter: Accurate Measurement of Urinary Output in Critically Ill Patients Urinary Catheter Date of Insertion: 02/05/25 Data 02/06/25 03:39 02/06/25 03:39 Micro: Microbiology 02/05/25 18:11 Legionella Urinary Antigen - Final Urine Catheterized 02/05/25 16:40 Blood Culture - Preliminary Blood SPECIMEN COLLECTED 02/05/25 16:45 Blood Culture - Preliminary Blood SPECIMEN COLLECTED A&P Assessment and plan (1) HTN (hypertension): (2) Tricuspid regurgitation: (3) Diabetes: (4) Pleural effusion: (5) Acute respiratory failure with hypoxemia: (6) Diastolic heart failure: (7) Elevated brain natriuretic peptide (BNP) level: (8) DNR (do not resuscitate): (9) CHF exacerbation: (10) Goals of care, counseling/discussion: (11) Supplemental oxygen dependent: Plan #Acute on chronic diastolic heart failure #Possible pulmonary artery hypertension #Moderate right and left small pleural effusion #Possible pneumonia #Large hiatal hernia #Diabetes mellitus, insulin-dependent ? Patient appears to be in heart failure at this time. She does have dependent edema in buttock areas and bilateral lower extremity edema up to knees 1-2+. She is quite frail to begin with. Is on midodrine at home and Bumex 2 mg twice daily. She has received 60 IV Lasix in the ER. Does seem to have fine crackles at bases at this time. Although CTA chest does show questionable pneumonia patient does not have a fever, has not had a fever recently, no leukocytosis, has not been coughing not expectorating any sputum. Clinically does not seem that she may have a pneumonia. Main complaint is shortness of breath with worsening edema. I will treat her for pneumonia with ceftriaxone azithromycin however I believe patient needs to be diuresed at this time. ? Continue ceftriaxone azithromycin, check bacterial antigen strep and Legionella. ? Repeat chest x-ray in a.m. ? We will continue on Lasix 80 IV twice daily given patient's home dose of Bumex 2 mg twice daily ? I will check echocardiogram and repeat to look for right-sided heart failure. Patient does appear to have mild JVD as well. ? EKG does show some nonspecific T wave abnormalities which are similar to her previous EKG from her admission in August. She denies any chest pain at this time. ? Will check lactic acid, TSH ? Check sputum Gram stain culture ? Check blood cultures ? Sliding scale insulin moderate dose intensity ? Hold home Lantus at this time ? Continue levothyroxine ? Continue midodrine 10 mg every 8 hours ? Check BMP twice daily to monitor for electrolyte abnormalities and replete as needed ? Continue aspirin ? Does have severe aortic and mitral calcifications predisposing to valvular stenosis however there is no documented history of aortic stenosis. ? Patient is on 3 L nasal cannula at this time. ? BNP 12,392 which is not too far off from baseline. ? Baseline troponin 45, 2-hour 6-hour troponin pending at this time ?We will admit to ICU ? Had a goals of care discussion with the patient. She states if her heart stops she would like to be let go naturally. She does not want any intervention. She also made a comment that she feels ready and knows her time is near. I told her to be optimistic and we will take care of her to the best of her ability and hopefully she will be able to go home again. DNR/DNI DVT prophylaxis: Heparin SQ twice daily 02/06/2025 I will restart midodrine. It was stopped overnight. We will continue 10 3 times daily. Continue Levophed at this time. Wean down if able. Await cardiac echo Delta troponin at 6 hours was negative. Hold home Lantus Continue sliding scale insulin Lactic acid has normalized it was 1.6 this morning. Was 2.5 on admission which I attribute to heart failure. I still question whether she has a true pneumonia. However with that questionable finding on CTA we will continue on vancomycin and cefepime. Patient does have a large hiatal hernia. She may have had aspiration? Does have pulmonary arterial hypertension which may be contributing to her shortness of breath. I will consult cardiology and await for further input. Chest x-ray from this morning does show central congestion and bilateral pleural effusions which are slightly improved compared to before. PDMP PDMP Reviewed: Not Reviewed Attestations 2 Medical Necessity Statement*: Heart failure, possible pneumonia. Requires continued hospitalization. Greater than 2 midnight stay. Patient is on vasopressor Levophed at this time. Diagnoses HTN (hypertension) I10 Nonrheumatic tricuspid valve regurgitation I36.1 Cardiac valve disease etiology: nonrheumatic Diabetes E11.9 Pleural effusion J90 Acute respiratory failure with hypoxemia J96.01 Diastolic heart failure I50.30 Elevated brain natriuretic peptide (BNP) level R79.89 DNR (do not resuscitate) Z66 CHF exacerbation I50.9 Heart failure type: unspecified Goals of care, counseling/discussion Z71.89 Supplemental oxygen dependent Z99.81
[2025-02-06] MEDS: magnesium sulfate premix 4 GM/100 ML PREMIX IV (09:44)
[2025-02-06] MEDS: norepinephrine 4 MG/250 ML BAG 22.5 MG IV ×2 (10:17→20:46)
[2025-02-06] MEDS: vancomycin 500 MG in sodium chloride 0.9% (plus) 100 ML 200 MG IV (14:07)
--- NOTE | 2025-02-06 15:24 | PHA.VACGOAL ---
Vancomycin Goal - Goal Vancomycin Goal:: 15-20 mg/L Vancomycin Indication:: Pneumonia - Therapy Day of therpy:: Day []of [] . Actual body weight (kg): 130 lb 8.218 oz - Data Labs: WBC 8.76 10^3/uL (3.29-11.43) 02/06/25 03:39 RBC 5.14 10^6/uL (3.85-5.65) 02/06/25 03:39 Hgb 14.10 g/dL (11.27-16.99) 02/06/25 03:39 Hct 44.9 % (36-47) 02/06/25 03:39 MCV 87.4 fl (85-98) 02/06/25 03:39 MCH 27.4 pg (27-33) 02/06/25 03:39 MCHC 31.4 g/dL (30-55) 02/06/25 03:39 RDW 16.0 % (12.1-15.1) H 02/06/25 03:39 Sodium 136 mmol/L (136-145) 02/06/25 03:39 Potassium 4.2 mmol/L (3.5-5.1) 02/06/25 03:39 Chloride 97 mmol/L (98-107) L 02/06/25 03:39 Carbon Dioxide 28 mmol/L (22-29) 02/06/25 03:39 Anion Gap 15.2 (5-19) 02/06/25 03:39 BUN 24 mg/dL (8-23) H 02/06/25 03:39 Creatinine 0.6 mg/dL (0.5-0.9) 02/06/25 03:39 GFR Calculation Not Reportable 02/06/25 03:39 Treatment plan:: new consult Regimen:: 500 MG Q12H
--- NOTE | 2025-02-06 15:47 | P.CONIM_ITS ---
<Statement entered by Jason Back MD - 02/06/25 18:55> Patient was evaluated and cared for in conjunction with an advanced practice practitioner. I personally examined the patient and reviewed the chart and all pertinent data including imaging, telemetry, and laboratory results. I discussed the patient in detail with the advanced practice practitioner. Please see their note for complete H&P testing result and agreed upon plan of care for the patient. 79-year-old female past medical history significant for hypertension hyperlipidemia diastolic heart failure pulmonary hypertension presented with worsening of shortness of breath lower extremity edema. Patient was diuresed effectively after that she dropped her blood pressure, we have been asked to assist in her care. GENERAL: Patient is alert, awake and oriented x3. Laying in the bed not in distress wearing oxygen HEART: Regular S1 and S2. No murmur, rub or gallop. LUNGS: Decreased breath sound bilaterally. CENTRAL NERVOUS SYSTEM: Grossly nonfocal. EXTREMITIES: Lower extremities with 1+ ankle edema Assessment and plan Acute respiratory failure on chronic Diastolic heart failure now compensated Pulmonary hypertension Hypotension Pulmonary infiltrate Patient shortness of breath can be secondary to pneumonia/pulmonary hypertension, she appeared to be well compensated rather intra volume contracted due to diuresis. There is no apparent element of sepsis. Hold diuretics IV fluid as already prescribed Oxygen for pulmonary high pressure/hypertension Midodrine 10 mg 3 times daily for hypertension Continue Levophed and titrate off as blood pressure improved Patient does not like to have any aggressive measures and would like to be treated medically only. Providers/Reason For Consult 2 Consulting Physician/Specialty*: Dr. Back Reason for Consult*: Diastolic heart failure Requesting Physician: Dr. Milton Attending Physician: Alba Milton MD Primary Care Provider: Steve Infante DO History of Present Illness History of Present Illness Natalie Marks is a 79 year old female with history of diabetes and diastolic heart failure who takes diuretics at home came to the ER with increased swelling and shortness of breath. Denied any recent chest pain or other cardiac symptoms. In the ER blood pressure was soft pulse ox showed 90% on room air. She was requiring [address] of the chest was done that showed moderate right pleural effusion and small left pleural effusion. Superimposed infection was not entirely excluded. She was given antibiotics as well as Lasix 80 mg IV push. Blood pressure dropped requiring Levophed. Blood pressure soft at baseline. She also takes midodrine at home. She is now getting fluids at 100 mL/h. Currently she appears well compensated. Currently on levo at 6. Midodrine has been restarted at 10 mg q8h. Echo was done that showed severe left ventricular hypertrophy with EF of 70-75%. Severe pulmonary hypertension. Moderate to severe tricuspid regurgitation. EKG showed right bundle branch block with moderate t wave abnormalities in the anterolateral leads. I do not see much change from previous EKG in August of this year. Troponins were 45-44-44[place] [address]. Review of Systems 2 Narrative: Consitutional: denies fever, chills, body aches Card: Denies chest pain, palpitations, irregular heart rhythm, reports edema Resp: Reports shortness of breath on exertion relieved with rest GI: denies n&v Musc: Denies extremity pain Skin: denies wounds Neuro: s/s of stroke Medications/Allergies Home Medications ?Medication ?Instructions ?Recorded ?Confirmed ?Last Taken ?Type Lactobacillus rhamnosus GG 10 1 cap PO DAILY PRN when on 08/11/24 02/05/25 Unknown History billion cell capsule (Culturelle) antibiotics acetaminophen 325 mg tablet 650 mg PO QID PRN pain or fever 08/11/24 02/05/25 Unknown History (Tylenol) bisacodyl 10 mg rectal suppository 10 mg IL DAILY PRN constipation 08/11/24 02/05/25 Unknown History camphor-menthol 0.2 %-3.5 % 1 applic topical TID PRN M USCLE 08/11/24 02/05/25 08/09/24 History topical gel SPASM magnesium hydroxide 400 mg/5 mL 30 ml PO DAILY PRN Con stipation 08/11/24 02/05/25 Unknown History oral suspension (Milk of Magnesia) ondansetron HCl 4 mg tablet 4 mg PO Q6H PRN Nausea And Vomiting 08/11/24 02/05/25 Unknown History pantoprazole 40 mg tablet,delayed 40 mg PO DAILY 08/1102/05/25 02/05/25 History release sodium phosphates 19 gram-7 118 ml [place] DAILY PRN Consti pation 08/11/24 02/05/25 Unknown History gram/118 mL enema (Fleet Enema) aspirin 81 mg tablet,delayed 81 mg PO DAILY 02/05/25 0 02/05/25 02/05/25 History release bumetanide 2 mg tablet 2 mg PO BID 02/05/25 5 02/05/25 History insulin aspart U-100 100 unit/mL See Rx Instructions . Route .COMPLEX 02/05/25 02/05/25 02/05/25 History (3 mL) subcutaneous pen insulin degludec 100 unit/mL (3 20 unit SUBCUT .COMPLE X 02/05/25 02/05/25 02/04/25 History mL) subcutaneous pen levothyroxine 100 mcg tablet 100 mcg PO DAILY 02/05/25 02/05/25 02/05/25 History midodrine 10 mg tablet 10 mg PO Q8H 02/05/2502/05/25 History potassium chloride 20 mEq 20 meq PO DAILY 02/05/2509/0102/05/25 History tablet,extended release tramadol 50 mg tablet 50 mg PO Q8H PRN Moderate Pa in 02/05/25 02/05/25 Unknown History (Scale Score 5-6) Allergies Allergy/AdvReac Type Severity Reaction Status Date / Time propoxyphene (From AdvReac Unknown Verified 08/10/24 14:14 Darvocet-N) Current Medications Generic Name Dose Route Start Last Admin Trade Name Freq PRN Reason Stop Dose Admin Albuterol/Ipratropium 3 ml 02/05/25 20:00 02/06/25 15:16 Ipratropium-Albuterol 3 Ml Neb INHALATION Not Given QID.RESPIRATORY STAR Aspirin 81 mg 02/06/25 09:00 02/06/25 08:09 Aspirin 81 Mg Ec Tablet PO 81 mg DAILY STAR Administration Azithromycin 250 mg 02/06/25 15:00 02/06/25 14:07 Azithromycin 250 Mg Tablet PO 250 mg DAILY@1500 STAR Administration Protocol Cefepime HCl 1,000 mg 02/06/25 02:00 02/06/25 13:17 Cefepime 1,000 Mg Sdv IVP 1,000 mg Q12H STAR Administration Protocol Heparin Sodium (Porcine) 5,000 unit 02/05/25 17:45 02/06/25 05:39 Heparin 5,000 Unit/Ml Inj 1 Ml SUBCUT 5,000 unit Q12H STAR Administration Norepinephrine Bitartrate 4 mg in 250 mls @ 0 mls/hr 02/06/25 01:15 02/06/25 10:17 Levophed IV 6 mcg/min .Q0M STAR 22.5 mls/hr Protocol Administration Per Protocol Vancomycin HCl 500 mg/ Sodium 100 mls @ 200 mls/hr 02/06/25 15:00 02/06/25 15:07 Chloride IV Infused Q12H STAR Infusion Sodium Chloride 1,000 mls @ 100 mls/hr 02/06/25 08:15 02/06/25 10:17 Sodium Chloride 0.9% IV 100 mls/hr .Q10H STAR Administration Insulin Human Lispro 0 unit 02/05/25 18:00 02/06/25 12:02 Insulin Lispro 100 Unit/1 Ml SUBCUT 8 unit WM&BEDTIME STAR Administration Protocol Levothyroxine Sodium 100 mcg 02/06/25 09:00 02/06/25 08:09 Levothyroxine 100 Mcg Tablet PO 100 mcg DAILY STAR Administration Midodrine 10 mg 02/06/25 09:00 02/06/25 09:25 Midodrine 5 Mg Tablet PO 10 mg Q8H STAR Administration Pantoprazole Sodium 40 mg 02/06/25 09:00 02/06/25 08:[address] 40 Mg Tablet PO 40 mg DAILY STAR Administration PFSH Acute 2 PFSH: Medical History HTN (hypertension) Carotid stenosis Tricuspid regurgitation Diabetes Hypothyroidism Polio Surgical History Hx of cataract surgery Hx of hernia repair Hx of section Family History Other Diabetes Social History Alcohol intake: current Alcohol intake frequency: other Substance/Drug Use: never Vitals/I&O/Wt Last Vital Signs Temp 98.4 F 02/06/25 08:48 Pulse 64 02/06/25 14:22 Resp 25 H 02/06/25 14:22 BP 85/63 02/06/25 14:22 Pulse Ox 95 02/06/25 14:22 O2 Del Method Nasal Cannula 02/06/25 08:00 O2 Flow Rate 2.5 02/06/25 08:00 02/06/25 02/06/25 02/06/25 06:59 14:59 22:59 Intake Total 804.375 / 0458.554 9971.875 / 1273.875 100 / 1373.875 Output Total 600 / 1850 Balance 204.375 / -874.515 8991.875 / 1273.875 100 / 1373.875 Weight last 48 hrs Weight 130 lb 8.218 oz Weight 131 lb 2.801 oz Weight 126 lb Physical Exam 2 Narrative: General: No apparent distress HENMT: normoceophalic Muskuloskeletal: Full ROM Respiratory: Normal respiratory effort, clear to auscultation bilaterally throughout all lung bates, no use of accessory muscles Cardio: No JVD, regular rate, regular rhythm, S1 S2 normal, no murmurs, peripheral pulses 2+ radial palpated bilaterally Extremities: Full ROM, normal, normal capillary refill, no cyanosis, trace edema up to knees bilaterally Neuro: Alert and oriented x4, no focal motor deficits Psych: Affect normal, mental status grossly normal Skin: No rashes or lesions noted, no wounds Urinary Catheter Management: Soto: Cath Placed During This Visit: yes Reason for Continuing Indwelling Catheter: Accurate Measurement of Urinary Output in Critically Ill Patients Urinary Catheter Date of Insertion: 02/05/25 Data 02/06/25 03:39 02/06/25 03:39 Micro: Microbiology 02/05/25 18:11 Bacterial Antigens - Final Urine Kidney 02/05/25 18:11 Legionella Urinary Antigen - Final Urine Catheterized 02/05/25 16:40 Blood Culture - Preliminary Blood SPECIMEN COLLECTED 02/05/25 16:45 Blood Culture - Preliminary Blood SPECIMEN COLLECTED A&P Assessment and plan (1) HTN (hypertension): (2) Tricuspid regurgitation: (3) Diabetes: (4) Pleural effusion: (5) Acute respiratory failure with hypoxemia: (6) Diastolic heart failure: (7) Elevated brain natriuretic peptide (BNP) level: (8) DNR (do not resuscitate): (9) CHF exacerbation: (10) Goals of care, counseling/discussion: (11) Supplemental oxygen dependent: (12) Pulmonary hypertension: Plan Patient overall appears well compensated at this time. Agree with gentle fluid hydration. Will continue to monitor for worsening s/s of sob or lower extremity edema. EF is normal. Denies chest pain. Shortness of breath most likely due to combination of severe pulmonary hypertension and diastolic heart failure causing decreased cardiac output and venous congestion. Continue to wean levophed as tolerated. Continue midodrine. Thank you, Dr. Milton, for allowing us to care for this very pleasant 79 year old female. PDMP PDMP Reviewed: Not Reviewed Consult Attestations 2 Medical Necessity Statement: Deferred to primary. 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
--- NOTE | 2025-02-06 16:18 | PC.NURSE ---
Addendum entered by KEKE Cáhvez 02/07/25 05:45: Held AM blood thinner for thoracentesis today. Original Note: Blood thinners held due to Thoracentesis scheduled for tomorrow per Ultrasound, notified Dr. Milton.
[2025-02-07] VITALS (190 sets, daily range): BP systolic 72–101; BP diastolic 48–73; PULSE 62–88; RESP 15–30; TEMP 37.1; O2SAT 83–98
[2025-02-07] MEDS: cefepime 1,000 mg SDV 1000 MG IVP ×2 (02:34→13:45)
[2025-02-07] MEDS: vancomycin 500 MG in sodium chloride 0.9% (plus) 100 ML 200 MG IV ×2 (02:35→16:01)
[2025-02-07 03:49] LABS: Hematocrit 44.8 % (36-47); Hemoglobin 13.70 g/dL (11.27-16.99); Mean Corpuscular HGB Conc 30.6 g/dL (30-55); Mean Corpuscular Hemoglobin 27.0 pg (27-33); Mean Corpuscular Volume 88.4 fl (85-98); Nucleated Red Blood Cells % 0 %; Platelet Count 317 10^3/cmm (157-399); Red Blood Count 5.07 10^6/uL (3.85-5.65); White Blood Count 10.01 10^3/uL (3.29-11.43)
[2025-02-07 04:17] LABS: Alanine Aminotransferase 18 U/L (0-33); Albumin Level 2.6 g/dL (3.5-5.2); Alkaline Phosphatase 137 U/L (35-105); Anion Gap 16.1 (5-19); Aspartate Amino Transferase 19 U/L (0-32); Blood Urea Nitrogen 21 mg/dL (8-23); Calcium 8.5 mg/dL (8.5-10.5); Carbon Dioxide 26 mmol/L (22-29); Chloride 103 mmol/L (98-107); Creatinine Clr Calc Pharmacy 50.3938; Globulin 3.4 g/dL (1.3-4.6); Glucose 58 mg/dL (65-115); Magnesium 2.0 mg/dL (1.7-2.3); Osmolality Calculated 293 mOsm/kg (285-295); Potassium 4.1 mmol/L (3.5-5.1); Sodium 141 mmol/L (136-145); Total Protein 6.0 g/dL (6.6-8.7)
[2025-02-07 04:20] LABS: Total Protein 5.4 g/dL (6.6-8.7)
[2025-02-07] MEDS: norepinephrine 4 MG/250 ML BAG 30 MG IV (06:12)
--- NOTE | 2025-02-07 07:00 | US_ITS ---
WS: [id number] ULTRASOUND-GUIDED THORACENTESIS HISTORY: RIGHT pleural effusion. Procedure, risks, and complications were explained to the patient. With the patient in an upright position, the skin over the RIGHT posterior thorax was cleansed with ChloraPrep and anesthetized with 1% buffered lidocaine. A 5 Finnish Yueh needle is inserted into the pleural fluid without complication. Approximately 20 cc of slightly cloudy but clear pleural fluid is removed without difficulty. There is only a small amount of fluid obtained. The amount of fluid between the original ultrasound several hours prior to the thoracentesis appear decreased. There is only a very small amount of fluid present and there was atelectatic lung extending into the effusion. 2 separate areas were attempted to obtain a sample. Both of these areas were obscured by the over lying atelectatic lung contacting the catheter tip. Similar amount of fluid in similar atelectatic lung on the RIGHT. US/US thoracentesis 22751 IMPRESSION: 1. RIGHT thoracentesis yielding 20 cc of fluid. The amount of pleural fluid quinn d decreased in size between the original imaging and the thoracentesis. Probabl y due to diuresis. 2. Decrease in size of both pleural effusions with atelectatic lung extending into the effusions within each breast. 3. Chest radiograph to follow to evaluate for pneumothorax.
--- NOTE | 2025-02-07 10:26 | P.PN_ITS ---
<Statement entered by Jason Back MD - 02/07/25 12:55> Patient was evaluated and cared for in conjunction with an advanced practice practitioner. I personally examined the patient and reviewed the chart and all pertinent data including imaging, telemetry, and laboratory results. I discussed the patient in detail with the advanced practice practitioner. Please see their note for complete H&P testing result and agreed upon plan of care for the patient. Patient says she is little more short of breath today Required IV Levophed to increase blood pressure GENERAL: Patient is alert, awake and oriented x3. HEART: Regular S1 and S2. No murmur, rub or gallop. LUNGS: Reduced air intake on the right side and mild crepitus on the left CENTRAL NERVOUS SYSTEM: Grossly nonfocal. EXTREMITIES: Lower extremities with out edema bilaterally. Acute respiratory failure on chronic Pulmonary hypertension Acute systolic heart failure today noncompensated Hypotension At this point since patient appeared to be more short of breath will stop IV fluid Add Lasix back 20 mg twice daily Continue Levophed Patient has poor short and long-term prognosis with multiple comorbidities. She is DNR/DNI and would not like to have any aggressive measures I have detailed discussion with the patient she would not like to get swollen as well she is thinking about thoracentesis. Subjective 2 Subjective: She reports some shortness of breath still, blood pressure is hypotensive on Levophed 6 mcg/min. Vitals/I&O/Wt Last Vital Signs Temp 98.8 F 02/07/25 04:30 Pulse 73 02/07/25 09:00 Resp 23 H 02/07/25 09:00 BP 91/68 02/07/25 09:00 Pulse Ox 90 02/07/25 09:00 O2 Del Method Nasal Cannula 02/06/25 20:00 O2 Flow Rate 2.5 02/06/25 20:00 02/06/25 02/07/25 02/07/25 22:59 06:59 14:59 Intake Total 1108.333 / 3832.208 1450 / 3832.208 240 / 240 Output Total 500 / 1100 600 / 1100 Balance 608.333 / 2732.208 850 / 2732.208 240 / 240 Weight last 48 hrs Weight 131 lb 2.801 oz Weight 130 lb 8.218 oz Weight 131 lb 2.801 oz Weight 126 lb Physical Exam 2 Const: COMMON NORMALS: no acute distress and patient oriented x3 GENERAL APPEARANCE: cooperative and comfortable ORIENTATION/CONSCIOUSNESS: Yes awake, Yes oriented to person, Yes oriented to place and Yes oriented to time Chest: COMMONS NORMALS: normal inspection of the chest and normal palpation of entire chest wall CHEST: Yes Symmetrical chest wall rise Resp: COMMON NORMALS: normal respiratory effort, No retractions, No use of accessory muscles and clear to auscultation bilaterally EFFORT & INSPECTION: Yes symmetric chest movement AUSCULTATION: clear to auscultation bilaterally Cardio: COMMON NORMALS: regular rate, regular rhythm, S1 normal heart sound present, S2 normal heart sound present, No gallops present (Cardio), No clicks present (Cardio), No murmurs present (Cardio) and No rub (Cardio) RATE: r egular rate RHYTHM: regular rhythm HEART SOUNDS: S1 normal heart sound present and S2 normal heart sound present PERIPHERAL PULSES: radial pulses present Extremity: GENERAL: Yes edema (1+ pitting edema bilateral feet) Neuro: COMMON NORMALS: patient oriented x3 and moves all extremities S ENSORIUM/ORIENTATION: Yes oriented to person, Yes oriented to place and Yes oriented to time Urinary Catheter Management: Soto: Cath Placed During This Visit: yes Reason for Continuing Indwelling Catheter: Accurate Measurement of Urinary Output in Critically Ill Patients Urinary Catheter Date of Insertion: 02/05/25 Data 02/07/25 03:34 02/07/25 03:34 Micro: Microbiology 02/05/25 16:45 Blood Culture - Preliminary Blood NEGATIVE TO DATE 02/05/25 16:40 Blood Culture - Preliminary Blood NEGATIVE TO DATE 02/05/25 18:11 Bacterial Antigens - Final Urine Kidney A&P Assessment and plan (1) HTN (hypertension): (2) Diastolic heart failure: (3) DNR (do not resuscitate): (4) Pulmonary hypertension: (5) Diabetes: (6) Tricuspid regurgitation: Plan Still requiring vasopressor support for blood pressure. Continue medical management. Fluid balance is positive currently, 2400 for the last 24 hours and 1900 cumulative. Continue midodrine 10 mg every 8 hours as needed. PDMP PDMP Reviewed: Not Reviewed Attestations 2 Medical Necessity Statement*: Hypotension requiring vasopressor Coding Level of Care Code Acute Code for [facility] Diagnoses Primary hypertension I10 Hypertension type: primary hypertension Acute diastolic heart failure I50.31 Heart failure chronicity: acute DNR (do not resuscitate) Z66 Pulmonary hypertension I27.20 Other specified diabetes mellitus with other specified complication, unspecified whether fpc insulin use E13.69 Diabetes mellitus type: other specified (including JYOTI) Diabetes mellitus line and frame poler insulin use: unspecified line and frame poler insulin use status Diabetes mellitus complication status: with other specified complication Nonrheumatic tricuspid valve regurgitation I36.1 Cardiac valve disease etiology: nonrheumatic
--- NOTE | 2025-02-07 13:40 | P.PN_ITS ---
Subjective 2 Subjective: seen today pt complains of more sob planned for thoracentesis today Vitals/I&O/Wt Last Vital Signs Temp 98.8 F 02/07/25 04:30 Pulse 70 02/07/25 11:05 Resp 16 02/07/25 11:05 BP 91/68 02/07/25 09:00 Pulse Ox 93 02/07/25 11:05 O2 Del Method Nasal Cannula 02/07/25 11:05 O2 Flow Rate 2.5 02/07/25 11:05 02/06/25 02/07/25 02/07/25 22:59 06:59 14:59 Intake Total 1108.333 / 2382.208 1450 / 3832.208 240 / 240 Output Total 500 / 500 600 / 1100 Balance 608.333 / 1882.208 850 / 2732.208 240 / 240 Weight last 48 hrs Weight 59.5 kg Weight 59.2 kg Weight 59.5 kg Weight 57.153 kg Physical Exam 2 Narrative: General: Alert oriented x3, patient seen laying in bed HEENT: Normocephalic, atraumatic, EOMI, breathing 2L NC Cardio: normal s1, s2, no gross murmers, Respiratory: mild crackles at right base GI: Abdomen soft, nontender, nondistended, bowel sounds + Extremities: 1+ edema b/l LE up to knees Urinary Catheter Management: Soto: Cath Placed During This Visit: yes Reason for Continuing Indwelling Catheter: Accurate Measurement of Urinary Output in Critically Ill Patients Urinary Catheter Date of Insertion: 02/05/25 Data 02/07/25 03:34 02/07/25 03:34 Micro: Microbiology 02/05/25 16:45 Blood Culture - Preliminary Blood NEGATIVE TO DATE 02/05/25 16:40 Blood Culture - Preliminary Blood NEGATIVE TO DATE 02/05/25 18:11 Bacterial Antigens - Final Urine Kidney A&P Assessment and plan (1) HTN (hypertension): (2) Tricuspid regurgitation: (3) Diabetes: (4) Pleural effusion: (5) Acute respiratory failure with hypoxemia: (6) Diastolic heart failure: (7) Elevated brain natriuretic peptide (BNP) level: (8) DNR (do not resuscitate): (9) CHF exacerbation: (10) Goals of care, counseling/discussion: (11) Supplemental oxygen dependent: Plan #Acute on chronic diastolic heart failure #Possible pulmonary artery hypertension #Moderate right and left small pleural effusion #Possible pneumonia #Large hiatal hernia #Diabetes mellitus, insulin-dependent ? Patient appears to be in heart failure at this time. She does have dependent edema in buttock areas and bilateral lower extremity edema up to knees 1-2+. She is quite frail to begin with. Is on midodrine at home and Bumex 2 mg twice daily. She has received 60 IV Lasix in the ER. Does seem to have fine crackles at bases at this time. Although CTA chest does show questionable pneumonia patient does not have a fever, has not had a fever recently, no leukocytosis, has not been coughing not expectorating any sputum. Clinically does not seem that she may have a pneumonia. Main complaint is shortness of breath with worsening edema. I will treat her for pneumonia with ceftriaxone azithromycin however I believe patient needs to be diuresed at this time. ? Continue ceftriaxone azithromycin, check bacterial antigen strep and Legionella. ? Repeat chest x-ray in a.m. ? We will continue on Lasix 80 IV twice daily given patient's home dose of Bumex 2 mg twice daily ? I will check echocardiogram and repeat to look for right-sided heart failure. Patient does appear to have mild JVD as well. ? EKG does show some nonspecific T wave abnormalities which are similar to her previous EKG from her admission in August. She denies any chest pain at this time. ? Will check lactic acid, TSH ? Check sputum Gram stain culture ? Check blood cultures ? Sliding scale insulin moderate dose intensity ? Hold home Lantus at this time ? Continue levothyroxine ? Continue midodrine 10 mg every 8 hours ? Check BMP twice daily to monitor for electrolyte abnormalities and replete as needed ? Continue aspirin ? Does have severe aortic and mitral calcifications predisposing to valvular stenosis however there is no documented history of aortic stenosis. ? Patient is on 3 L nasal cannula at this time. ? BNP 12,392 which is not too far off from baseline. ? Baseline troponin 45, 2-hour 6-hour troponin pending at this time ?We will admit to ICU ? Had a goals of care discussion with the patient. She states if her heart stops she would like to be let go naturally. She does not want any intervention. She also made a comment that she feels ready and knows her time is near. I told her to be optimistic and we will take care of her to the best of her ability and hopefully she will be able to go home again. DNR/DNI DVT prophylaxis: Heparin SQ twice daily 02/06/2025 I will restart midodrine. It was stopped overnight. We will continue 10 3 times daily. Continue Levophed at this time. Wean down if able. Await cardiac echo Delta troponin at 6 hours was negative. Hold home Lantus Continue sliding scale insulin Lactic acid has normalized it was 1.6 this morning. Was 2.5 on admission which I attribute to heart failure. I still question whether she has a true pneumonia. However with that questionable finding on CTA we will continue on vancomycin and cefepime. Patient does have a large hiatal hernia. She may have had aspiration? Does have pulmonary arterial hypertension which may be contributing to her shortness of breath. I will consult cardiology and await for further input. Chest x-ray from this morning does show central congestion and bilateral pleural effusions which are slightly improved compared to before. 02/07/2025 Patient has a history of pulmonary hypertension which is contributing to her shortness of breath. Plan for thoracentesis today Discussed at length with cardiology twice. I will order Lasix 20 IV twice daily today and see how patient is does Patient is on midodrine 10 3 times daily. We may consider Northera however that is on formulary medication. Will discuss with cardiology again. Will continue antibiotics for possible pneumonia to complete 7-day course however as mentioned before my suspicion is low. Wean off vasopressors as able. Patient would like to avoid invasive procedures at this time. [place]-Patrick catheter was also discussed this morning however patient does not want to do invasive procedures. Continue to monitor in ICU setting. Prognosis is very poor. PDMP PDMP Reviewed: Not Reviewed Attestations 2 Medical Necessity Statement*: Requires continued hospitalization as requiring vasopressor reports secondary to pulmonary arterial hypertension with fluid overload status. Diagnoses Primary hypertension I10 Hypertension type: primary hypertension Nonrheumatic tricuspid valve regurgitation I36.1 Cardiac valve disease etiology: nonrheumatic Other specified diabetes mellitus with other specified complication, unspecified whether superintendent terminal insulin use E13.69 Diabetes mellitus type: other specified (including JYOTI) Diabetes mellitus superintendent terminal insulin use: unspecified snf insulin use status Diabetes mellitus complication status: with other specified complication Pleural effusion J90 Acute respiratory failure with hypoxemia J96.01 Acute diastolic heart failure I50.31 Heart failure chronicity: acute Elevated brain natriuretic peptide (BNP) level R79.89 DNR (do not resuscitate) Z66 CHF exacerbation I50.9 Heart failure type: unspecified Goals of care, counseling/discussion Z71.89 Supplemental oxygen dependent Z99.81
--- NOTE | 2025-02-07 13:54 | XR_ITS ---
WS: [id number] PORTABLE CHEST HISTORY: thoracentesis follow up, RIGHT COMPARISON: 02/06/2025 No pneumothorax status post RIGHT thoracentesis. Only minimal pleural fluid was removed as these are very small effusions with mobile lung within the effusions. Overall the lungs demonstrate improved pulmonary congestion. Pleural effusions have decreased in size. Cardiac size: Moderately enlarged cardiac silhouette. Mediastinum/Aorta: Markedly ectatic aorta. No osseous abnormality seen. XR/XR chest 1V portable [id number] IMPRESSION: 1. No pneumothorax status post RIGHT thoracentesis. 2. Very small residual bilateral pleural effusions have decreased in size sinc e 02/06/2025 radiograph. 3. Interval improvement in pulmonary congestion since 02/06/2025.
[2025-02-07 14:32] LABS: Body Fluid Polynuclear #Cells 0.030; Monocytes # Body Fluid 0.116; Mononuclear WBC Body Fluid % 79.500 %; Polynuclear WBC Body Fluid % 20.500 %
[2025-02-07 14:39] LABS: Apprearance, Body Fluid CLOUDY; Color, Body Fluid AMBER
[2025-02-07 14:40] LABS: Cyto Order Verification Order Verified; Fluid Laterality PLEURAL FLUID; PATH Referral YES
[2025-02-07 15:11] LABS: Fluid Alkaline Phos. 9 IU/L
[2025-02-07] MEDS: norepinephrine 4 MG/250 ML BAG 15 MG IV (15:36)
[2025-02-07] MEDS: FUROsemide 10 mg/mL SDV 2mL 20 MG IVP (16:00)
[2025-02-07] MEDS: heparin 5,000 unit/mL INJ 1 mL 5000 UNIT SUBCUT (17:30)
[2025-02-08] VITALS (51 sets, daily range): BP systolic 63–154; BP diastolic 48–98; PULSE 46–81; RESP 13–26; TEMP 36.8; O2SAT 83–100
[2025-02-08] MEDS: cefepime 1,000 mg SDV 1000 MG IVP (01:08)
[2025-02-08] MEDS: FUROsemide 10 mg/mL SDV 2mL 20 MG IVP ×2 (01:08→14:22)
[2025-02-08] MEDS: norepinephrine 4 MG/250 ML BAG 22.5 MG IV (02:33)
[2025-02-08] MEDS: vancomycin 500 MG in sodium chloride 0.9% (plus) 100 ML 200 MG IV (02:33)
[2025-02-08 03:37] LABS: Hematocrit 43.6 % (36-47); Hemoglobin 13.30 g/dL (11.27-16.99); Mean Corpuscular HGB Conc 30.5 g/dL (30-55); Mean Corpuscular Hemoglobin 27.1 pg (27-33); Mean Corpuscular Volume 88.8 fl (85-98); Nucleated Red Blood Cells % 0 %; Platelet Count 307 10^3/cmm (157-399); Red Blood Count 4.91 10^6/uL (3.85-5.65); White Blood Count 8.53 10^3/uL (3.29-11.43)
[2025-02-08 04:06] LABS: Alanine Aminotransferase 14 U/L (0-33); Albumin Level 2.5 g/dL (3.5-5.2); Alkaline Phosphatase 124 U/L (35-105); Anion Gap 16.1 (5-19); Aspartate Amino Transferase 14 U/L (0-32); Blood Urea Nitrogen 22 mg/dL (8-23); Calcium 8.6 mg/dL (8.5-10.5); Carbon Dioxide 25 mmol/L (22-29); Chloride 102 mmol/L (98-107); Creatinine Clr Calc Pharmacy 50.4983; Globulin 3.3 g/dL (1.3-4.6); Glucose 74 mg/dL (65-115); Magnesium 1.7 mg/dL (1.7-2.3); Osmolality Calculated 290 mOsm/kg (285-295); Potassium 4.1 mmol/L (3.5-5.1); Sodium 139 mmol/L (136-145); Total Protein 5.8 g/dL (6.6-8.7)
[2025-02-08] MEDS: heparin 5,000 unit/mL INJ 1 mL 5000 UNIT SUBCUT ×2 (04:52→17:07)
--- NOTE | 2025-02-08 08:16 | PC.NURSE ---
Blood sugar 30, patient ao x4 and following commands, given orange juice and breakfast
--- NOTE | 2025-02-08 08:24 | PC.SOCIAL ---
IMM Update Pg. 2 of IMM Updated and copy provided at bedside.
--- NOTE | 2025-02-08 10:01 | ECG_ITS ---
[employer] Test Date: 2025-02-08 Pat Name: Ntaalie Marks Department: Room: ICU10 Gender: Female Seismic Prospecting Supervisor: YELENA: 1945 Requested By: Alba Milton Order Number: [id number] Reading MD: Measurements Intervals [place] Rate: 48 P: 0 NC: 0 QRS: 38 QRSD: 159 T: 189 QT: 504 QTc: 454 Interpretive Statements ATRIAL FIBRILLATION WITH SLOW VENTRICULAR RESPONSE RIGHT BUNDLE BRANCH BLOCK [120+ ms QRS DURATION, UPRIGHT V1, 40+ ms S IN I/aVL/V4/V5/V6] MODERATE T-WAVE ABNORMALITY, CONSIDER ANTEROLATERAL ISCHEMIA [-0.1+ mV T-WAVE IN V3-V6] Compared to ECG 02/05/2025 21:35:55 Sinus rhythm no longer present T-wave abnormality still present Possible ischemia still present [email or web address]
[2025-02-08] MEDS: FUROsemide 10 mg/mL SDV 4mL 40 MG IVP (10:48)
--- NOTE | 2025-02-08 10:48 | PC.NURSE ---
Dr. Milton came to bedside, gave order for 40 mg lasix now and stop iv fluid
[2025-02-08] MEDS: norepinephrine 4 MG/250 ML BAG 37.5 MG IV (11:42)
--- NOTE | 2025-02-08 12:34 | PM.PN ---
Subjective Subjective: seen this am patient feels short of breath on 4L NC on levophed 10 Vitals/I&O/Wt Last Vital Signs Temp 98.3 F 02/08/25 04:56 Pulse 46 L 02/08/25 12:00 Resp 14 02/08/25 12:00 BP 98/69 02/08/25 12:00 Pulse Ox 100 02/08/25 12:00 O2 Del Method BiPAP 02/08/25 11:36 O2 Flow Rate 4 02/08/25 08:51 FiO2 30 02/08/25 11:36 02/07/25 02/08/25 02/08/25 22:59 06:59 14:59 Intake Total 391 / 2121 1269.875 / 3390.875 700.000 / 700.000 Output Total 700 / 700 675 / 1375 Balance -309 / 1421 594.875 / 2015.875 700.000 / 700.000 Weight last 48 hrs Weight 63.866 kg Weight 59.5 kg Physical Exam Narrative: General: Alert oriented x3, patient seen laying in bed HEENT: Normocephalic, atraumatic, EOMI, breathing 4L NC Cardio: normal s1, s2, no gross murmers, Respiratory: mild crackles b/l at bases GI: Abdomen soft, nontender, nondistended, bowel sounds + Extremities: 1-2+ edema b/l LE up to knees Urinary Catheter Management: Soto: Cath Placed During This Visit: yes Reason for Continuing Indwelling Catheter: Accurate Measurement of Urinary Output in Critically Ill Patients Urinary Catheter Date of Insertion: 02/05/25 Data 02/08/25 03:27 02/08/25 03:27 Micro: Microbiology 02/07/25 14:00 Gram Stain - Final Pleural Fluid Body Fluid Culture - Preliminary A&P Assessment and plan (1) HTN (hypertension): (2) Tricuspid regurgitation: (3) Diabetes: (4) Pleural effusion: (5) Acute respiratory failure with hypoxemia: (6) Diastolic heart failure: (7) Elevated brain natriuretic peptide (BNP) level: (8) DNR (do not resuscitate): (9) CHF exacerbation: (10) Goals of care, counseling/discussion: (11) Supplemental oxygen dependent: Plan #Acute on chronic diastolic heart failure #Possible pulmonary artery hypertension #Moderate right and left small pleural effusion #Possible pneumonia #Large hiatal hernia #Diabetes mellitus, insulin-dependent ? Patient appears to be in heart failure at this time. She does have dependent edema in buttock areas and bilateral lower extremity edema up to knees 1-2+. She is quite frail to begin with. Is on midodrine at home and Bumex 2 mg twice daily. She has received 60 IV Lasix in the ER. Does seem to have fine crackles at bases at this time. Although CTA chest does show questionable pneumonia patient does not have a fever, has not had a fever recently, no leukocytosis, has not been coughing not expectorating any sputum. Clinically does not seem that she may have a pneumonia. Main complaint is shortness of breath with worsening edema. I will treat her for pneumonia with ceftriaxone azithromycin however I believe patient needs to be diuresed at this time. ? Continue ceftriaxone azithromycin, check bacterial antigen strep and Legionella. ? Repeat chest x-ray in a.m. ? We will continue on Lasix 80 IV twice daily given patient's home dose of Bumex 2 mg twice daily ? I will check echocardiogram and repeat to look for right-sided heart failure. Patient does appear to have mild JVD as well. ? EKG does show some nonspecific T wave abnormalities which are similar to her previous EKG from her admission in August. She denies any chest pain at this time. ? Will check lactic acid, TSH ? Check sputum Gram stain culture ? Check blood cultures ? Sliding scale insulin moderate dose intensity ? Hold home Lantus at this time ? Continue levothyroxine ? Continue midodrine 10 mg every 8 hours ? Check BMP twice daily to monitor for electrolyte abnormalities and replete as needed ? Continue aspirin ? Does have severe aortic and mitral calcifications predisposing to valvular stenosis however there is no documented history of aortic stenosis. ? Patient is on 3 L nasal cannula at this time. ? BNP 12,392 which is not too far off from baseline. ? Baseline troponin 45, 2-hour 6-hour troponin pending at this time ?We will admit to ICU ? Had a goals of care discussion with the patient. She states if her heart stops she would like to be let go naturally. She does not want any intervention. She also made a comment that she feels ready and knows her time is near. I told her to be optimistic and we will take care of her to the best of her ability and hopefully she will be able to go home again. DNR/DNI DVT prophylaxis: Heparin SQ twice daily 02/06/2025 I will restart midodrine. It was stopped overnight. We will continue 10 3 times daily. Continue Levophed at this time. Wean down if able. Await cardiac echo Delta troponin at 6 hours was negative. Hold home Lantus Continue sliding scale insulin Lactic acid has normalized it was 1.6 this morning. Was 2.5 on admission which I attribute to heart failure. I still question whether she has a true pneumonia. However with that questionable finding on CTA we will continue on vancomycin and cefepime. Patient does have a large hiatal hernia. She may have had aspiration? Does have pulmonary arterial hypertension which may be contributing to her shortness of breath. I will consult cardiology and await for further input. Chest x-ray from this morning does show central congestion and bilateral pleural effusions which are slightly improved compared to before. 02/07/2025 Patient has a history of pulmonary hypertension which is contributing to her shortness of breath. Plan for thoracentesis today Discussed at length with cardiology twice. I will order Lasix 20 IV twice daily today and see how patient is does Patient is on midodrine 10 3 times daily. We may consider Northera however that is on formulary medication. Will discuss with cardiology again. Will continue antibiotics for possible pneumonia to complete 7-day course however as mentioned before my suspicion is low. Wean off vasopressors as able. Patient would like to avoid invasive procedures at this time. [place]-Patrick catheter was also discussed this morning however patient does not want to do invasive procedures. Continue to monitor in ICU setting. Prognosis is very poor. 02/08/2025 order lasix 40 iv x 1 continue to hold IV fluids complete 7 days course for possible pneumonia check ct abd pelvis to assess for other cause of hypotension/shock continue levopehd and wean off as able patient denies abdominal pain or any other symptoms other than shortness of breath however also states i feel a little better today her son will be coming to visit her today thoracentesis did not yield much fluid, only [address] sahni talked to patient regarding goals of care. She has indicated to me on several occasions she would like to be DNR/DNI. Talked to her about possibility of [place] patrick catheter placement, she will think about it and will discuss with cardiology talked with learning support teacher. PDMP PDMP Reviewed: Not Reviewed Attestations Medical Necessity Statement*: Requires continued hospitalization as requiring vasopressor reports secondary to pulmonary arterial hypertension with fluid overload status. Diagnoses Primary hypertension I10 Hypertension type: primary hypertension Nonrheumatic tricuspid valve regurgitation I36.1 Cardiac valve disease etiology: nonrheumatic Other specified diabetes mellitus with other specified complication, unspecified whether corporate health consultant insulin use E13.69 Diabetes mellitus type: other specified (including JYOTI) Diabetes mellitus corporate health consultant insulin use: unspecified usp insulin use status Diabetes mellitus complication status: with other specified complication Pleural effusion J90 Acute respiratory failure with hypoxemia J96.01 Acute diastolic heart failure I50.31 Heart failure chronicity: acute Elevated brain natriuretic peptide (BNP) level R79.89 DNR (do not resuscitate) Z66 CHF exacerbation I50.9 Heart failure type: unspecified Goals of care, counseling/discussion Z71.89 Supplemental oxygen dependent Z99.81
--- NOTE | 2025-02-08 12:44 | CTR_ITS ---
PROCEDURE INFORMATION: Exam: CT Chest With Contrast; Diagnostic Exam date and time: 02/08/2025 8:27 PM Age: 79 years old Clinical indication: Shortness of breath and other: Lower ext swelling; Prior surgery; Surgery date: 6+ months; Surgery type: Hernia repair. Csection; SOB with hypotension and lower ext swelling. ; Additional info: Hypotension, eval for sepsis TECHNIQUE: Imaging protocol: Diagnostic computed tomography of the chest with contrast. Radiation optimization: All CT scans at this facility use at least one of these dose optimization techniques: automated exposure control; mA and/or kV adjustment per patient size (includes targeted exams where dose is matched to clinical indication); or iterative reconstruction. Contrast material: OMNI 350; Contrast volume: 100 ml; Contrast route: INTRAVENOUS (IV); COMPARISON: CT angio chest PE protcl [id number] 02/05/2025 3:07 PM RADIATION DOSE METRICS: Total DLP (mGy-cm): 871.81 FINDINGS: Thyroid: Thyroid is atrophic or surgically absent. Lungs: Areas of consolidation within bilateral lower lobes, new/increased from prior. Mild dependent atelectasis in the upper lobes. Mild ground-glass opacities in the aerated portions of bilateral lower lobes. Pleural spaces: Moderate bilateral pleural effusions. Heart: Moderate cardiomegaly. No pericardial effusion. Mitral annular calcifications. Aortic valve calcifications again seen. Coronary arteries: Moderate coronary artery calcifications. Esophagus: Persistent lower esophageal wall thickening. Lymph nodes: Unremarkable. No enlarged lymph nodes. Vasculature: The thoracic aorta is nonaneurysmal with diffuse atherosclerotic calcifications. The main pulmonary artery remains mildly dilated, measuring 3.2 cm in caliber. Diaphragm: Stable large hiatal hernia. Bones/joints: Similar superior endplate compression deformity at T8. Multilevel degenerative changes of the visualized spine. Soft tissues: Diffuse anasarca. PROCEDURE INFORMATION: Exam: CT Abdomen And Pelvis With Contrast Exam date and time: 02/08/2025 8:27 PM Age: 79 years old Clinical indication: Shortness of breath and other: Lower ext swelling; Prior surgery; Surgery date: 6+ months; Surgery type: Hernia repair. Csection; SOB with hypotension and lower ext swelling. ; Additional info: Hypotension, eval for sepsis TECHNIQUE: Imaging protocol: Computed tomography of the abdomen and pelvis with contrast. Radiation optimization: All CT scans at this facility use at least one of these dose optimization techniques: automated exposure control; mA and/or kV adjustment per patient size (includes targeted exams where dose is matched to clinical indication); or iterative reconstruction. Contrast material: OMNI 350; Contrast volume: 100 ml; Contrast route: INTRAVENOUS (IV); COMPARISON: CT angio chest PE protcl [id number] 02/05/2025 3:07 PM RADIATION DOSE METRICS: Total DLP (mGy-cm): 871.81 FINDINGS: Liver: Normal. No mass. Gallbladder and biliary ducts: Normal. No calcified stones. No ductal dilation. Pancreas: Normal. No ductal dilation. Spleen: Normal. No splenomegaly. Adrenal glands: Normal. No mass. Kidneys and ureters: Normal. No hydronephrosis. Stomach and bowel: Diffuse gastric wall thickening. Moderate stool scattered throughout the colon can be seen with constipation. No evidence of bowel obstruction. Appendix: No evidence of appendicitis. Intraperitoneal space: Small volume free fluid in the pelvis. Vasculature: Severe aortoiliac calcifications with severe stenosis of the infrarenal abdominal aorta. Suspected severe stenosis of the origins of the celiac and superior mesenteric arteries as well as proximal renal arteries bilaterally. Lymph nodes: Unremarkable. No enlarged lymph nodes. Urinary bladder: Urinary bladder is decompressed with a Soto catheter in place. Reproductive: Calcified uterine fibroid. Bones/joints: Levoscoliosis of the lumbar spine with multilevel advanced degenerative changes. Diffuse osseous demineralization. Soft tissues: Diffuse anasarca. Likely post-injection changes in the left anterior abdominal wall. Diffuse muscle atrophy. CT/CT chest abdpel w/*[id number] IMPRESSION: 1. New/increasing bibasilar consolidation which may represent atelectasis, though infection/aspiration not excluded. 2. Moderate bilateral pleural effusions. 3. Moderate cardiomegaly. 4. Similar large hiatal hernia with lower esophageal wall thickening. As before, direct visualization may be of benefit to exclude neoplasm. Underlying esophagitis also possible. 5. Remainder stable. IMPRESSION: 1. Diffuse gastric wall thickening may reflect gastritis. 2. Small volume free fluid in the pelvis is nonspecific. Underlying inflammation not excluded. 3. Diffuse body wall edema. 4. Severe atherosclerotic calcifications of the abdominal aorta with areas of severe stenosis. 5. Additional ancillary findings as above.
[2025-02-08 13:40] LABS: Procalcitonin 0.27 ng/mL (0-0.5)
[2025-02-08] MEDS: piperacillin-tazobactam 3.375 GM in sodium chloride 0.9% (plus) 50 ML IV ×2 (14:22→20:59)
[2025-02-08] MEDS: VANCOMYCIN ADD-Vantage 750 MG in 0.9% NaCl ADD-Vantage 250 ML 250 MG IV (16:29)
--- NOTE | 2025-02-08 17:29 | PC.NURSE ---
4 peripheal ivs went bad, no iv at this time, patient refused central line, patient was on levophed, Dr. Milton notified. bp high enough to be off levo at 105/76 currently
--- NOTE | 2025-02-08 17:36 | P.PN_ITS ---
Subjective 2 Subjective: Patient remains the same though requirement for Levophed has been increased Vitals/I&O/Wt Last Vital Signs Temp 98.3 F 02/08/25 04:56 Pulse 65 02/08/25 16:30 Resp 18 02/08/25 16:30 BP 86/62 02/08/25 16:30 Pulse Ox 96 02/08/25 16:30 O2 Del Method Nasal Cannula 02/08/25 16:18 O2 Flow Rate 4 02/08/25 16:18 FiO2 30 02/08/25 11:36 02/08/25 02/08/25 02/08/25 06:59 14:59 22:59 Intake Total 1269.875 / 3390.875 700.000 / 700.000 Output Total 675 / 1375 Balance 594.875 / 2015.875 700.000 / 700.000 Weight last 48 hrs Weight 140 lb 12.8 oz Weight 131 lb 2.801 oz Physical Exam 2 Const: OTHER: GENERAL: Patient is alert, awake and oriented x3. HEART: Regular S1 and S2. No murmur, rub or gallop. LUNGS: Decreased breath sound bilaterally. CENTRAL NERVOUS SYSTEM: Grossly nonfocal. EXTREMITIES: Lower extremities with 1+ edema bilaterally. Urinary Catheter Management: Soto: Cath Placed During This Visit: yes Reason for Continuing Indwelling Catheter: Accurate Measurement of Urinary Output in Critically Ill Patients Urinary Catheter Date of Insertion: 02/05/25 Data 02/08/25 03:27 02/08/25 03:27 Micro: Microbiology 02/07/25 14:00 Gram Stain - Final Pleural Fluid Anaerobic Culture - Preliminary Body Fluid Culture - Preliminary A&P Assessment and plan (1) HTN (hypertension): (2) Diastolic heart failure: (3) DNR (do not resuscitate): (4) Pulmonary hypertension: (5) Diabetes: (6) Tricuspid regurgitation: Plan Patient has severe pulmonary hypertension which is her main problem, I have again discussed with the patient and the family by bedside regarding ongoing conservative management as patient is not a transplant candidate for lung and she has disease with short and long-term poor prognosis. Patient agreed with it patient would not like to have any aggressive measures and would like to stay DNR/DNI. Continue gentle diuresis with IV Lasix 20 mg twice daily Continue present medications Continue oxygen Patient will not fall rate sildenafil due to blood pressure issue PDMP PDMP Reviewed: Not Reviewed Attestations 2 Medical Necessity Statement*: As per medicine Coding Level of Care Code Acute Code for Chg Fwd Diagnoses Primary hypertension I10 Hypertension type: primary hypertension Acute diastolic heart failure I50.31 Heart failure chronicity: acute DNR (do not resuscitate) Z66 Pulmonary hypertension I27.20 Other specified diabetes mellitus with other specified complication, unspecified whether half-way insulin use E13.69 Diabetes mellitus type: other specified (including JYOTI) Diabetes mellitus half-way insulin use: unspecified meterman insulin use status Diabetes mellitus complication status: with other specified complication Nonrheumatic tricuspid valve regurgitation I36.1 Cardiac valve disease etiology: nonrheumatic
--- NOTE | 2025-02-08 18:31 | PC.NURSE ---
patient refusing iv attempts at this time, stated she wants a brake. Dr. Milton notified
[2025-02-08] MEDS: iohexol 350 mg/mL 500 mL Btl (per mL) IV (20:33)
[2025-02-09] VITALS (27 sets, daily range): BP systolic 84–140; BP diastolic 49–78; PULSE 52–87; RESP 15–27; TEMP 36.4–36.6; O2SAT 76–97
[2025-02-09] MEDS: FUROsemide 10 mg/mL SDV 2mL 20 MG IVP ×2 (00:56→13:37)
[2025-02-09] MEDS: VANCOMYCIN ADD-Vantage 750 MG in 0.9% NaCl ADD-Vantage 250 ML 250 MG IV ×2 (02:20→15:03)
[2025-02-09] MEDS: piperacillin-tazobactam 3.375 GM in sodium chloride 0.9% (plus) 50 ML IV ×3 (04:52→20:35)
[2025-02-09] MEDS: heparin 5,000 unit/mL INJ 1 mL 5000 UNIT SUBCUT ×2 (04:52→17:20)
[2025-02-09 05:24] LABS: Hematocrit 44.6 % (36-47); Hemoglobin 13.50 g/dL (11.27-16.99); Mean Corpuscular HGB Conc 30.3 g/dL (30-55); Mean Corpuscular Hemoglobin 27.4 pg (27-33); Mean Corpuscular Volume 90.5 fl (85-98); Nucleated Red Blood Cells % 0 %; Platelet Count 274 10^3/cmm (157-399); Red Blood Count 4.93 10^6/uL (3.85-5.65); White Blood Count 6.89 10^3/uL (3.29-11.43)
[2025-02-09 05:44] LABS: Alanine Aminotransferase 11 U/L (0-33); Albumin Level 2.2 g/dL (3.5-5.2); Alkaline Phosphatase 113 U/L (35-105); Anion Gap 13.8 (5-19); Aspartate Amino Transferase 14 U/L (0-32); Blood Urea Nitrogen 23 mg/dL (8-23); Calcium 8.5 mg/dL (8.5-10.5); Carbon Dioxide 24 mmol/L (22-29); Chloride 104 mmol/L (98-107); Creatinine Clr Calc Pharmacy 52.1926; Globulin 3.2 g/dL (1.3-4.6); Glucose 61 mg/dL (65-115); Magnesium 1.5 mg/dL (1.7-2.3); Osmolality Calculated 288 mOsm/kg (285-295); Potassium 3.8 mmol/L (3.5-5.1); Sodium 138 mmol/L (136-145); Total Protein 5.4 g/dL (6.6-8.7)
--- NOTE | 2025-02-09 05:52 | PC.NURSE ---
Patient has been having ocasional pauses throughout the night, this am patient began having longer and more frequent pauses up to 3.[address] Arora notified, no new orders at this time.
--- NOTE | 2025-02-09 05:56 | PC.NURSE ---
Patient is still having more frequent pauses and bradycardia, Dr. Back notified and gave updated set of vitals, new order received for atropine 0.5 if patient has sustained bradycardia.
[2025-02-09] MEDS: magnesium sulfate premix 4 GM/100 ML PREMIX IV (10:10)
--- NOTE | 2025-02-09 10:26 | PC.NURSE ---
large bm noted up to bsc with max assist bath and linen change done sat in chair for approx 3 hrs. then back to bed
--- NOTE | 2025-02-09 12:09 | P.PN_ITS ---
Subjective 2 Subjective: pt is finally off pressors on 5L NC at this time says she feels weak denies chest pain Vitals/I&O/Wt Last Vital Signs Temp 97.6 F 02/09/25 05:03 Pulse 69 02/09/25 10:00 Resp 22 H 02/09/25 10:00 BP 107/70 02/09/25 10:00 Pulse Ox 97 02/09/25 10:00 O2 Del Method Nasal Cannula 02/09/25 08:48 O2 Flow Rate 5 02/09/25 08:48 FiO2 30 02/08/25 11:36 02/08/25 02/09/25 02/09/25 22:59 06:59 14:59 Intake Total 1825 / 2525.000 300 / 2825.000 350 / 350 Output Total 1000 / 1000 350 / 1350 Balance 825 / 1525.000 -50 / 1475.000 349 / 349 Weight last 48 hrs Weight 64.365 kg Weight 64.365 kg Weight 63.866 kg Physical Exam 2 Narrative: General: Alert oriented x3, patient seen laying in bed HEENT: Normocephalic, atraumatic, EOMI, breathing 5L NC Cardio: normal s1, s2, no gross murmers, Respiratory: mild crackles b/l at bases GI: Abdomen soft, nontender, nondistended, bowel sounds + Extremities: 1+ edema b/l LE up to knees Urinary Catheter Management: Soto: Cath Placed During This Visit: yes Reason for Continuing Indwelling Catheter: Accurate Measurement of Urinary Output in Critically Ill Patients Urinary Catheter Date of Insertion: 02/05/25 Data 02/09/25 05:08 02/09/25 05:08 Micro: Microbiology 02/07/25 14:00 Gram Stain - Final Pleural Fluid Anaerobic Culture - Preliminary Body Fluid Culture - Preliminary A&P Assessment and plan (1) HTN (hypertension): (2) Tricuspid regurgitation: (3) Diabetes: (4) Pleural effusion: (5) Acute respiratory failure with hypoxemia: (6) Diastolic heart failure: (7) Elevated brain natriuretic peptide (BNP) level: (8) DNR (do not resuscitate): (9) CHF exacerbation: (10) Goals of care, counseling/discussion: (11) Supplemental oxygen dependent: Plan #Acute on chronic diastolic heart failure #Possible pulmonary artery hypertension #Moderate right and left small pleural effusion #Possible pneumonia #Large hiatal hernia #Diabetes mellitus, insulin-dependent ? Patient appears to be in heart failure at this time. She does have dependent edema in buttock areas and bilateral lower extremity edema up to knees 1-2+. She is quite frail to begin with. Is on midodrine at home and Bumex 2 mg twice daily. She has received 60 IV Lasix in the ER. Does seem to have fine crackles at bases at this time. Although CTA chest does show questionable pneumonia patient does not have a fever, has not had a fever recently, no leukocytosis, has not been coughing not expectorating any sputum. Clinically does not seem that she may have a pneumonia. Main complaint is shortness of breath with worsening edema. I will treat her for pneumonia with ceftriaxone azithromycin however I believe patient needs to be diuresed at this time. ? Continue ceftriaxone azithromycin, check bacterial antigen strep and Legionella. ? Repeat chest x-ray in a.m. ? We will continue on Lasix 80 IV twice daily given patient's home dose of Bumex 2 mg twice daily ? I will check echocardiogram and repeat to look for right-sided heart failure. Patient does appear to have mild JVD as well. ? EKG does show some nonspecific T wave abnormalities which are similar to her previous EKG from her admission in August. She denies any chest pain at this time. ? Will check lactic acid, TSH ? Check sputum Gram stain culture ? Check blood cultures ? Sliding scale insulin moderate dose intensity ? Hold home Lantus at this time ? Continue levothyroxine ? Continue midodrine 10 mg every 8 hours ? Check BMP twice daily to monitor for electrolyte abnormalities and replete as needed ? Continue aspirin ? Does have severe aortic and mitral calcifications predisposing to valvular stenosis however there is no documented history of aortic stenosis. ? Patient is on 3 L nasal cannula at this time. ? BNP 12,392 which is not too far off from baseline. ? Baseline troponin 45, 2-hour 6-hour troponin pending at this time ?We will admit to ICU ? Had a goals of care discussion with the patient. She states if her heart stops she would like to be let go naturally. She does not want any intervention. She also made a comment that she feels ready and knows her time is near. I told her to be optimistic and we will take care of her to the best of her ability and hopefully she will be able to go home again. DNR/DNI DVT prophylaxis: Heparin SQ twice daily 02/06/2025 I will restart midodrine. It was stopped overnight. We will continue 10 3 times daily. Continue Levophed at this time. Wean down if able. Await cardiac echo Delta troponin at 6 hours was negative. Hold home Lantus Continue sliding scale insulin Lactic acid has normalized it was 1.6 this morning. Was 2.5 on admission which I attribute to heart failure. I still question whether she has a true pneumonia. However with that questionable finding on CTA we will continue on vancomycin and cefepime. Patient does have a large hiatal hernia. She may have had aspiration? Does have pulmonary arterial hypertension which may be contributing to her shortness of breath. I will consult cardiology and await for further input. Chest x-ray from this morning does show central congestion and bilateral pleural effusions which are slightly improved compared to before. 02/07/2025 Patient has a history of pulmonary hypertension which is contributing to her shortness of breath. Plan for thoracentesis today Discussed at length with cardiology twice. I will order Lasix 20 IV twice daily today and see how patient is does Patient is on midodrine 10 3 times daily. We may consider Northera however that is on formulary medication. Will discuss with cardiology again. Will continue antibiotics for possible pneumonia to complete 7-day course however as mentioned before my suspicion is low. Wean off vasopressors as able. Patient would like to avoid invasive procedures at this time. [place] catheter was also discussed this morning however patient does not want to do invasive procedures. Continue to monitor in ICU setting. Prognosis is very poor. 02/08/2025 order lasix 40 iv x 1 continue to hold IV fluids complete 7 days course for possible pneumonia check ct abd pelvis to assess for other cause of hypotension/shock continue levopehd and wean off as able patient denies abdominal pain or any other symptoms other than shortness of breath however also states i feel a little better today her son will be coming to visit her today thoracentesis did not yield much fluid, only [address] sahni talked to patient regarding goals of care. She has indicated to me on several occasions she would like to be DNR/DNI. Talked to her about possibility of [place] catheter placement, she will think about it and will discuss with cardiology talked with critical systems technician. 02/09/2025 continue on lasix 20 iv bid levophed has been weaned off o2 requirement 2/2 to pulm edema and pulm htn continue iv direusis gently continue midodrine cardiology following PDMP PDMP Reviewed: Not Reviewed Attestations 2 Medical Necessity Statement*: Requires continued hospitalization as requiring vasopressor reports secondary to pulmonary arterial hypertension with fluid overload status. Diagnoses Primary hypertension I10 Hypertension type: primary hypertension Nonrheumatic tricuspid valve regurgitation I36.1 Cardiac valve disease etiology: nonrheumatic Other specified diabetes mellitus with other specified complication, unspecified whether residential insulin use E13.69 Diabetes mellitus type: other specified (including JYOTI) Diabetes mellitus residential insulin use: unspecified longitudinal float operator insulin use status Diabetes mellitus complication status: with other specified complication Pleural effusion J90 Acute respiratory failure with hypoxemia J96.01 Acute diastolic heart failure I50.31 Heart failure chronicity: acute Elevated brain natriuretic peptide (BNP) level R79.89 DNR (do not resuscitate) Z66 CHF exacerbation I50.9 Heart failure type: unspecified Goals of care, counseling/discussion Z71.89 Supplemental oxygen dependent Z99.81
--- NOTE | 2025-02-09 12:34 | PC.NURSE ---
daughter in law called for update, had read progress notes on line and questioned about discharge explained that no plan made as of yet and with holiday would be tuesday before director social back
--- NOTE | 2025-02-09 16:09 | PM.PN ---
Subjective Subjective: Feeling better today , she is off the pressors blood pressure is stable breathing better Patient had episodes of bradycardia while sleeping with less than 3-second pauses but during while awake patient has good heart rate I have was not able to pull up anything on the telemetry concerning Vitals/I&O/Wt Last Vital Signs Temp 97.6 F 02/09/25 05:03 Pulse 62 02/09/25 14:00 Resp 22 H 02/09/25 14:00 BP 128/68 02/09/25 14:00 Pulse Ox 89 L 02/09/25 11:00 O2 Del Method Nasal Cannula 02/09/25 08:48 O2 Flow Rate 5 02/09/25 08:48 FiO2 30 02/08/25 11:36 02/09/25 02/09/25 02/09/25 06:59 14:59 22:59 Intake Total 300 / 2825.000 700 / 700 Output Total 350 / 1350 Balance -50 / 1475.000 699 / 699 Weight last 48 hrs Weight 141 lb 14.4 oz Weight 141 lb 14.4 oz Weight 140 lb 12.8 oz Physical Exam Const: OTHER: GENERAL: Patient is alert, awake and oriented x3. HEART: Regular S1 and S2. No murmur, rub or gallop. LUNGS: Decreased breath sound bilaterally. CENTRAL NERVOUS SYSTEM: Grossly nonfocal. EXTREMITIES: Lower extremities with 1+ edema bilaterally. Urinary Catheter Management: Soto: Cath Placed During This Visit: yes Reason for Continuing Indwelling Catheter: Accurate Measurement of Urinary Output in Critically Ill Patients Urinary Catheter Date of Insertion: 02/05/25 Data 02/09/25 05:08 02/09/25 05:08 Micro: Microbiology 02/07/25 14:00 Gram Stain - Final Pleural Fluid Anaerobic Culture - Preliminary Body Fluid Culture - Preliminary A&P Assessment and plan (1) HTN (hypertension): (2) Diastolic heart failure: (3) DNR (do not resuscitate): (4) Pulmonary hypertension: (5) Diabetes: (6) Tricuspid regurgitation: Plan Patient has severe pulmonary hypertension which is her main problem, I have again discussed with the patient and the family by bedside regarding ongoing conservative management as patient is not a transplant candidate for lung and she has disease with short and long-term poor prognosis. Patient agreed with it patient would not like to have any aggressive measures and would like to stay DNR/DNI. Continue gentle diuresis with IV Lasix 20 mg twice daily Continue present medications Continue oxygen Patient will not fall rate sildenafil due to blood pressure issue On today's visit dated 02/09/2025, patient has improved but still has short and long-term poor prognosis. Will continue managing with gentle IV diuresis and midodrine along with rest of medications. If continues to do fine may can transfer out of the unit tomorrow PDMP PDMP Reviewed: Not Reviewed Attestations Medical Necessity Statement*: As per medicine Coding Level of Care Code Acute Code for Chg Fwd Diagnoses Primary hypertension I10 Hypertension type: primary hypertension Acute diastolic heart failure I50.31 Heart failure chronicity: acute DNR (do not resuscitate) Z66 Pulmonary hypertension I27.20 Other specified diabetes mellitus with other specified complication, unspecified whether penitentiary insulin use E13.69 Diabetes mellitus type: other specified (including JYOTI) Diabetes mellitus tank terminal gauger insulin use: unspecified penitentiary insulin use status Diabetes mellitus complication status: with other specified complication Nonrheumatic tricuspid valve regurgitation I36.1 Cardiac valve disease etiology: nonrheumatic
[2025-02-10] VITALS (31 sets, daily range): BP systolic 87–148; BP diastolic 46–77; PULSE 54–85; RESP 15–31; TEMP 36.5–37; O2SAT 61–100
[2025-02-10] MEDS: VANCOMYCIN ADD-Vantage 750 MG in 0.9% NaCl ADD-Vantage 250 ML 250 MG IV (02:00)
[2025-02-10] MEDS: FUROsemide 10 mg/mL SDV 2mL 20 MG IVP ×2 (02:00→19:22)
[2025-02-10] MEDS: heparin 5,000 unit/mL INJ 1 mL 5000 UNIT SUBCUT ×2 (05:03→16:39)
[2025-02-10] MEDS: piperacillin-tazobactam 3.375 GM in sodium chloride 0.9% (plus) 50 ML IV (05:04)
[2025-02-10 05:36] LABS: Hematocrit 39.2 % (36-47); Hemoglobin 12.20 g/dL (11.27-16.99); Mean Corpuscular HGB Conc 31.1 g/dL (30-55); Mean Corpuscular Hemoglobin 27.3 pg (27-33); Mean Corpuscular Volume 87.7 fl (85-98); Nucleated Red Blood Cells % 0 %; Platelet Count 285 10^3/cmm (157-399); Red Blood Count 4.47 10^6/uL (3.85-5.65); White Blood Count 6.18 10^3/uL (3.29-11.43)
[2025-02-10 05:50] LABS: Anion Gap 15.6 (5-19); Blood Urea Nitrogen 19 mg/dL (8-23); Calcium 8.5 mg/dL (8.5-10.5); Carbon Dioxide 25 mmol/L (22-29); Chloride 104 mmol/L (98-107); Creatinine Clr Calc Pharmacy 51.1499; Glucose 55 mg/dL (65-115); Osmolality Calculated 292 mOsm/kg (285-295); Potassium 3.6 mmol/L (3.5-5.1); Sodium 141 mmol/L (136-145)
--- NOTE | 2025-02-10 10:00 | XRR_ITS ---
PROCEDURE INFORMATION: Exam: XR Chest Exam date and time: 02/10/2025 4:50 PM Age: 79 years old Clinical indication: Shortness of breath; Additional info: Chf TECHNIQUE: Imaging protocol: Radiologic exam of the chest. Views: 1 view. COMPARISON: CT chest abdpel w/*[id number] 02/08/2025 8:27 PM FINDINGS: Lungs: Similar bibasilar opacities. Mild diffuse interstitial coarsening. Pleural spaces: Persistent moderate bilateral pleural effusions. Heart/Mediastinum: Stable cardiomediastinal silhouette which remains enlarged. Vasculature: Atherosclerotic aortic plaques. Bones/joints: Unremarkable. XR/XR chest 1V portable [id number] IMPRESSION: 1. Cardiomegaly with central pulmonary vascular congestion and diffuse interstitial coarsening likely representing pulmonary edema. 2. Persistent bibasilar airspace disease with moderate bilateral pleural effusions.
[2025-02-10] MEDS: FUROsemide 10 mg/mL SDV 4mL 40 MG IVP (10:08)
--- NOTE | 2025-02-10 11:31 | PM.PN ---
Subjective Subjective: Seen today. Patient is requiring 5 L of cannula saturating 90%. I asked her if she is feeling better. She states I do not think I am ever going to get better. Respiratory rate low 20s. No conversational dyspnea does appear somewhat comfortable at this time. Continues to have bilateral lower extremity edema up to knees. Lungs still have crackles bilaterally at bases however slightly improved compared to before. She is currently on Lasix 20 IV twice daily. Patient has been off of vasopressors for 48 hours. Patient is 5 L positive since admission. I discussed with her regarding going up on her diuretic dose today. Patient is agreeable. I told her I will discuss with the insurance sales producer before doing so. Vitals/I&O/Wt Last Vital Signs Temp 97.7 F 02/10/25 04:00 Pulse 67 02/10/25 10:00 Resp 24 H 02/10/25 10:00 BP 125/60 02/10/25 10:00 Pulse Ox 89 L 02/10/25 10:00 O2 Del Method Nasal Cannula 02/09/25 08:48 O2 Flow Rate 5 02/09/25 08:48 FiO2 30 02/08/25 11:36 02/09/25 02/10/25 02/10/25 22:59 06:59 14:59 Intake Total 650 / 1350 300 / 1650 350 / 350 Output Total 1000 / 1001 850 / 1851 Balance -350 / 349 -550 / -201 350 / 350 Weight last 48 hrs Weight 61.371 kg Weight 61.371 kg Weight 64.365 kg Weight 64.365 kg Physical Exam Narrative: General: Alert oriented x3, patient seen laying in bed HEENT: Normocephalic, atraumatic, EOMI, breathing 5L NC Cardio: normal s1, s2, no gross murmers, Respiratory: mild crackles b/l at bases GI: Abdomen soft, nontender, nondistended, bowel sounds + Extremities: 1-2+ edema b/l LE up to knees Urinary Catheter Management: Soto: Cath Placed During This Visit: yes Reason for Continuing Indwelling Catheter: Accurate Measurement of Urinary Output in Critically Ill Patients Urinary Catheter Date of Insertion: 02/05/25 Data 02/10/25 05:14 02/10/25 05:14 Micro: Microbiology 02/08/25 20:51 Urine Culture - Final Urine Catheterized 02/07/25 14:00 Gram Stain - Final Pleural Fluid Anaerobic Culture - Preliminary Body Fluid Culture - Preliminary A&P Assessment and plan (1) HTN (hypertension): (2) Tricuspid regurgitation: (3) Diabetes: (4) Pleural effusion: (5) Acute respiratory failure with hypoxemia: (6) Diastolic heart failure: (7) Elevated brain natriuretic peptide (BNP) level: (8) DNR (do not resuscitate): (9) CHF exacerbation: (10) Goals of care, counseling/discussion: (11) Supplemental oxygen dependent: Plan #Acute on chronic diastolic heart failure #Possible pulmonary artery hypertension #Moderate right and left small pleural effusion #Possible pneumonia #Large hiatal hernia #Diabetes mellitus, insulin-dependent ? Patient appears to be in heart failure at this time. She does have dependent edema in buttock areas and bilateral lower extremity edema up to knees 1-2+. She is quite frail to begin with. Is on midodrine at home and Bumex 2 mg twice daily. She has received 60 IV Lasix in the ER. Does seem to have fine crackles at bases at this time. Although CTA chest does show questionable pneumonia patient does not have a fever, has not had a fever recently, no leukocytosis, has not been coughing not expectorating any sputum. Clinically does not seem that she may have a pneumonia. Main complaint is shortness of breath with worsening edema. I will treat her for pneumonia with ceftriaxone azithromycin however I believe patient needs to be diuresed at this time. ? Continue ceftriaxone azithromycin, check bacterial antigen strep and Legionella. ? Repeat chest x-ray in a.m. ? We will continue on Lasix 80 IV twice daily given patient's home dose of Bumex 2 mg twice daily ? I will check echocardiogram and repeat to look for right-sided heart failure. Patient does appear to have mild JVD as well. ? EKG does show some nonspecific T wave abnormalities which are similar to her previous EKG from her admission in August. She denies any chest pain at this time. ? Will check lactic acid, TSH ? Check sputum Gram stain culture ? Check blood cultures ? Sliding scale insulin moderate dose intensity ? Hold home Lantus at this time ? Continue levothyroxine ? Continue midodrine 10 mg every 8 hours ? Check BMP twice daily to monitor for electrolyte abnormalities and replete as needed ? Continue aspirin ? Does have severe aortic and mitral calcifications predisposing to valvular stenosis however there is no documented history of aortic stenosis. ? Patient is on 3 L nasal cannula at this time. ? BNP 12,392 which is not too far off from baseline. ? Baseline troponin 45, 2-hour 6-hour troponin pending at this time ?We will admit to ICU ? Had a goals of care discussion with the patient. She states if her heart stops she would like to be let go naturally. She does not want any intervention. She also made a comment that she feels ready and knows her time is near. I told her to be optimistic and we will take care of her to the best of her ability and hopefully she will be able to go home again. DNR/DNI DVT prophylaxis: Heparin SQ twice daily 02/06/2025 I will restart midodrine. It was stopped overnight. We will continue 10 3 times daily. Continue Levophed at this time. Wean down if able. Await cardiac echo Delta troponin at 6 hours was negative. Hold home Lantus Continue sliding scale insulin Lactic acid has normalized it was 1.6 this morning. Was 2.5 on admission which I attribute to heart failure. I still question whether she has a true pneumonia. However with that questionable finding on CTA we will continue on vancomycin and cefepime. Patient does have a large hiatal hernia. She may have had aspiration? Does have pulmonary arterial hypertension which may be contributing to her shortness of breath. I will consult cardiology and await for further input. Chest x-ray from this morning does show central congestion and bilateral pleural effusions which are slightly improved compared to before. 02/07/2025 Patient has a history of pulmonary hypertension which is contributing to her shortness of breath. Plan for thoracentesis today Discussed at length with cardiology twice. I will order Lasix 20 IV twice daily today and see how patient is does Patient is on midodrine 10 3 times daily. We may consider Northera however that is on formulary medication. Will discuss with cardiology again. Will continue antibiotics for possible pneumonia to complete 7-day course however as mentioned before my suspicion is low. Wean off vasopressors as able. Patient would like to avoid invasive procedures at this time. Woden-Patrick catheter was also discussed this morning however patient does not want to do invasive procedures. Continue to monitor in ICU setting. Prognosis is very poor. 02/08/2025 order lasix 40 iv x 1 continue to hold IV fluids complete 7 days course for possible pneumonia check ct abd pelvis to assess for other cause of hypotension/shock continue levopehd and wean off as able patient denies abdominal pain or any other symptoms other than shortness of breath however also states i feel a little better today her son will be coming to visit her today thoracentesis did not yield much fluid, only [address] sahni talked to patient regarding goals of care. She has indicated to me on several occasions she would like to be DNR/DNI. Talked to her about possibility of swan patrick catheter placement, she will think about it and will discuss with cardiology talked with insurance sales producer. 02/09/2025 continue on lasix 20 iv bid levophed has been weaned off o2 requirement 2/2 to pulm edema and pulm htn continue iv direusis gently continue midodrine cardiology following 02/10/2025 Patient on Lasix 20 IV twice daily. Will order an extra dose of Lasix 20 IV now to equal 40 total for the morning. Will continue on 20 IV at nighttime. Vasopressors have been off for 48 hours. Will discuss with cardiology with the possibility of going up further on diuretic dosing however I worry that her blood pressure might not be able to tolerate it. We may possibly consider 20 IV 3 times daily. She was on Bumex 2 mg p.o. twice daily at home. I will discuss with cardiology before making more changes to her doses. Continue to monitor in ICU at this time as she may require Levophed going forward if we attempt to diurese more aggressively. Check chest x-ray today. I discussed with patient regarding possibility of going to rehab in a nursing facility rather than assisted living. She is currently on 5 L nasal cannula. However secondary to heart failure severe pulmonary hypertension I do not know if her oxygen requirements will come down further. She understands that. I will de-escalate vancomycin and Zosyn to ceftriaxone and azithromycin. Will complete 7-day course total. I still do not believe patient had a true pneumonia however for that questionable imaging evidence of possible pneumonia we will empirically cover with antibiotic and complete 7-day course. If patient's blood pressure remained stable today we will possibly transfer her to cardiac stepdown unit tomorrow. I did talk to nursing staff to give her 20 IV of Lasix this morning to equal a total of 40. Will watch response to blood pressure prior to making further decisions. PDMP PDMP Reviewed: Not Reviewed Attestations Medical Necessity Statement*: Severe pulmonary arterial hypertension with heart failure. Still requires IV diuresis. Continue to monitor blood pressure. Requires continued hospitalization. Diagnoses Primary hypertension I10 Hypertension type: primary hypertension Nonrheumatic tricuspid valve regurgitation I36.1 Cardiac valve disease etiology: nonrheumatic Other specified diabetes mellitus with other specified complication, unspecified whether long term care administrator insulin use E13.69 Diabetes mellitus complication status: with other specified complication Diabetes mellitus long term care administrator insulin use: unspecified long term care administrator insulin use status Diabetes mellitus type: other specified (including JYOTI) Pleural effusion J90 Acute respiratory failure with hypoxemia J96.01 Acute diastolic heart failure I50.31 Heart failure chronicity: acute Elevated brain natriuretic peptide (BNP) level R79.89 DNR (do not resuscitate) Z66 CHF exacerbation I50.9 Heart failure type: unspecified Goals of care, counseling/discussion Z71.89 Supplemental oxygen dependent Z99.81
[2025-02-10] MEDS: cefTRIAXone 1,000 mg SDV 1000 MG IVP (12:50)
[2025-02-10] MEDS: water for injection-sterile 10 ML 1000 ML (12:51)
--- NOTE | 2025-02-10 15:30 | P.PN_ITS ---
Subjective 2 Subjective: Patient remained stable and feeling better though prognosis remains guarded Vitals/I&O/Wt Last Vital Signs Temp 97.9 F 02/10/25 13:00 Pulse 80 02/10/25 15:00 Resp 24 H 02/10/25 14:00 BP 89/64 02/10/25 14:00 Pulse Ox 84 L 02/10/25 14:00 O2 Del Method Nasal Cannula 02/09/25 08:48 O2 Flow Rate 5 02/09/25 08:48 FiO2 30 02/08/25 11:36 02/10/25 02/10/25 02/10/25 06:59 14:59 22:59 Intake Total 300 / 1650 510 / 510 Output Total 850 / 1851 Balance -550 / -201 510 / 510 Weight last 48 hrs Weight 135 lb 4.8 oz Weight 135 lb 4.8 oz Weight 141 lb 14.4 oz Weight 141 lb 14.4 oz Physical Exam 2 Const: OTHER: GENERAL: Patient is alert, awake and oriented x3. HEART: Regular S1 and S2. No murmur, rub or gallop. LUNGS: Decreased breath sound bilaterally. CENTRAL NERVOUS SYSTEM: Grossly nonfocal. EXTREMITIES: Lower extremities with 1+ edema bilaterally. Urinary Catheter Management: Soto: Cath Placed During This Visit: yes Reason for Continuing Indwelling Catheter: Accurate Measurement of Urinary Output in Critically Ill Patients Urinary Catheter Date of Insertion: 02/05/25 Data 02/10/25 05:14 02/10/25 05:14 Micro: Microbiology 02/07/25 14:00 Gram Stain - Final Pleural Fluid Anaerobic Culture - Preliminary Body Fluid Culture - Final 02/08/25 20:51 Urine Culture - Final Urine Catheterized A&P Assessment and plan (1) HTN (hypertension): (2) Diastolic heart failure: (3) DNR (do not resuscitate): (4) Pulmonary hypertension: (5) Diabetes: (6) Tricuspid regurgitation: Plan Patient has severe pulmonary hypertension which is her main problem, I have again discussed with the patient and the family by bedside regarding ongoing conservative management as patient is not a transplant candidate for lung and she has disease with short and long-term poor prognosis. Patient agreed with it patient would not like to have any aggressive measures and would like to stay DNR/DNI. Continue gentle diuresis with IV Lasix 20 mg twice daily Continue present medications Continue oxygen Patient will not fall rate sildenafil due to blood pressure issue On today's visit dated 02/09/2025, patient has improved but still has short and long-term poor prognosis. Will continue managing with gentle IV diuresis and midodrine along with rest of medications. If continues to do fine may can transfer out of the unit tomorrow On today's visit dated 02/10/2025 patient remains less short of breath blood pressure stable I agree with our hospitalist colleague decision to increase rate of diuresis PDMP PDMP Reviewed: Not Reviewed Attestations 2 Medical Necessity Statement*: As per medicine Coding Level of Care Code Acute Code for Chg Fwd Diagnoses Primary hypertension I10 Hypertension type: primary hypertension Acute diastolic heart failure I50.31 Heart failure chronicity: acute DNR (do not resuscitate) Z66 Pulmonary hypertension I27.20 Other specified diabetes mellitus with other specified complication, unspecified whether detention insulin use E13.69 Diabetes mellitus type: other specified (including JYOTI) Diabetes mellitus rat exterminator insulin use: unspecified rat exterminator insulin use status Diabetes mellitus complication status: with other specified complication Nonrheumatic tricuspid valve regurgitation I36.1 Cardiac valve disease etiology: nonrheumatic
[2025-02-11] VITALS (29 sets, daily range): BP systolic 86–142; BP diastolic 43–80; PULSE 55–85; RESP 16–30; TEMP 36.5–36.8; O2SAT 90–100
[2025-02-11] MEDS: FUROsemide 10 mg/mL SDV 2mL 20 MG IVP ×2 (04:03→12:18)
[2025-02-11 05:21] LABS: Hematocrit 39.4 % (36-47); Hemoglobin 12.20 g/dL (11.27-16.99); Mean Corpuscular HGB Conc 31.0 g/dL (30-55); Mean Corpuscular Hemoglobin 27.5 pg (27-33); Mean Corpuscular Volume 88.9 fl (85-98); Nucleated Red Blood Cells % 0 %; Platelet Count 288 10^3/cmm (157-399); Red Blood Count 4.43 10^6/uL (3.85-5.65); White Blood Count 6.08 10^3/uL (3.29-11.43)
[2025-02-11 05:41] LABS: Alanine Aminotransferase 9 U/L (0-33); Albumin Level 2.2 g/dL (3.5-5.2); Alkaline Phosphatase 103 U/L (35-105); Anion Gap 16.0 (5-19); Aspartate Amino Transferase 13 U/L (0-32); Blood Urea Nitrogen 21 mg/dL (8-23); Calcium 8.6 mg/dL (8.5-10.5); Carbon Dioxide 25 mmol/L (22-29); Chloride 104 mmol/L (98-107); Creatinine Clr Calc Pharmacy 51.1499; Globulin 3.4 g/dL (1.3-4.6); Glucose 102 mg/dL (65-115); Magnesium 1.5 mg/dL (1.7-2.3); Osmolality Calculated 295 mOsm/kg (285-295); Potassium 4.0 mmol/L (3.5-5.1); Sodium 141 mmol/L (136-145); Total Protein 5.6 g/dL (6.6-8.7)
[2025-02-11] MEDS: heparin 5,000 unit/mL INJ 1 mL 5000 UNIT SUBCUT ×2 (06:40→17:02)
[2025-02-11] MEDS: magnesium sulfate premix 2 GM/50 ML PIGGYBACK IV (08:19)
--- NOTE | 2025-02-11 11:19 | PC.NURSE ---
Patient refusing turning, and refused all therapy so far. Dr. Guo roundtalisha right now.
--- NOTE | 2025-02-11 12:00 | PC.SOCIAL ---
IMM Update pg 2 of IMM updated and reviewed w/ patient. Copy provided and copy dated, initialed and placed in chart.
--- NOTE | 2025-02-11 12:15 | P.PN_ITS ---
<Statement entered by Jason Back MD - 02/12/25 21:20> Patient was evaluated and cared for in conjunction with an advanced practice practitioner. I personally have examined the patient and reviewed the chart and all pertinent data including imaging, telemetry, and laboratory results. I discussed the patient in detail with the advanced practice practitioner. Please see their note for complete H&P testing result and agreed upon plan of care for the patient. Subjective 2 Subjective: She continues to have shortness of breath, felt to be related more to pulmonary hypertension than volume overload at this time. She is -1 L in the last 24 hours. Recommend to change Lasix to 40 mg daily from 20mg 3 times daily. Vitals/I&O/Wt Last Vital Signs Temp 97.7 F 02/11/25 16:12 Pulse 72 02/11/25 16:12 Resp 18 02/11/25 16:12 BP 109/68 02/11/25 16:12 Pulse Ox 96 02/11/25 16:12 O2 Del Method Nasal Cannula 02/11/25 16:12 O2 Flow Rate 5 02/11/25 13:54 FiO2 30 02/08/25 11:36 02/11/25 02/11/25 02/11/25 06:59 14:59 22:59 Intake Total 530 / 530 Output Total 450 / 1550 275 / 275 Balance -450 / -740 255 / 255 Weight last 48 hrs Weight 142 lb 3.17 oz Weight 135 lb 4.8 oz Weight 135 lb 4.8 oz Physical Exam 2 Const: COMMON NORMALS: no acute distress and patient oriented x3 GENERAL APPEARANCE: cooperative and comfortable ORIENTATION/CONSCIOUSNESS: Yes awake, Yes oriented to person, Yes oriented to place and Yes oriented to time Chest: COMMONS NORMALS: normal inspection of the chest and normal palpation of entire chest wall CHEST: Yes Symmetrical chest wall rise Resp: COMMON NORMALS: normal respiratory effort, No retractions, No use of accessory muscles and clear to auscultation bilaterally EFFORT & INSPECTION: Yes symmetric chest movement AUSCULTATION: clear to auscultation bilaterally and diminished lung sounds bilateral in the lower lung bates Cardio: COMMON NORMALS: regular rate, regular rhythm, S1 normal heart sound present, S2 normal heart sound present, No gallops present (Cardio), No clicks present (Cardio), No murmurs present (Cardio) and No rub (Cardio) RATE: r egular rate RHYTHM: regular rhythm HEART SOUNDS: S1 normal heart sound present and S2 normal heart sound present PERIPHERAL PULSES: radial pulses present Extremity: GENERAL: Yes edema (trace to 1+ pitting edema bilat LE) Neuro: COMMON NORMALS: patient oriented x3 and moves all extremities S ENSORIUM/ORIENTATION: Yes oriented to person, Yes oriented to place and Yes oriented to time Urinary Catheter Management: Soto: Cath Placed During This Visit: yes Reason for Continuing Indwelling Catheter: Accurate Measurement of Urinary Output in Critically Ill Patients Urinary Catheter Date of Insertion: 02/05/25 Data 02/11/25 05:02 02/11/25 05:02 Micro: Microbiology 02/07/25 14:00 Gram Stain - Final Pleural Fluid Anaerobic Culture - Preliminary Body Fluid Culture - Final 02/05/25 16:45 Blood Culture - Final Blood NO GROWTH AFTER 5 DAYS 02/05/25 16:40 Blood Culture - Final Blood NO GROWTH AFTER 5 DAYS A&P Assessment and plan (1) HTN (hypertension): (2) Diastolic heart failure: (3) DNR (do not resuscitate): (4) Pulmonary hypertension: (5) Diabetes: (6) Tricuspid regurgitation: Plan Continuing medical management of tricuspid regurgitation and diastolic CHF. Recommend to decrease diuretic as volume status is improved. Continue midodrine 10 mg 3 times a day. If blood pressure improves can add on sildenafil for severe pulmonary hypertension. PDMP PDMP Reviewed: Not Reviewed Attestations 2 Medical Necessity Statement*: per hospitalist Coding Level of Care Code Acute Code for [facility] Fwd Diagnoses Primary hypertension I10 Hypertension type: primary hypertension Acute diastolic heart failure I50.31 Heart failure chronicity: acute DNR (do not resuscitate) Z66 Pulmonary hypertension I27.20 Other specified diabetes mellitus with other specified complication, unspecified whether group home insulin use E13.69 Diabetes mellitus type: other specified (including JYOTI) Diabetes mellitus group home insulin use: unspecified group home insulin use status Diabetes mellitus complication status: with other specified complication Nonrheumatic tricuspid valve regurgitation I36.1 Cardiac valve disease etiology: nonrheumatic
[2025-02-11] MEDS: cefTRIAXone 1,000 mg SDV 1000 MG IVP (12:17)
--- NOTE | 2025-02-11 13:56 | PC.NURSE ---
This nurse assumed care of pt at this time.
--- NOTE | 2025-02-11 15:05 | P.PN_ITS ---
Subjective 2 Subjective: She is not having chest pain or pressure. Breathing comfortable at rest, but is requiring 6 L nasal cannula oxygen. Vitals/I&O/Wt Last Vital Signs Temp 98.1 F 02/11/25 08:30 Pulse 55 L 02/11/25 12:00 Resp 19 H 02/11/25 12:00 BP 121/58 02/11/25 12:00 Pulse Ox 91 02/11/25 12:00 O2 Del Method Nasal Cannula 02/11/25 08:45 O2 Flow Rate 5 02/11/25 13:54 FiO2 30 02/08/25 11:36 02/11/25 02/11/25 02/11/25 06:59 14:59 22:59 Intake Total 530 / 530 Output Total 450 / 1550 275 / 275 Balance -450 / -740 255 / 255 Weight last 48 hrs Weight 64.5 kg Weight 61.371 kg Weight 61.371 kg Physical Exam 2 Const: COMMON NORMALS: patient oriented x3 and alert GENERAL APPEARANCE: c ooperative ORIENTATION/CONSCIOUSNESS: Yes awake HENMT: COMMON NORMALS: oropharynx normal Neck/C-Spine: COMMON NORMALS: no JVD Resp: COMMON NORMALS: normal respiratory effort and clear to auscultation bilaterally AUSCULTATION: clear to auscultation bilaterally Cardio: COMMON NORMALS: no JVD, regular rhythm, S1 normal heart sound present, S2 normal heart sound present and No murmurs present (Cardio) RHYTHM: regular rhythm HEART SOUNDS: S1 normal heart sound present and S2 normal heart sound present GI: COMMON NORMALS: Normal to inspection, nondistended, normoactive bowel sounds present, Soft to palpation and non-tender PALPATION: Yes Soft to palpation Extremity: COMMON NORMALS: no joint enlargement GENERAL: Yes edema (Trace) Neuro: COMMON NORMALS: patient oriented x3 and moves all extremities S ENSORIUM/ORIENTATION: Yes alert Skin: COMMON NORMALS: no rashes or lesions noted GENERAL SKIN EXAM: no rashes or lesions noted Urinary Catheter Management: Soto: Cath Placed During This Visit: yes Reason for Continuing Indwelling Catheter: Accurate Measurement of Urinary Output in Critically Ill Patients Urinary Catheter Date of Insertion: 02/05/25 Data 02/11/25 05:02 02/11/25 05:02 Micro: Microbiology 02/07/25 14:00 Gram Stain - Final Pleural Fluid Anaerobic Culture - Preliminary Body Fluid Culture - Final 02/05/25 16:45 Blood Culture - Final Blood NO GROWTH AFTER 5 DAYS 02/05/25 16:40 Blood Culture - Final Blood NO GROWTH AFTER 5 DAYS 02/08/25 20:51 Urine Culture - Final Urine Catheterized A&P Assessment and plan (1) HTN (hypertension): (2) Tricuspid regurgitation: (3) Diabetes: (4) Pleural effusion: (5) Acute respiratory failure with hypoxemia: (6) Diastolic heart failure: (7) Elevated brain natriuretic peptide (BNP) level: (8) DNR (do not resuscitate): (9) CHF exacerbation: (10) Goals of care, counseling/discussion: (11) Supplemental oxygen dependent: Plan #Acute on chronic diastolic heart failure #Possible pulmonary artery hypertension #Moderate right and left small pleural effusion #Possible pneumonia #Large hiatal hernia #Diabetes mellitus, insulin-dependent Acute diastolic CHF: Reviewed vitals, intake and output, CBC, CMP. Noted hypomagnesemia, requested replacement. Discussed with cardiology. With adjustment of Lasix dose to 40 mg daily. Monitor intake and output. Monitor in telemetry with risk of arrhythmia/electrolyte imbalance. Can transfer out of ICU. Continue oxygen support. Wean down as tolerating. Possible pneumonia: Can ceftriaxone, azithromycin. Reviewed urine bacterial antigens. Goals of care: On goals of care discussion with her, states she would really would rather prefer to return to assisted living and is somewhat skeptical about rehabilitation, although is okay to further discuss options. She states that she does not feel that she will improve given she has not been doing much better despite the multiple attempts at treatment in the hospital. She states that she did have a friend who stayed in the assisted living and in their and she feels that she would like to do that. She has not considered hospice so far. She would be willing to hear more information about it, but she is not sure that she will go that route. Discussed with lining caser. PDMP PDMP Reviewed: Not Reviewed Attestations 2 Medical Necessity Statement*: Continue admission for assessment and management of acute diastolic congestive heart failure, in a lady with underlying pulmonary hypertension, possible pneumonia, and goals of care discussions and post discharge planning. and High MDM includes amount and/or complexity of data reviewed/ordered [ resulted lab(s)/test(s), ordered lab(s)/test(s) and other healthcare professional discussion] as documented Diagnoses Primary hypertension I10 Hypertension type: primary hypertension Nonrheumatic tricuspid valve regurgitation I36.1 Cardiac valve disease etiology: nonrheumatic Other specified diabetes mellitus with other specified complication, unspecified whether usp insulin use E13.69 Diabetes mellitus type: other specified (including JYOTI) Diabetes mellitus intermodal customer service insulin use: unspecified usp insulin use status Diabetes mellitus complication status: with other specified complication Pleural effusion J90 Acute respiratory failure with hypoxemia J96.01 Acute diastolic heart failure I50.31 Heart failure chronicity: acute Elevated brain natriuretic peptide (BNP) level R79.89 DNR (do not resuscitate) Z66 CHF exacerbation I50.9 Heart failure type: unspecified Goals of care, counseling/discussion Z71.89 Supplemental oxygen dependent Z99.81
[2025-02-12] VITALS (9 sets, daily range): BP systolic 100–134; BP diastolic 64–81; PULSE 65–72; RESP 16–18; TEMP 36.5–36.8; O2SAT 92–95
[2025-02-12 04:57] LABS: Hematocrit 39.1 % (36-47); Hemoglobin 12.00 g/dL (11.27-16.99); Mean Corpuscular HGB Conc 30.7 g/dL (30-55); Mean Corpuscular Hemoglobin 27.0 pg (27-33); Mean Corpuscular Volume 87.9 fl (85-98); Nucleated Red Blood Cells % 0 %; Platelet Count 269 10^3/cmm (157-399); Red Blood Count 4.45 10^6/uL (3.85-5.65); White Blood Count 5.89 10^3/uL (3.29-11.43)
[2025-02-12 05:15] LABS: Alanine Aminotransferase 9 U/L (0-33); Albumin Level 2.3 g/dL (3.5-5.2); Alkaline Phosphatase 104 U/L (35-105); Anion Gap 14.3 (5-19); Aspartate Amino Transferase 25 U/L (0-32); Blood Urea Nitrogen 23 mg/dL (8-23); Calcium 8.9 mg/dL (8.5-10.5); Carbon Dioxide 28 mmol/L (22-29); Chloride 103 mmol/L (98-107); Creatinine Clr Calc Pharmacy 52.2396; Globulin 3.4 g/dL (1.3-4.6); Glucose 98 mg/dL (65-115); Magnesium 1.7 mg/dL (1.7-2.3); Osmolality Calculated 296 mOsm/kg (285-295); Potassium 4.3 mmol/L (3.5-5.1); Sodium 141 mmol/L (136-145); Total Protein 5.7 g/dL (6.6-8.7)
[2025-02-12] MEDS: heparin 5,000 unit/mL INJ 1 mL 5000 UNIT SUBCUT (05:16)
[2025-02-12] MEDS: cefTRIAXone 1,000 mg SDV 1000 MG IVP (11:41)
--- NOTE | 2025-02-12 12:05 | P.PN_ITS ---
<Statement entered by Jason Back MD - 02/12/25 20:45> Patient was evaluated and cared for in conjunction with an advanced practice practitioner. I personally have not examined the patient and reviewed the chart and all pertinent data including imaging, telemetry, and laboratory results. I discussed the patient in detail with the advanced practice practitioner. Please see their note for complete H&P testing result and agreed upon plan of care for the patient. Assessment and plan Severe pulm hypertension Diastolic heart failure well compensated Hypotension which has improved Continue p.o. diuretics continue current medications Since blood pressure has improved add sildenafil Continue oxygen for severe pulm hypertension which is her main problem Subjective 2 Subjective: No changes overnight. She is considering discharge to the intermediate/hospice. She is stable on diuretics, no increase in shortness of breath. Blood pressures stable on midodrine. Vitals/I&O/Wt Last Vital Signs Temp 97.9 F 02/12/25 10:50 Pulse 72 02/12/25 10:50 Resp 18 02/12/25 10:50 BP 127/79 02/12/25 10:50 Pulse Ox 93 02/12/25 10:50 O2 Del Method Nasal Cannula 02/12/25 10:50 O2 Flow Rate 4.5 02/12/25 10:00 FiO2 30 02/08/25 11:36 02/11/25 02/12/25 02/12/25 22:59 06:59 14:59 Intake Total 360 / 890 240 / 240 Output Total 950 / 1325 100 / 1325 Balance -590 / -435 -100 / -435 240 / 240 Weight last 48 hrs Weight 144 lb 3 oz Weight 142 lb 3.17 oz Physical Exam 2 Const: COMMON NORMALS: no acute distress and patient oriented x3 GENERAL APPEARANCE: cooperative and comfortable ORIENTATION/CONSCIOUSNESS: Yes awake, Yes oriented to person, Yes oriented to place and Yes oriented to time Chest: COMMONS NORMALS: normal inspection of the chest and normal palpation of entire chest wall CHEST: Yes Symmetrical chest wall rise Resp: COMMON NORMALS: normal respiratory effort, No retractions, No use of accessory muscles and clear to auscultation bilaterally EFFORT & INSPECTION: Yes symmetric chest movement AUSCULTATION: clear to auscultation bilaterally Cardio: COMMON NORMALS: regular rate, regular rhythm, S1 normal heart sound present, S2 normal heart sound present, No gallops present (Cardio), No clicks present (Cardio), No murmurs present (Cardio) and No rub (Cardio) RATE: r egular rate RHYTHM: regular rhythm HEART SOUNDS: S1 normal heart sound present and S2 normal heart sound present PERIPHERAL PULSES: radial pulses present Extremity: GENERAL: Yes edema (1+ pitting edema bilateral feet) Neuro: COMMON NORMALS: patient oriented x3 and moves all extremities S ENSORIUM/ORIENTATION: Yes oriented to person, Yes oriented to place and Yes oriented to time Urinary Catheter Management: Soto: Cath Placed During This Visit: yes Reason for Continuing Indwelling Catheter: Acute Urinary Retention or Obstruction Urinary Catheter Date of Insertion: 02/05/25 Data 02/12/25 04:46 02/12/25 04:46 Micro: Microbiology 02/07/25 14:00 Gram Stain - Final Pleural Fluid Anaerobic Culture - Preliminary Body Fluid Culture - Final A&P Assessment and plan 1. Tricuspid regurgitation: 2. Acute on chronic diastolic heart failure: 3. DNR (do not resuscitate): 4. Pulmonary hypertension: Plan: Stable from cardiac perspective. No changes recommended. Agree with potential hospice plan. PDMP PDMP Reviewed: Not Reviewed Attestations 2 Medical Necessity Statement*: per hospitalist Coding Level of Care Code Acute Code for [facility] Diagnoses Tricuspid regurgitation I07.1 Acute on chronic diastolic heart failure I50.33 Heart failure chronicity: acute on chronic DNR (do not resuscitate) Z66 Pulmonary hypertension I27.20
--- NOTE | 2025-02-12 13:40 | PM.DCS ---
Discharge Providers Date of Admission: 02/05/25 16:25 Date of Discharge: February 12, 2025 Attending Provider at Admission: Alba Milton MD Attending Provider at Discharge: Siddharth Charles Primary Care Provider: Steve Infante DO Diagnoses at Discharge Discharge Diagnosis 1. Nonrheumatic tricuspid valve regurgitation: 2. Acute on chronic diastolic heart failure: 3. DNR (do not resuscitate): 4. Pulmonary hypertension: Reason for Visit Reason for Visit: [place] sent, fluid build up Brief History: Natalie Marks is a 79 year old female with past medical history of hypertension, history of polio as a child, palpitations, dyslipidemia, diabetes mellitus, heart failure who presented to the hospital today for shortness of breath. She states that she has been gaining fluid. She states she knew that this was water retention once again as she has had a previous admission 3 months ago at our hospital. He says she felt like a new woman when she left her hospital 3 months ago however she states all her symptoms are returning. She states she would like to be a DNR/DNI. She states if her heart stops she does not want to be resuscitated. Denies a cough. Denies a fever. He is not expectorating any sputum. Her main complaint is worsening shortness of breath and lower extremity edema. She has not been ill lately and denies any ill contacts. Takes Bumex 2 mg twice daily at home. Hospital Course Hospital Course Was admitted and treated with IV diuretics, hospitalization complicated by hypotension with diuresis, requiring Levophed support, gradually weaned off pressors. Continued with oxygen support. Echocardiogram obtained, with finding of severe pulmonary hypertension, normal ejection fraction, grade 1 diastolic dysfunction, mild MVR, moderate to severe TVR. Was further assessed by cardiology. Continued with gradual diuresis with monitoring blood pressure, subsequently transition to oral diuretics and midodrine. Declined [place] catheter. Received antibiotics for possible concomitant pneumonia. Pleural effusion drained with thoracentesis, minimal fluid, sterile culture. Continue to require oxygen support. Further post discharge planning took place with consideration of options and discussion and consideration of hospice care as well given her wishes of limited resuscitation and her understanding of her overall condition. Ultimately she chose not to pursue hospice at this time, will pursue skilled rehabilitation at [place]. Physical Exam Const: COMMON NORMALS: patient oriented x3 and alert GENERAL APPEARANCE: cooperative ORIENTATION/CONSCIOUSNESS: Yes awake HENMT: COMMON NORMALS: oropharynx normal Neck/C-Spine: COMMON NORMALS: no JVD Resp: COMMON NORMALS: normal respiratory effort and clear to auscultation bilaterally AUSCULTATION: clear to auscultation bilaterally Cardio: COMMON NORMALS: no JVD, regular rhythm, S1 normal heart sound present, S2 normal heart sound present and No murmurs present (Cardio) RHYTHM: regular rhythm HEART SOUNDS: S1 normal heart sound present and S2 normal heart sound present GI: COMMON NORMALS: Normal to inspection, nondistended, normoactive bowel sounds present, Soft to palpation and non-tender PALPATION: Yes Soft to palpation Extremity: COMMON NORMALS: no joint enlargement GENERAL: Yes edema (Trace) Neuro: COMMON NORMALS: patient oriented x3 and moves all extremities SENSORIUM/ORIENTATION: Yes alert Skin: COMMON NORMALS: no rashes or lesions noted GENERAL SKIN EXAM: no rashes or lesions noted Urinary Catheter Management: Soto: Cath Placed During This Visit: yes Reason for Continuing Indwelling Catheter: Acute Urinary Retention or Obstruction Urinary Catheter Date of Insertion: 02/05/25 Discharge Data Studies Completed and Pending Completed Studies During Hospitalization Category Date Time Status CT chest abdomen pelvis [CT chest abdpel w/*[id number] Cat Scan 02/08/25 12:44 Completed ] Stat CTA chest [CT angio chest PE protcl [id number]] Stat Cat Scan 02/05/25 14:59 Completed CXRP [XR chest 1V portable [id number]] Routine Exams 02/10/25 10:00 Completed CXRP [XR chest 1V portable [id number]] Stat Exams 02/07/25 13:54 Completed XR chest 1V portable [id number] Stat Exams 02/05/25 13:34 Completed XR chest 1V portable [id number] Stat Exams 02/06/25 07:32 Completed CV. echo complete* [id number] Stat Ultrasound 02/05/25 17:41 Completed US thoracentesis [id number] Routine Ultrasound 02/07/25 07:00 Completed Pending at discharge Category Date Time Status Amylase, Peritoneal Fluid Routine Lab 02/06/25 16:02 Ordered Amylase, Pleural Fluid Routine Lab 02/06/25 16:02 Received Anaerobic Culture Routine Lab 02/06/25 16:02 Results Body Fluid Culture & GS Routine Lab 02/06/25 16:02 Results Sputum Culture and Gram Stain Stat Lab 02/05/25 17:41 Uncollected Cytology [PTH] Routine Pth 02/06/25 16:02 Received Radiology Impressions Chest CTA 02/05/25 14:59 IMPRESSION: 1. No acute central or lobar pulmonary embolism. Mild dilatation of the main pulmonary artery which is nonspecific but can be seen in the setting of pulmonary arterial hypertension. 2. Cardiomegaly with regurgitation of contrast into the hepatic IVC suggesting some degree of right heart failure. Echocardiographic correlation is advised. 3. Moderate right and small left pleural effusion with overlying compressive atelectasis. Superimposed infection is not entirely excluded. 4. Large sliding hiatal hernia with distal esophageal and gastric wall thickening suggesting esophagitis/gastritis. Underlying primary esophageal malignancy is not excluded. Recommend clinical correlation and direct visualization as clinically indicated. 5. Severe aortic and mitral valvular calcifications which predisposes to valvular stenosis. Thoracentesis Ultrasound 02/07/25 07:00 IMPRESSION: 1. RIGHT thoracentesis yielding 20 cc of fluid. The amount of pleural fluid had decreased in size between the original imaging and the thoracentesis. Probably due to diuresis. 2. Decrease in size of both pleural effusions with atelectatic lung extending into the effusions within each breast. 3. Chest radiograph to follow to evaluate for pneumothorax. Chest/Abdomen/Pelvis CT 02/08/25 12:44 IMPRESSION: 1. New/increasing bibasilar consolidation which may represent atelectasis, though infection/aspiration not excluded. 2. Moderate bilateral pleural effusions. 3. Moderate cardiomegaly. 4. Similar large hiatal hernia with lower esophageal wall thickening. As before, direct visualization may be of benefit to exclude neoplasm. Underlying esophagitis also possible. 5. Remainder stable. IMPRESSION: 1. Diffuse gastric wall thickening may reflect gastritis. 2. Small volume free fluid in the pelvis is nonspecific. Underlying inflammation not excluded. 3. Diffuse body wall edema. 4. Severe atherosclerotic calcifications of the abdominal aorta with areas of severe stenosis. 5. Additional ancillary findings as above. Chest X-Ray 02/10/25 10:00 IMPRESSION: 1. Cardiomegaly with central pulmonary vascular congestion and diffuse interstitial coarsening likely representing pulmonary edema. 2. Persistent bibasilar airspace disease with moderate bilateral pleural effusions. Laboratory Results WBC 5.89 10^3/uL (3.29-11.43) 02/12/25 04:46 RBC 4.45 10^6/uL (3.85-5.65) 02/12/25 04:46 Hgb 12.00 g/dL (11.27-16.99) 02/12/25 04:46 Hct 39.1 % (36-47) 02/12/25 04:46 MCV 87.9 fl (85-98) 02/12/25 04:46 MCH 27.0 pg (27-33) 02/12/25 04:46 MCHC 30.7 g/dL (30-55) 02/12/25 04:46 RDW 16.1 % (12.1-15.1) H 02/12/25 04:46 Plt Count 269 10^3/cmm (157-399) 02/12/25 04:46 MPV 10.2 fL (7.4-10.4) 02/12/25 04:46 Neut % (Auto) 66.4 % 02/12/25 04:46 Lymph % (Auto) 17.3 % 02/12/25 04:46 [place] % (Auto) 13.6 % 02/12/25 04:46 Eos % (Auto) 1.4 % 02/12/25 04:46 Baso % (Auto) 0.8 % 02/12/25 04:46 Neut # (Auto) 3.91 10^3/uL (1.8-7.7) 02/12/25 04:46 Lymph # (Auto) 1.0 10^3/uL (0.8-4.8) 02/12/25 04:46 [place] # (Auto) 0.8 10^3/uL (0.2-0.9) 02/12/25 04:46 Eos # (Auto) 0.1 10^3/uL (0.0-0.8) 02/12/25 04:46 Baso # (Auto) 0.1 10^3/uL (0.0-0.1) 02/12/25 04:46 Nucleated RBC % (auto) 0 % 02/12/25 04:46 Nucleated RBCs # 0.0 /100WBC 02/12/25 04:46 Differential Comment Yes 02/07/25 14:00 Sodium 141 mmol/L (136-145) 02/12/25 04:46 Potassium 4.3 mmol/L (3.5-5.1) 02/12/25 04:46 Chloride 103 mmol/L (98-107) 02/12/25 04:46 Carbon Dioxide 28 mmol/L (22-29) 02/12/25 04:46 Anion Gap 14.3 (5-19) 02/12/25 04:46 BUN 23 mg/dL (8-23) 02/12/25 04:46 Creatinine 0.6 mg/dL (0.5-0.9) 02/12/25 04:46 GFR Calculation Not Reportable 02/12/25 04:46 Glucose 98 mg/dL (65-115) 02/12/25 04:46 POC Glucose 93 mg/dL (70-110) 02/12/25 06:04 Calculated Osmolality 296 mOsm/kg (285-295) H 02/12/25 04:46 Lactic Acid 2.3 mmol/L (0.5-2.2) H 02/05/25 16:40 Lactic Acid (Sepsis) 1.6 mmol/L (0.5-2.2) 02/05/25 19:52 Calcium 8.9 mg/dL (8.5-10.5) 02/12/25 04:46 Phosphorus 4.1 mg/dL (2.5-4.5) 02/09/25 05:08 Magnesium 1.7 mg/dL (1.7-2.3) 02/12/25 04:46 Total Bilirubin 0.2 mg/dL (0.15-1.2) 02/12/25 04:46 AST 25 U/L (0-32) 02/12/25 04:46 ALT 9 U/L (0-33) 02/12/25 04:46 Alkaline Phosphatase 104 U/L (35-105) 02/12/25 04:46 Lactate Dehydrogenase 361 U/L (135-214) H 02/07/25 03:34 Troponin T Baseline 45 ng/L (0-10) H 02/05/25 14:20 Troponin T 120 Minute 44.16 ng/L (0-10) H 02/05/25 16:40 Delta Troponin T -0.84 ABS# (0-10) L 02/05/25 16:40 Troponin T Hi Sens 6Hr 44.98 ng/L (0-10) H 02/05/25 19:52 Troponin T Hi Sens 6Hr Delta -0.02 ng/L (0-12) L 02/05/25 19:52 NT-Pro-B Natriuret Pep 93280 pg/mL (0-450) H 02/05/25 14:20 Total Protein 5.7 g/dL (6.6-8.7) L 02/12/25 04:46 Albumin 2.3 g/dL (3.5-5.2) L 02/12/25 04:46 Globulin 3.4 g/dL (1.3-4.6) 02/12/25 04:46 Procalcitonin 0.27 ng/mL (0-0.5) 02/08/25 03:27 TSH 21.87 uIU/mL (0.27-4.20) H 02/05/25 14:20 Urine Color Yellow (Yellow) 02/05/25 18:11 Urine Appearance Clear (CLEAR) 02/05/25 18:11 Urine pH 6.5 (5-7) 02/05/25 18:11 Ur Specific [place] 1.022 (1.005-1.030) 02/05/25 18:11 Urine Protein 2+ (Negative) A 02/05/25 18:11 Urine Glucose (UA) Negative (Normal) 02/05/25 18:11 Urine Ketones Negative (Negative) 02/05/25 18:11 Urine Blood Trace (Negative) A 02/05/25 18:11 Urine Nitrate Negative (Negative) 02/05/25 18:11 Urine Bilirubin Negative (Negative) 02/05/25 18:11 Urine Urobilinogen 0.2 mg/dL (Negative) 02/05/25 18:11 Ur Leukocyte Esterase Negative (Negative) 02/05/25 18:11 Urine RBC 6-10 /hpf (0-2) 02/05/25 18:11 Urine WBC 0-5 /hpf (0-5) 02/05/25 18:11 Ur Squamous Epith Cells 0-5 /hpf (0-5) 02/05/25 18:11 Amorphous Sediment Not Reportable 02/05/25 18:11 Urine Bacteria None seen /hpf (NONE) 02/05/25 18:11 Hyaline Casts 2.05 /lpf 02/05/25 18:11 Fluid Color Veronica 02/07/25 14:00 Fluid Appearance Cloudy 02/07/25 14:00 Fluid Specific Grav 1.013 02/07/25 14:00 Fluid pH 7.0 02/07/25 14:00 Fluid WBC 146 /uL 02/07/25 14:00 Fluid RBC 3.000 10^3/uL 02/07/25 14:00 Fld Polynuclear WBCs # 0.030 02/07/25 14:00 Fld Polynuclear WBCs % 20.500 % 02/07/25 14:00 Fl Mononucl WBCs #(Auto) 0.116 02/07/25 14:00 Fl Mononuclear % Auto 79.500 % 02/07/25 14:00 Fld Crystal Laterality Pleural fluid 02/07/25 14:00 Fluid Glucose 167.0 mg/dL 02/07/25 14:00 Fluid Albumin 0.4 g/dL 02/07/25 14:00 Fluid LDH 63 U/L 02/07/25 14:00 Fluid Alk Phosphatase 9 IU/L 02/07/25 14:00 Fluid Cholesterol 13 mg/dL (0-200) 02/07/25 14:00 Fluid Triglycerides 9 mg/dL (0-150) 02/07/25 14:00 Fluid Uric Acid 7 mg/dL 02/07/25 14:00 Pleural Total Protein 0.6 g/dL 02/07/25 14:00 Vancomycin Trough 8.7 ug/mL (10-15) L 02/08/25 13:26 Vitals Last Vital Signs Temp 97.9 F 02/12/25 10:50 Pulse 72 02/12/25 10:50 Resp 18 02/12/25 10:50 BP 127/79 02/12/25 10:50 Pulse Ox 93 02/12/25 10:50 O2 Del Method Nasal Cannula 02/12/25 10:50 O2 Flow Rate 4.5 02/12/25 10:00 FiO2 30 02/08/25 11:36 Discharge Plan Discharge Patient Disposition: Xfer [facility] Condition: Stable Prescriptions: New azithromycin 250 mg Tablet 500 mg PO DAILY Qty: 8 0RF cefdinir 300 mg capsule 300 mg PO BID 4 Days Qty: 8 0RF Continued acetaminophen [Tylenol] 325 mg Tablet 650 mg PO QID PRN (Reason: pain or fever) ondansetron HCl 4 mg Tablet 4 mg PO Q6H PRN (Reason: Nausea And Vomiting) magnesium hydroxide [Milk of Magnesia] 400 mg/5 mL Suspension 30 ml PO DAILY PRN (Reason: Constipation) bisacodyl 10 mg Suppository 10 mg MN DAILY PRN (Reason: constipation ) pantoprazole 40 mg tablet,delayed release (DR/EC) 40 mg PO DAILY Fleet Enema 19-7 gram/118 mL Enema 118 ml MN DAILY PRN (Reason: Constipation) Culturelle 10 billion cell Capsule 1 cap PO DAILY PRN (Reason: when on antibiotics) camphor-menthol 0.2-3.5 % Gel 1 applic TOPICAL TID PRN (Reason: MUSCLE SPASM ) Rx Instructions: APPLY TO NECK, rub in gently and completely. bumetanide 2 mg Tablet 2 mg PO BID aspirin 81 mg Tablet,Delayed Release (Dr/Ec) 81 mg PO DAILY tramadol 50 mg tablet 50 mg PO Q8H PRN (Reason: Moderate Pain (Scale Score 5-6)) levothyroxine 100 mcg tablet 100 mcg PO DAILY insulin aspart U-100 100 unit/mL (3 mL) insulin pen See Rx Instructions .ROUTE .COMPLEX Rx Instructions: INJECT PER MODERATES SLIDING SCALE 3 TIMES DIALY BEFORE MEALS. potassium chloride 20 mEq Tablet Extended Release 20 meq PO DAILY Changed midodrine 10 mg tablet 5 mg PO Q8H Qty: 1 0RF Rx Instructions: Dose change Discontinued insulin degludec 100 unit/mL (3 mL) insulin pen 20 unit SUBCUT .COMPLEX Rx Instructions: Inject 20 units now THEN 15 units AT BEDTIME. Discharge Order = DC NOW: Discharge Order (Routine); Ordered 02/12/25 Ordered By: Siddharth Charles Referrals: [facility] [place] [Outside] Steve Infante DO [Primary Care Provider, Internal Medicine] - 4-7 days Discharge Diet: Cardiac Discharge Activity: Oxygen as instructed Patient Instructions: Azithromycin (By mouth), Cefdinir (By mouth), Heart Failure (DC), CHF Stoplight, Opioid Safety, Patient Portal & Carlos Instructions Activity Restrictions/Additional Instructions: Continue oxygen 4 L/min by nasal cannula, wean down as tolerated. Target oxygen saturation 88-92%. Follow-up with primary provider for reassessment of severe pulmonary hypertension, congestive heart failure, pleural effusions, lower lung opacification. Continue to revisit goals of care. Consider hospice care services. Discharge Attestations Time Spent in Discharge Care*: greater than 30 min Quality Metrics Clinical Quality Measures [ No reported AMI, CVA or VTE this stay] Coding Level of Care Code 74679 Total time (in minutes) for Discharge: 45 Diagnoses Nonrheumatic tricuspid valve regurgitation I36.1 Cardiac valve disease etiology: nonrheumatic Acute on chronic diastolic heart failure I50.33 Heart failure chronicity: acute on chronic DNR (do not resuscitate) Z66 Pulmonary hypertension I27.20
[2025-02-12 14:40] LABS: Amylase, Pleural Fluid 11 U/L
[2025-02-12 14:53] LABS: SARS Covid-2 Antigen Negative (Negative)
--- NOTE | 2025-02-12 15:50 | PC.NURSE ---
Report called to [facility] at 0365. Awaiting their transport to pick pt up.
== END 2025-02-12 16:08 | disposition skilled nursing facility (03) | DRG 314 ==
LOC: ER 15:10 → ICU 16:26 → MEDSURG 02-11 13:37
PROVIDERS: Admitting Provider Internal Medicine; Emergency Provider Emergency Medicine; PCP Internal Medicine; Visit Provider Internal Medicine
DX: I27.21 Secondary pulmonary arterial hypertension (principal); I50.33 Acute on chronic diastolic (congestive) heart failure; J18.9 Pneumonia, unspecified organism; J96.01 Acute respiratory failure with hypoxia; I11.0 Hypertensive heart disease with heart failure; I07.1 Rheumatic tricuspid insufficiency; Z66 Do not resuscitate; I95.9 Hypotension, unspecified; I34.0 Nonrheumatic mitral (valve) insufficiency; E78.5 Hyperlipidemia, unspecified; E11.9 Type 2 diabetes mellitus without complications; K44.9 Diaphragmatic hernia without obstruction or gangrene; E03.9 Hypothyroidism, unspecified; Z79.4 Long term (current) use of insulin; Z79.82 Long term (current) use of aspirin
CPT/HCPCS: 32555; 36415; 36416; 51702; 71045; 71260; 71275; 74177; 80048; 80053; 80202; 80503; 81001; 82042; 82150; 82465; 82945; 82962; 83605; 83615; 83735; 83880; 83986; 84075; 84100; 84145; 84155; 84157; 84315; 84443; 84478; 84484; 84560; 85025; 86403; 87040; 87070; 87075; 87086; 87205; 87426; 87449; 88112; 88305; 89050; 93005; 93010; 93306; 94640; 94660; 94664; 96365; 96372; 96374; 96375; 96376; 97161; 97165; 97530; 99285; J0456; J0692; J0696; J1644; J1815; J1938; J2543; J3370; J3475; J7030; J7040; J7050; J7799; J9999; Q0144

== ENCOUNTER → 2025-05-23 15:20 | Outpatient (BNVA) | payer MEDICARE, MEDICAID, SELFPAY | PROVIDERS: PCP Internal Medicine; Visit Provider Orthopaedic Surgery | DX: S62.101A Fracture of unspecified carpal bone, right wrist, initial encounter for closed fracture (principal); V00.811A Fall from moving wheelchair (powered), initial encounter | CPT/HCPCS: 73110 ==

== ENCOUNTER 2025-05-23 15:54 | Outpatient (CLI) | payer MEDICARE, MEDICAID, SELFPAY | END 2025-05-23 15:55 | disposition home or self-care (01) | LOC: SOT 15:58 | PROVIDERS: PCP Internal Medicine; Visit Provider Orthopaedic Surgery | DX: S62.101A Fracture of unspecified carpal bone, right wrist, initial encounter for closed fracture (principal); V00.811A Fall from moving wheelchair (powered), initial encounter; Z46.89 Encounter for fitting and adjustment of other specified devices | CPT/HCPCS: 97760; 99203; L3923 ==

== ENCOUNTER 2025-05-29 12:10 | Outpatient (CLI) | payer MEDICARE, MEDICAID, SELFPAY ==
--- NOTE | 2025-05-29 16:00 | MRR_ITS ---
PROCEDURE INFORMATION: Exam: MR Right Upper Extremity Joint Without Contrast; Wrist Exam date and time: 05/29/2025 12:43 PM Age: 80 years old Clinical indication: Injury or trauma; Fall; Fracture, traumatic injury; Closed fracture; Right; Bone fracture not specified; Injury details: Fell off motorized wheelchair approx 6 weeks ago. RT wrist is immobilized. Still having pain; Additional info: Right wrist fracture TECHNIQUE: Imaging protocol: Magnetic resonance imaging of the right upper extremity without contrast. Exam focused on the wrist. COMPARISON: CR XR wrist RT min 3V* [id number] 05/23/2025 3:24 PM FINDINGS: This study is significantly degraded by patient motion artifact. Bones/joints: There is no fracture. There are small cysts within the proximal pole of the scaphoid and the lunate. There is a small cyst of the distal articular margin of the radiusThere is mild polyarticular degenerative osteophytosis throughout the wrist. Scapholunate ligament: . As was defined by radiograph there is widening of the scapholunate interval with a chronic appearing tear of the scapholunate ligament. Lunotriquetral ligament: Unremarkable. No tear. Triangular fibrocartilage complex: The triangular fibrocartilage is intact. Flexor compartment tendons: Unremarkable. No tear. Extensor compartment tendons: Unremarkable. No tear. Soft tissues: There is diffuse subcutaneous soft tissue edema throughout the distal forearm and wrist. MR/MR wrist RT wo con* [id number] IMPRESSION: 1. Diffuse soft tissue edema. 2. No MR evidence of definitive fracture. 3. Polyarticular degenerative osteoarthritis. 4. Chronic scapholunate ligament tear.
== END 2025-05-29 12:11 | disposition home or self-care (01) ==
LOC: RAD 12:10
PROVIDERS: PCP Internal Medicine; Visit Provider Orthopaedic Surgery
DX: S62.101A Fracture of unspecified carpal bone, right wrist, initial encounter for closed fracture (principal); X58.XXXA Exposure to other specified factors, initial encounter
CPT/HCPCS: 73221

== ENCOUNTER → 2025-06-06 15:38 | Outpatient (BNVA) | payer MEDICARE, MEDICAID, SELFPAY | PROVIDERS: PCP Internal Medicine; Visit Provider Orthopaedic Surgery | DX: M19.031 Primary osteoarthritis, right wrist (principal) | CPT/HCPCS: 99213 ==

== ENCOUNTER 2025-06-20 13:12 | Inpatient (IN) | payer MEDICARE, MEDICAID, SELFPAY ==
[2025-06-20] VITALS (14 sets, daily range): BP systolic 68–139; BP diastolic 57–96; PULSE 63–70; RESP 10–22; TEMP 36.3–36.5; O2SAT 90–94
--- NOTE | 2025-06-20 13:19 | XR_ITS ---
WS: [id number] Exam: XR chest 1V portable [id number] Date/Time of Exam: 06/20/2025 1:19 PM Reason For Exam: sob Comparison 02/10/2025. The lungs are fully inflated and clear. Cardiac enlargement unchanged. The mediastinum and bony thorax are unremarkable. High riding RIGHT humeral head most likely indicates chronic rotator cuff tear. XR/XR chest 1V portable [id number] IMPRESSION: 1. Cardiac enlargement unchanged. No acute process identified.
--- OUTSIDE RECORDS SUMMARY | 2025-06-20 13:22 | XMS_ITS | Patient Health Record ---
Author Organization [facility] Address [address] [place] [address] Care Team Providers Care Interactive Web Developer Name Role Phone Regan Kaur Primary Care Provider Kevin Boone Unavailable [phone] Allergies No Known Allergies Reason For Referral No Information Medications Medication SIG (Take, Route, Frequency, Duration) Notes Start Date End Date Status Bisacodyl 10 MG Suppository 1 suppositor y as needed Rectal as needed Active hydrALAZINE HCl 25 MG Tablet 1 tablet with food Orally Three times a day for HTN Active Atorvastatin Calcium 40 MG Tablet 1 tablet Orally Once a day Active Isosorbide Mononitrate ER 120 MG Tablet Extended Release 24 Hour 1 tablet in the morning Orally Once a day Active Vitamin B12 Active Tylenol 325 MG Tablet 1 tablet as needed Orally every 6 hrs Active Culturelle - Capsule as directed Orally Active Milk of Magnesia 400 MG/5ML Suspension 5 mL at least 4 hours between doses as needed Orally Once a day as needed Active Ferrous Sulfate 325 (65 Fe) MG Tablet 1 tablet Orally Twice a day Active Biofreeze Active Irbesartan-hydroCHLOROthiaz jonny 150-12.5 MG Tablet 1 tablet Orally Once a day Active Zofran Active Aspirin 325 MG Tablet 1 tablet Orally On ce a day Active Magnesium Glycinate Active Magnesium 400 MG Tablet 1 tablet Orally Four times a day Active Levothyroxine Sodium 112 MCG Tablet 1 tablet in the morning on an empty stomach Orally Once a day Active Pantoprazole Sodium 40 MG Tablet Delayed Release 1 tablet 1/2 to 1 hour before morning meal Orally Once a day Active Lasix 40 MG Tablet 1 tablet Orally Once a day Active Social History Tobacco Use: Social History Observation Description Date Details (start date - stop date) Current Smoker NA - NA Social History Drugs/Alcohol: Social Info Question Answer Notes Caffeine Intake: 1-2 cups per day Tobacco Use: Social Info Question Answer Notes Tobacco Control (Standard) Tobacco use: Current smoker How often do you smoke cigarettes? Every day How many cigarettes a day do you smoke? 6-10 Additional Details Category Social Info Options Details Drugs/Alcohol: Do you smoke marijuana? De nies Do you drink alcohol? No Problems Problem Type SNOMED Code ICD Code Onset Dates Problem Status W/U Status Risk Notes Problem Occlusion and stenosis of multiple and bilateral cerebral arteries (145530006) Carotid stenosis, bilateral (I65.23) Active confirmed Plan Of Treatment Future Test Test Name Order Date Blood Urea Nitrogen (BUN) [id number] 10/18/19 25 Creatinine (B) 08115 10/17/2024 CTA Head w/ + w/o Contrast-07321 025 CTA Neck w/ + w/o Contrast-15147 025 Insurance Providers Payer Name Payer Address Payer Phone Subscriber Number Group Number Insured Name Patient Relationship to Insured Coverage Start Date Coverage End Date [place] Medicare [address] [place] [id number] [id number] Natalie Marks Self - patient is the insured [place] Medicaid [address] [place] [address] [id number] Natalie Marks Self - patient is the insured Medical (General) History Medical History History ICD Code Hypertension Type 2 Diabetes Arthritis Surgical History Surgery Date(Month/Year) L foot surgery x3 Tonsilectomy
--- OUTSIDE RECORDS SUMMARY | 2025-06-20 13:23 | XMS_ITS | Data Portability ---
Author Organization [facility] Ralph Mcdaniel [facility] Address [address] [phone] Assessment No assessment recorded. Plan of Treatment Reminders Order Date Submit Date Provider Last Modified By Organization Details Last Modified Time Details Appointments [facility] VISIT 2024 08:10A M Steve Infante, DO Not available Not available Not available Lab None recorded . Referral None recorded . Procedures None recorded . Surgeries None recorded . Imaging None recorded . Medication Orders None recorded . Patient TargetsNo targets recorded. Patient Instructions Encounter Date Encounter Id Patient Instructions Last Modified By Organization Details Last Modified Time 04/04/2025 [id number] Blood pressure good. Offered dermatology referral for removal of SCC, but not interested. sugars reviewed, fasting controlled, postprandial too high start 4 units of aspart with meals plus sliding scale. [email or web address] Not available 04/04/2025 14:58:37 05/20/2025 [id number] planning to see ortho soon for old fracture. Sugars too low, will decrease tresiba to 5 unit at hs. Not available 05/20/2025 15:25:38 06/06/2025 [id number] Planning to see orto soon for arm. Doing well otherwise, sugars controlled. [email or web address] Not available 06/06/2025 15:17:21 Reason for Referral None Reported. Results Created Date Observation Date Name Description Value Unit Range Abnormal Flag Note LastModifiedBy Organization Detail LastModifiedTime 05/02/2005/01/2025 XR, hand, 2 view No observ ation record ed. [email or web address] [facility] [address], [place], [address], 05/14/2025 16:15:17 Result Notes None recorded. Problems Name Problem SNOMED Code Status Onset Date Resolution Date Notes Provider Name and Address Organization Details Recorded Time Hospital inpatient stay within past 30 days 2136111789606 Active 2024 [facility] 15:46:26 Multiple sclerosis 54832399 Active 2024 [facility] 15:46:27 Type 2 diabetes mellitus 92470414 Active 2024 [facility] 15:46:27 Edema of lower extremity 755972794 Active 2024 [facility] 14:38:29 Hypothyroi dism 61031316 Active 2024 [facility] 14:38:30 Pain 79459628 Active 2024 [facility] 11:50:17 Acute on chronic diastolic heart failure 243402976 Active 2024 [facility] 13:54:41 Tricuspid valve vegetation s 234645648 Active 2024 [facility] 13:54:56 Pulmonary hypertensi on 16858596 Active 2024 [facility] 13:55:06 Problem Notes None recorded. Medical Equipment None Reported. Medications Name Sig Start Date Stop Date Status Note LastModified by Organization Details LastModified Time tramadol 50 mg tablet Take 1 tablet every 8 hours by oral route as needed for 30 days. 2024 active Not Available Not Available Not Avai lable insulin degludec (U-100) 100 unit/mL (3 mL) subcutaneous pen inject 20 units now THEN 15 units AT BEDTIME active Not Available Not Available No t Available Vitals Date Recorded Respiratory rate Heart rate Oxygen saturation Oxygen saturation in Arterial blood by Pulse oximetry Systolic And Diastolic Provider Name and Address Organization Details Last Updated DateTime 5 20 /min 68 /min 89 % 89 % 152/74 mm[Hg] [facility] 5 14:49:56 Date Recorded Body weight Heart rate Respiratory rate Body temperature Oxygen saturation Oxygen saturation in Arterial blood by Pulse oximetry Systolic And Diastolic Provider Name and Address Organization Details Last Updated DateTime 5 58423.7 9 g 76 /min 18 /min 97.4 [degF] 98 % 98 % 130/60 mm[Hg] [facility] 5 15:15:54 Date Recorded Body weight Heart rate Respiratory rate Body temperature Oxygen saturation Oxygen saturation in Arterial blood by Pulse oximetry Systolic And Diastolic Provider Name and Address Organization Details Last Updated DateTime 5 88372.0 8 g 70 /min 20 /min 97.6 [degF] 92 % 92 % 118/62 mm[Hg] [facility] 5 11:35:51 Social History None recorded. Functional Status None recorded. Mental Status None recorded. Family History Nothing Reported. Medical History No medical history recorded. Gynecological HistoryNo gynecological history recorded. Obstetrics History GPAL:G 0 P 0 0 0 0 Immunizations Vaccine Type Date Status Note Provider Nam e and Address Organization Details Recorded Time Pneumococcal conjugate PCV 13 5 completed Not Available [facility] 06/20/2025 11:20:06 zoster live 6 completed Not Available [facility] 06/20/2025 11:20:06 pneumococcal polysaccharide PPV23 6 completed Not Available [facility] 06/20/2025 11:20:06 COVID-19, mRNA, LNP-S, PF, 100 mcg/0.5mL dose or 50 mcg/0.25mL dose 1 completed Not Available [facility] 06/20/2025 11:20:06 COVID-19, mRNA, LNP-S, PF, 100 mcg/0.5mL dose or 50 mcg/0.25mL dose 1 completed Not Available [facility] 06/20/2025 11:20:06 COVID-19, mRNA, LNP-S, PF, 100 mcg/0.5mL dose or 50 mcg/0.25mL dose 2 completed Not Available [facility] 06/20/2025 11:20:06 COVID-19, mRNA, LNP-S, bivalent, PF, 50 mcg/0.5 mL or 25mcg/0.25 mL dose 2 completed Not Available [facility] 06/20/2025 11:20:06 Past Encounters Encounter ID Performer Location Encounter Start Date Encounter Closed Date Diagnosis/Indication Diagnosis SNOMED-CT Code Diagnosis ICD10 Code Diagnosis IMO Codes Diagnosis Note [id number] Stvee Infante [facility]) [address] [place] [address] 5 08/20/2024 13:41:00 08/23/2024 12:16:29 Hospital inpatient stay within past 30 days 7442953671 106 Z76.89 Multiple sclerosis 92281 007 G35 Type 2 franklyn betes mellitus 06014495 E11.65 [id number] Steve Infante [facility]) [address] [place] [phone] 5 11/12/2024 08:01:55 11/13/2024 21:45:41 Multiple sclerosis 10031400 G35 Type 2 franklyn betes mellitus 49493872 E11.65 [id number] Steve Infante [facility]) [address] [place] [phone] 5 01/07/2025 15:16:20 01/08/2025 16:07:12 Multiple sclerosis 26232448 G35 Type 2 franklyn betes mellitus 73518696 E11.65 [id number] Steve Infante [facility]) [address] [place] [phone] 5 01/21/2025 14:17:12 01/28/2025 17:52:55 Edema of lower extremity 616712517 R60.0 11820 [facility] 03673324 E03.9 [id number] Multiple sclerosis 83506 007 G35 [id number] Steve Infante DO [facility] [address] [place] [address] 5 02/18/2025 10:04:43 02/20/2025 08:51:55 Hospital inpatient stay within past 30 days 4070384102 106 Z76.89 Acute on c hronic diastolic heart failure 267680894 I50.33 735967 Tricuspid valve vegetations 170398255 I33.0 177987 Pulmonary hypertension 58496907 I27.20 4052 [facility] 5136220 K29.70 [id number] Steve Infante DO [facility] ([facility]) [address] [place] [address] 5 03/28/2025 11:34:45 04/11/2025 07:39:32 [id number] Steve Infante DO [facility] ([facility]) [address] [place] [address] 5 04/04/2025 14:23:52 04/09/2025 16:32:53 Edema of lower extremity 519477678 R60.0 49370 Multiple sclerosis 96004 007 G35 Type 2 franklyn betes mellitus 61022845 E11.65 Squamous c ell carcinoma of skin 354849222 C44.92 54291 left arm [id number] Steve Infante DO [facility]) [address] [place] [address] 5 05/20/2025 13:31:15 05/22/2025 09:44:29 Multiple sclerosis 52366258 G35.D 13191 Pain 47989334 R52 781930 Type 2 franklyn betes mellitus 65951280 E11.65 Pulmonary hypertension 35682148 I27.20 4052 [id number] Steve Infante DO [facility]) [address] [place] [address] 5 06/06/2025 14:10:22 06/11/2025 11:40:03 Multiple sclerosis 49726597 G35.D Type 2 franklyn betes mellitus 34638127 E11.65 Acute on c hronic diastolic heart failure 155348127 I50.33 260611 Health Concerns Section Related Observation LastModified by Organization Detai ls LastModified Time None Recorded Concern Status LastModified by Organization Details LastModified Time None Recorded Advance Directives Directive None Recorded Payers Insurance Date Sequence Insurance Name Policy Number Policy Blanco Covered Member ID Blanco Member ID Guarantor Name 06/20/2025 1 [place] Natalie Marks [id number] Natalie Brumfieldavril 06/08/2025 2 [place] Natalie Brumfieldavril [id number] Natalie Brumfieldavril 06/20/2025 [place] - [id number] (MEDICARE) Natalie Brumfieldavril [id number] Natalie Brumfieldavril Notes Date Note Type Note Provider Name and Address Organization Details Recorded Time 03/28/2025 text/html did not see. Steve Infante DO [address] [place] [address], [phone], [facility] 04/10/2025 15:55:29 04/04/2025 text/html Care Management - GeneralReported by PatientIFor prognosis, patient reportsexpected outcome: stabilizeandprognosis : moderate. For lifestyle changes, patient reportsmotivated to continue lifestyle changes.ROS as noted in the HPI no complaints per staff or patient. Steve Infante DO [address] [place] [address], [phone], [facility] 04/07/2025 13:51:41 05/20/2025 text/html Care Management - GeneralReported by PatientIFor prognosis, patient reportsexpected outcome: stabilizeandprognosis : moderate. For lifestyle changes, patient reportsmotivated to continue lifestyle changes.ROS as noted in the HPI no complaints per staff or patient. Steve Infante DO [address] [place] [address], [phone], [facility] 05/20/2025 15:25:59 06/06/2025 text/html Care Management - GeneralReported by PatientIFor prognosis, patient reportsexpected outcome: stabilizeandprognosis : moderate. For lifestyle changes, patient reportsmotivated to continue lifestyle changes.ROS as noted in the HPI no complaints per staff or patient. Steve Infante, DO [address] [place] [address], [phone], [facility] 06/07/2025 16:37:43 06/20/2025 text/html Care Management - GeneralReported by PatientHPIFor prognosis, patient reportsexpected outcome: stabilizeandprognosis : moderate. For lifestyle changes, patient reportsmotivated to continue lifestyle changes.ROS as noted in the HPI not feeling well, sob, nauseated. Weak Not Available Not Available Not Available OBGyn Episode No OBEpisode recorded.
--- NOTE | 2025-06-20 13:24 | ED_ITS ---
HPI - SOB/Dyspnea 2 General: Chief Complaint: Shortness of Breath/Dyspnea Stated Complaint: left arm pain - difficulty breathing Time Seen by Provider: 06/20/25 13:15 Source: patient and EMS Mode of arrival: EMS History of Present Illness: HPI Narrative: 80-year-old female who is here from [facility] home with complaint of shortness of breath today patient has extensive history including pulmonary hypertension CHF is on 3 L oxygen at baseline per EMS nurse him states she was desaturating into the 80s here she is 92% on 3 L. Patient states that she has had some mild dyspnea states she has pain a very rare that is chronic. Related Data Home Medications ?Medication ?Instructions ?Recorded ?Confirmed Lactobacillus rhamnosus GG 10 1 cap PO DAILY PRN when on 08/11/24 06/06/25 billion cell capsule (Culturelle) antibiotics acetaminophen 325 mg tablet 650 mg PO QID PRN pain or fever 08/11/24 06/06/25 (Tylenol) bisacodyl 10 mg rectal suppository 10 mg NM DAILY PRN constipation 08/11/24 06/06/25 camphor-menthol 0.2 %-3.5 % 1 applic topical TID PRN M USCLE 08/11/24 06/06/25 topical gel SPASM magnesium hydroxide 400 mg/5 mL 30 ml PO DAILY PRN Con stipation 08/11/24 06/06/25 oral suspension (Milk of Magnesia) ondansetron HCl 4 mg tablet 4 mg PO Q6H PRN Nausea And Vomiting 08/11/24 06/06/25 pantoprazole 40 mg tablet,delayed 40 mg PO DAILY 08/1106/06/25 release sodium phosphates 19 gram-7 118 ml NM DAILY PRN Consti pation 08/11/24 06/06/25 gram/118 mL enema (Fleet Enema) aspirin 81 mg tablet,delayed 81 mg PO DAILY 02/05/25 1 release bumetanide 2 mg tablet 2 mg PO BID 02/05/25 5 insulin aspart U-100 100 unit/mL See Rx Instructions . Route .COMPLEX 02/05/25 06/06/25 (3 mL) subcutaneous pen levothyroxine 100 mcg tablet 100 mcg PO DAILY 02/05/25 06/06/25 potassium chloride 20 mEq 20 meq PO DAILY 02/05/25 tablet,extended release tramadol 50 mg tablet 50 mg PO Q8H PRN Moderate Pa in 02/05/25 06/06/25 (Scale Score 5-6) Previous Rx's ?Medication ?Instructions ?Recorded azithromycin 250 mg tablet 500 mg (2 x 250 mg) PO MARY Y #8 02/12/25 tabs midodrine 10 mg tablet 5 mg (1/2 x 10 mg) PO Q8H #1 tab 02/12/25 right wrist brace #1 ea 05/23/25 arm brace #1 ea 06/06/25 Allergies Allergy/AdvReac Type Severity Reaction Status Date / Time propoxyphene (From AdvReac Unknown Verified 06/20/25 13:23 Azucena-Justino) Review of Systems 2 Resp: Reports: dyspnea PFSH ED 2 PFSH: Medical History (Updated 06/20/25 @ 15:23 by Heriberto Velarde MD) HTN (hypertension) Carotid stenosis Tricuspid regurgitation Diabetes Hypothyroidism Polio Surgical History Hx of cataract surgery Hx of hernia repair Hx of section Family History Other Diabetes Social History Smoking and tobacco/nicotine status: former use of tobacco/nicotine Alcohol intake: current Alcohol intake frequency: other Substance/Drug Use: never Physical Exam 2 Const: COMMON NORMALS: patient oriented x3 HENMT: COMMON NORMALS: normocephalic and atraumatic HEAD & SCALP: n ormocephalic and atraumatic Eye: COMMON NORMALS: Equal, round and reactive pupils present and EOMs intact bilaterally PUPIL: Yes Equal, round and reactive pupils present Neck/C-Spine: COMMON NORMALS: full ROM and supple Chest: COMMONS NORMALS: normal inspection of the chest and normal palpation of entire chest wall Resp: COMMON NORMALS: normal respiratory effort, No retractions, No use of accessory muscles and clear to auscultation bilaterally AUSCULTATION: clear to auscultation bilaterally Cardio: COMMON NORMALS: regular rate, regular rhythm and No murmurs present (Cardio) RATE: regular rate RHYTHM: regular rhythm GI: COMMON NORMALS: Normal to inspection, nondistended, normoactive bowel sounds present, Soft to palpation, non-tender and no masses PALPATION: Yes Soft to palpation Extremity: COMMON NORMALS: normal to inspection and full ROM Neuro: COMMON NORMALS: patient oriented x3, moves all extremities and no focal motor deficits Psych: COMMON NORMALS: mental status grossly normal, Normal thought process present and cooperative THOUGHT PROCESS: Normal thought process present Skin: COMMON NORMALS: no rashes or lesions noted and no wounds GENERAL SKIN EXAM: no rashes or lesions noted Course 2 Vital Signs: Vital signs: Vital Signs Temperature 97.4 F L 06/20/25 13:14 Pulse Rate 67 06/20/25 15:00 Respiratory Rate 16 06/20/25 15:00 Blood Pressure 100/78 06/20/25 15:00 Pulse Oximetry 91 06/20/25 15:00 Oxygen Delivery Me thod Nasal Cannula 06/20/25 13:14 Oxygen Flow Rate 3 06/20/25 13:14 MDM - SOB/Dyspnea Medical Decision Making 80-year-old female with multiple comorbidities presents here with increasing shortness of breath from the assisted requiring 4 to 5 L of oxygen. Patient here has multiple significant lab abnormalities including an elevated white count hyperkalemia with potassium 6.7 does have an elevated lactate as well. Patient has labs and vitals consistent with sepsis she has had no hypotension with no signs of septic shock. Did give her sepsis fluid bolus and gave her dose of IV Rocephin and azithromycin. Patient was also found to be in acute kidney injury with hyperkalemia with potassium of 6.7 did give her 10 units of insulin, 1 g of calcium gluconate, D10 bolus. She also has elevated bilirubin and liver enzymes did chest abdomen and pelvis CT which showed pleural effusions. I did have an extensive conversation with patient and daughter patient is currently DNR/DNI. I did inform her that she has a acute kidney injury and asked them if they wanted further treatment they stated that they do not want dialysis I informed him of her liver enzymes and possibility of a sending cholangitis they stated they would not want to be transferred for an ERCP and would not want any surgeries. At this time family and patient states they just want medical management with IV antibiotics and to see how she does and if she has any worsening likely will place her on hospice. I did speak to hospitalist Dr. Larios and will admit to medical floor at this time. critical care time 45 min The high probability of a clinically significant, sudden or life threatening deterioration of the patient's respsystem(s) required my full and direct attention, intervention and personal management. The critical care time is as shown. This time is in addition to time spent performing any reported procedures but includes the following: [x] Data and vital sign review and interpretation [x] Patient assessment, examination and intervention [x] Documentation [x] Medication orders and management Medical Records I reviewed the patient's medical records. Lab Data I reviewed the patient's lab results. 06/20/25 13:36 06/20/25 13:36 Labs/Radiology: Radiology Impressions Chest X-Ray 06/20/25 13:19 IMPRESSION: 1. Cardiac enlargement unchanged. No acute process identified. Chest/Abdomen/Pelvis CT 06/20/25 13:47 IMPRESSION: 1. Extremely limited evaluation of the chest, abdomen and pelvis without IV contrast. 2. Small bilateral pleural effusions with compressive atelectasis at the lung bases. 3. Hiatal hernia. 4. Cardiomegaly. 5. Diffuse soft tissue anasarca and edema throughout the chest, abdomen and pelvis. 6. Bilateral renal calcifications. No obstruction is evident. 7. Small amount of free fluid in the pelvis. 8. Gallbladder is very poorly visualized. Visceral organs of the abdomen are poorly visualized. 9. Dense plaque within the abdominal aorta. Suspect high-grade if not near complete occlusion of the aorta. 10. No ischemic changes in the GI tract. Laboratory Results WBC 24.58 10^3/uL (3.29-11.43) H 06/20/25 13:36 RBC 4.80 10^6/uL (3.85-5.65) 06/20/25 13:36 Hgb 12.00 g/dL (11.27-16.99) 06/20/25 13:36 Hct 39.3 % (36-47) 06/20/25 13:36 MCV 81.9 fl (85-98) L 06/20/25 13:36 MCH 25.0 pg (27-33) L 06/20/25 13:36 MCHC 30.5 g/dL (30-55) 06/20/25 13:36 RDW 19.4 % (12.1-15.1) H 06/20/25 13:36 Plt Count 315 10^3/cmm (157-399) 06/20/25 13:36 MPV 10.2 fL (7.4-10.4) 06/20/25 13:36 Neut % (Auto) 90.8 % 06/20/25 13:36 Lymph % (Auto) 2.1 % 06/20/25 13:36 Payne % (Auto) 5.5 % 06/20/25 13:36 Eos % (Auto) 0.0 % 06/20/25 13:36 Baso % (Auto) 0.1 % 06/20/25 13:36 Neut # (Auto) 22.29 10^3/uL (1.8-7.7) H 06/20/25 13:36 Lymph # (Auto) 0.5 10^3/uL (0.8-4.8) L 06/20/25 13:36 Payne # (Auto) 1.4 10^3/uL (0.2-0.9) H 06/20/25 13:36 Eos # (Auto) 0.0 10^3/uL (0.0-0.8) 06/20/25 13:36 Baso # (Auto) 0.0 10^3/uL (0.0-0.1) 06/20/25 13:36 Nucleated RBC % (auto) 0.3 % 06/20/25 13:36 Nucleated RBCs # 0.1 /100WBC 06/20/25 13:36 Sodium 138 mmol/L (136-145) 06/20/25 13:36 Potassium 6.7 mmol/L (3.5-5.1) H* 06/20/25 13:36 Chloride 98 mmol/L (98-107) 06/20/25 13:36 Carbon Dioxide 18 mmol/L (22-29) L 06/20/25 13:36 Anion Gap 28.7 (5-19) H 06/20/25 13:36 BUN 79 mg/dL (8-23) H 06/20/25 13:36 Creatinine 2.3 mg/dL (0.5-0.9) H 06/20/25 13:36 GFR Calculation Not Reportable 06/20/25 13:36 Glucose 82 mg/dL (65-115) 06/20/25 13:36 Calculated Osmolality 309 mOsm/kg (285-295) H 06/20/25 13:36 Lactic Acid 4.3 mmol/L (0.5-2.2) H* 06/20/25 13:36 Calcium 8.7 mg/dL (8.5-10.5) 06/20/25 13:36 Total Bilirubin 2.3 mg/dL (0.15-1.2) H 06/20/25 13:36 AST 2124 U/L (0-32) H 06/20/25 13:36 ALT 862 U/L (0-33) H 06/20/25 13:36 Alkaline Phosphatase 412 U/L (35-105) H 06/20/25 13:36 NT-Pro-B Natriuret Pep 53763 pg/mL (0-450) H 06/20/25 13:36 Total Protein 6.3 g/dL (6.6-8.7) L 06/20/25 13:36 Albumin 2.9 g/dL (3.5-5.2) L 06/20/25 13:36 Globulin 3.4 g/dL (1.3-4.6) 06/20/25 13:36 Urine Color Dark yellow (Yellow) A 06/20/25 14:08 Urine Appearance Clear (CLEAR) 06/20/25 14:08 Urine pH 5.5 (5-7) 06/20/25 14:08 Ur Specific [place] 1.016 (1.005-1.030) 06/20/25 14:08 Urine Protein 3+ (Negative) A 06/20/25 14:08 Urine Glucose (UA) Negative (Normal) 06/20/25 14:08 Urine Ketones Trace (Negative) 06/20/25 14:08 Urine Blood 2+ (Negative) A 06/20/25 14:08 Urine Nitrate Negative (Negative) 06/20/25 14:08 Urine Bilirubin 1+ (Negative) H 06/20/25 14:08 Urine Urobilinogen 1.0 mg/dL (Negative) 06/20/25 14:08 Ur Leukocyte Esterase 1+ (Negative) A 06/20/25 14:08 Urine RBC 11-20 /hpf (0-2) H 06/20/25 14:08 Urine WBC 21-50 /hpf (0-5) H 06/20/25 14:08 Ur Squamous Epith Cells 0-5 /hpf (0-5) 06/20/25 14:08 Amorphous Sediment Not Reportable 06/20/25 14:08 Urine Bacteria 4+ /hpf (NONE) H 06/20/25 14:08 Hyaline Casts 24.82 /lpf 06/20/25 14:08 All radiology interpretation(s) finalized by discharge EKG Data EKG 1: I personally reviewed and interpreted this EKG as follows: EKG Interpretation Date: 06/20/25 EKG interpretation time: 13:27 Interpretation: hr [address] elevation qrs 161 qtc 466 Critical Care Time 2 Critical Care Time: Critical Care Time: Yes Total Critical Care Time: 45 Attestation: The high probability of a clinically significant, sudden or life threatening deterioration of the patient's respsystem(s) required my full and direct attention, intervention and personal management. The critical care time is as shown. This time is in addition to time spent performing any reported procedures but includes the following: [x] Data and vital sign review and interpretation [x] Patient assessment, examination and intervention [x] Documentation [x] Medication orders and management Discharge Plan Discharge Patient Disposition: Admitted As Inpatient Clinical Impression: Acute respiratory failure with hypoxemia, Sepsis, Pleural effusion, Acute cystitis, Acute hyperkalemia, Acute kidney injury Condition: Stable Coding Level of Care Code ED Motor Generator Set Operator for Lopez Gonzalez
--- NOTE | 2025-06-20 13:27 | ECG_ITS ---
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 Measurements Intervals [place] Rate: 67 P: 0 SD: 0 QRS: -21 QRSD: 161 T: 29 QT: 451 QTc: 477 Interpretive Statements ACCELERATED JUNCTIONAL RHYTHM INDETERMINATE AXIS RIGHT BUNDLE BRANCH BLOCK [120+ ms QRS DURATION, UPRIGHT V1, 40+ ms S IN I/aVL/V4/V5/V6] POSSIBLE ANTERIOR MYOCARDIAL INFARCTION , PROBABLY OLD [30 ms Q WAVE IN V3/V4, OR R < 0.2 mV IN V4] Compared to ECG 02/08/2025 10:01:52 Indeterminate axis now present Myocardial infarct finding now present T-wave abnormality no longer present Possible ischemia no longer present Electronically Signed On 06-21-2025 13:08:25 WAD PRINTING MACHINE OPERATOR by Walter Hewitt M.D. [email or web address]
[2025-06-20 13:44] LABS: Hematocrit 39.3 % (36-47); Hemoglobin 12.00 g/dL (11.27-16.99); Mean Corpuscular HGB Conc 30.5 g/dL (30-55); Mean Corpuscular Hemoglobin 25.0 pg (27-33); Mean Corpuscular Volume 81.9 fl (85-98); Nucleated Red Blood Cells % 0.3 %; Platelet Count 315 10^3/cmm (157-399); Red Blood Count 4.80 10^6/uL (3.85-5.65); White Blood Count 24.58 10^3/uL (3.29-11.43)
--- NOTE | 2025-06-20 13:47 | CT_ITS ---
WS: [id number] CT CHEST, ABDOMEN AND PELVIS NONCONTRAST HISTORY: sob TECHNIQUE: Contiguous 5 mm axial imaging performed through the chest, abdomen and pelvis without IV contrast, oral contrast has not been provided. Coronal and sagittal reformats chest. Coronal and sagittal reformats through the abdomen and pelvis. All CT scans at [facility] use at least one of these dose optimization techniques: automated exposure control; mA and/or kV adjustment per patient size (includes targeted exams where dose is matched to clinical indication); or iterative reconstruction. CONTRAST: None DLP: 643.59 mGy.cm COMPARISON: 02/08/[address]: Marked cardiomegaly. Large amount of mitral annular valve calcification. Severe atherosclerosis within the thoracic aorta and great vessels. Coronary artery calcifications. Small bilateral pleural effusions with compressive atelectasis. Lungs are slightly hyperinflated. No pneumothorax or mass identified. There is air noted in the vessels of the neck. This is probably from the IV insertion. There is diffuse soft tissue edema and anasarca. Hiatal hernia is identified. Abdomen CT: Extensive artifact through the lower thorax and chest by patient's arms. Liver, spleen and pancreas and kidneys are not well visualized due to motion and lack of contrast. Poorly visualized gallbladder. There is extensive calcification within the aorta and mesenteric arteries. High-grade stenosis with near complete occlusion of the abdominal aorta. Heavy calcifications continue into the iliac arteries. Kidneys do not appear to be obstructed. No GI tract obstruction. No ischemia is a definitely identified on this noncontrast exam. Pelvic CT: Urinary bladder is not well distended. Fibroid uterus. Small amount of free fluid in the pelvis. Diffuse soft tissue anasarca. Advanced degenerative changes in the spine. Bones are severely osteopenic. There are sclerotic and lytic changes throughout the spine. These changes have been present on prior studies and probably related to aging and osteopenia. No cortical breaks to suggest ongoing neoplastic process. CT/[place] [id number] IMPRESSION: 1. Extremely limited evaluation of the chest, abdomen and pelvis without IV co ntrast. 2. Small bilateral pleural effusions with compressive atelectasis at the lung bases. 3. Hiatal hernia. 4. Cardiomegaly. 5. Diffuse soft tissue anasarca and edema throughout the chest, abdomen and pe lvis. 6. Bilateral renal calcifications. No obstruction is evident. 7. Small amount of free fluid in the pelvis. 8. Gallbladder is very poorly visualized. Visceral organs of the abdomen are p oorly visualized. 9. Dense plaque within the abdominal aorta. Suspect high-grade if not near com plete occlusion of the aorta. 10. No ischemic changes in the GI tract.
[2025-06-20 14:06] LABS: Lactic Sepsis W/Reflex 4.3 mmol/L (0.5-2.2)
[2025-06-20 14:16] LABS: Albumin Level 2.9 g/dL (3.5-5.2); Alkaline Phosphatase 412 U/L (35-105); Anion Gap 28.7 (5-19); Blood Urea Nitrogen 79 mg/dL (8-23); Calcium 8.7 mg/dL (8.5-10.5); Carbon Dioxide 18 mmol/L (22-29); Chloride 98 mmol/L (98-107); Globulin 3.4 g/dL (1.3-4.6); Glucose 82 mg/dL (65-115); Osmolality Calculated 309 mOsm/kg (285-295); Sodium 138 mmol/L (136-145); Total Protein 6.3 g/dL (6.6-8.7)
[2025-06-20 14:22] LABS: Glucose Urine UA Negative (Normal); Nitrate Urine Negative (Negative); Specific Gravity, Urine 1.016 (1.005-1.030)
[2025-06-20 14:24] LABS: Add Urine Microscopic? YES
[2025-06-20 14:24] LABS: Potassium 6.7 mmol/L (3.5-5.1)
[2025-06-20] MEDS: cefTRIAXone 1,000 mg SDV 1000 MG IVP (14:25)
[2025-06-20 14:37] LABS: Alanine Aminotransferase 862 U/L (0-33)
[2025-06-20 14:40] LABS: Aspartate Amino Transferase 2124 U/L (0-32)
[2025-06-20 14:52] LABS: UA Slide Review UA Slide Review Perf
[2025-06-20] MEDS: calcium gluconate 0.1 gm/mL 10% SDV 10mL 1 GM IVP (15:08)
[2025-06-20] MEDS: morphine 4 mg/mL SDV 1 mL IVP (15:43)
[2025-06-20] MEDS: ondansetron 2 mg/ML SDV 2 mL 4 MG IVP (15:43)
[2025-06-20] MEDS: insulin regular-human 100 units/1 mL 8 UNIT IVP (15:44)
[2025-06-20 15:48] LABS: Reflex Lactate Order REFLEX LACTIC ORDERD
--- NOTE | 2025-06-20 16:03 | P.HP_ITS ---
Documented by User: Malinda Cazares NP 06/20/25 19:01 Providers/Chief Complaint 2 Admitting Physician: Mainor Larios MD Primary Care Provider: Steve Infante DO Chief Complaint: left arm pain - difficulty breathing History of Present Illness Natalie Marks is a 80 year old female with past medical history of pulmonary HTN, CHF, carotid stenosis, diabetes, hypothyroidism, came into the ED via ambulance from [facility] today for complaints of increased SOB, and abd pain. Patient will be admitted to hospitalist services for further management of care. Patient resting in bed on 4L NC, no family members present at bedside during evaluation. Patient reports shortness of breath, abdominal pain and nausea. Evaluation limited due to patient decreased level of consciousness, and no family members present. [facility] and [facility] reported patient started feeling ill 06/20/25 complaining of increased shortness of breath, abdominal pain, nausea, as well as refusal of meals. Patient also was noted to have spiked a fever of 101 F around 1200 06/19/25. Later this morning around 1040 patient became more short of breath, O2 satting 82 to 86% on baseline 3 L nasal cannula oxygen-EMS called at this time. Zofran, and tramadol were used as alleviating factors for nausea and pain early this morning at 0450. Patient is current smoker. Contacted [facility], regarding plan of care and states that Natalie is normally A&Ox3. DNR code status confirmed and patient's does not want aggressive treatment, if patient remains in this state family would like to transition to hospice care. Family plans to fly in by Tuesday, extended family will arrive at the hospital tomorrow. While in ED a CBC, CMP were collected and resulted as follows: WBC 24.6, Neutophils 22.3, K+ 6.7, Anion Gap 28.7, BUN 79, [employer] 2.3, Lactic Acid 4.3, bilirubin 2.3, AST 2124, ALT 862, Alkaline phos 412, BNP 30332. UA as follows: urine bacteria 4+, urine wbc 21-50, urine leukocyte esterase 1+, urine bilirubin 1+, urine rbc 11-20. While in ED pt received the following medications: Sepsis NS bolus 1.75L, azithromycin, Rocephin, 8 units IV push regular insulin, D10 W, 1 g IV push calcium gluconate, Zofran 4 mg, morphine 4 mg, albuterol sulfate 10 mg x2. Blood cultures, Urine culture obtained and pending Review of Systems 2 General: Reports: ROS unobtainable due to mental status Medications/Allergies Home Medications ?Medication ?Instructions ?Recorded ?Confirmed ?Last Taken ?Type Lactobacillus rhamnosus GG 10 1 cap PO DAILY PRN when on 08/11/24 06/20/25 Unknown History billion cell capsule (Culturelle) antibiotics acetaminophen 325 mg tablet 650 mg PO QID PRN pain or fever 08/11/24 06/20/25 Unknown History (Tylenol) bisacodyl 10 mg rectal suppository 10 mg RI DAILY PRN constipation 08/11/24 06/20/25 06/20/25 08:00 History camphor-menthol 0.2 %-3.5 % 1 applic topical TID PRN M USCLE 08/11/24 06/20/25 08/09/24 History topical gel SPASM magnesium hydroxide 400 mg/5 mL 30 ml PO DAILY PRN Con stipation 08/11/24 06/20/25 Unknown History oral suspension (Milk of Magnesia) ondansetron HCl 4 mg tablet 4 mg PO Q6H PRN Nausea And Vomiting 08/11/24 06/20/25 Unknown History pantoprazole 40 mg tablet,delayed 40 mg PO DAILY 08/1106/20/25 06/20/25 08:00 History release sodium phosphates 19 gram-7 118 ml RI DAILY PRN Consti pation 08/11/24 06/20/25 Unknown History gram/118 mL enema (Fleet Enema) aspirin 81 mg tablet,delayed 81 mg PO DAILY 02/05/25 1 08/20/24 06/20/25 07:00 History release bumetanide 2 mg tablet 2 mg PO BID 02/05/25 5 06/20/25 07:00 History insulin aspart U-100 100 unit/mL See Rx Instructions . Route .COMPLEX 02/05/25 06/20/25 06/19/25 History (3 mL) subcutaneous pen levothyroxine 100 mcg tablet 100 mcg PO DAILY 02/05/25 06/20/25 06/20/25 06:30 History potassium chloride 20 mEq 20 meq PO DAILY 02/05/2506/20/25 08:00 History tablet,extended release tramadol 50 mg tablet 50 mg PO Q8H PRN Moderate Pa in 02/05/25 06/20/25 Unknown History (Scale Score 5-6) right wrist brace #1 ea 05/23/25 06/20/25 Unkn own Rx arm brace #1 ea 06/06/25 06/20/25 Unkn own Rx insulin degludec 100 unit/mL (3 8 unit SUBCUT BEDTIME 06/20/25 06/20/25 06/19/25 20:00 History mL) subcutaneous pen Allergies Allergy/AdvReac Type Severity Reaction Status Date / Time propoxyphene (From AdvReac Unknown Verified 06/20/25 13:23 Darvocet-N) PFSH Acute 2 PFSH: Medical History (Updated 06/20/25 @ 17:45 by Malinda Cazares NP) HTN (hypertension) Carotid stenosis Tricuspid regurgitation Diabetes Hypothyroidism Polio Surgical History Hx of cataract surgery Hx of hernia repair Hx of section Family History Other Diabetes Social History Smoking and tobacco/nicotine status: former use of tobacco/nicotine Alcohol intake: current Alcohol intake frequency: other Substance/Drug Use: never Vitals/I&O/Wt Last Vital Signs Temp 97.4 F L 06/20/25 13:14 Pulse 70 06/20/25 16:00 Resp 16 06/20/25 16:00 BP 89/62 06/20/25 16:00 Pulse Ox 94 06/20/25 16:00 O2 Del Method Nasal Cannula 06/20/25 13:14 O2 Flow Rate 3 06/20/25 13:14 06/20/25 06/20/25 06/20/25 06:59 14:59 22:59 Intake Total 0 / 0 Balance 0 / 0 Weight last 48 hrs Weight 51.256 kg Physical Exam 2 Const: COMMON NORMALS: negative for patient oriented x3 and negative for alert HENMT: COMMON NORMALS: normocephalic; oral mucous membranes not moist Eye: COMMON NORMALS: Equal, round and reactive pupils present Lymph: LYMPHATIC: no lymphadenopathy noted Resp: AUSCULTATION: other (diminished bilateral breath sounds) Cardio: COMMON NORMALS: regular rate and regular rhythm PERIPHERAL PULSES: Peripheral pulses 2+ throughout GI: COMMON NORMALS: Normal to inspection, nondistended, normoactive bowel sounds present, Soft to palpation and non-tender : SPECULUM EXAM - VAGINA: Yes other (Serosanguineous vaginal drainage) Extremity: OTHER: bilateral muscle atrophy Neuro: COMMON NORMALS: CN's II-XII intact bilaterally; negative for patient oriented x3 Data 06/20/25 13:36 06/20/25 18:03 Other Labs: Chest X-ray 06/20/25 IMPRESSION: 1. Cardiac enlargement unchanged. No acute process identified Chest/Abd/pelvis CT 06/20/25 IMPRESSION: 1. Extremely limited evaluation of the chest, abdomen and pelvis without IV contrast. 2. Small bilateral pleural effusions with compressive atelectasis at the lung bases. 3. Hiatal hernia. 4. Cardiomegaly. 5. Diffuse soft tissue anasarca and edema throughout the chest, abdomen and pelvis. 6. Bilateral renal calcifications. No obstruction is evident. 7. Small amount of free fluid in the pelvis. 8. Gallbladder is very poorly visualized. Visceral organs of the abdomen are poorly visualized. 9. Dense plaque within the abdominal aorta. Suspect high-grade if not near complete occlusion of the aorta. 10. No ischemic changes in the GI tract. A&P Assessment and plan 1. Acute on chronic diastolic heart failure: 2. UTI (urinary tract infection): 3. Transaminitis: 4. Acute hyperkalemia: 5. Diabetes: 6. Acute kidney injury: 7. Hypothyroidism: Plan: Acute UTI POA Sepsis Metabolic encephalopathy - Lactic acid 4.3--<4.9, pending repeat - blood cultures, urine cultures pending - UA: urine bacteria 4+, urine wbc 21-50, urine leukocyte esterase 1+, urine bilirubin 1+, urine rbc 11-20 - Sepsis bolus protocol given in ED - Hypotension, holding medications and confiding supportive measures - Rocephin, azithromycin administered, continue - NPO, due to decreased LOC - Family would like palliative interventions and will place patient on hospice this weekend, appreciate case management in discharge planning ANNMARIE Pleural Effusion Pneumonia Chronic respiratory failure with O2 dependency - Continue antibiotics as above - Respiratory interventions with oxygen supplementation, needing more than her baseline of 2 L/min, on 3 L/min - Continue DuoNeb as needed, Pulmicort twice daily Acute on Chronic diastolic heart failure - BNP 29836 - Sepsis fluids given in ER, given BILL and lactic acidosis will continue gentle IV fluid hydration and monitor closely for volume overload - Resume cardioprotective medications when no longer NPO - When able to resume diet cardiac with sodium restriction - Strict I&O's BILL - BUN 79, [employer] Tenn[employer] 2.3 - Renally dose medications, avoid nephrotoxic agents - repeat CMP Transaminitis - CT: Gallbladder is very poorly visualized, visceral organs of the abdomen are poorly visualized - bilirubin 2.3, AST 2124, ALT 862, Alkaline phos 412 - Patient and family refuse further work-up Hyperkalemia - K+ 6.7, pending repeat - 8 units regular insulin IVP, D10W, albuterol 10mg, and calcium gluconate administered - repeat cmp - Cardiac Monitoring Diabetes -hold home medications -insulin sliding scale, POC Hypothyroidism -TSH ordered, pending -holding PO levothyroxine- due to decreased level of consciousness. Abdominal aortic occlusion - Notified family, requested no further work-up or intervention Polio, history with physical debility - Supportive measures Nonspecific vaginal bleeding - Unsure as to the cause of vaginal bleeding - Monitor hemoglobin and hematocrit closely - Spoke with family, requested no further workup VTE PPX: SCD's GI PPX: PPI Code Status: DNR,DNI PDMP PDMP Reviewed: Not Reviewed Attestations 2 Medical Necessity Statement*: Patient will require greater than a 2 midnight stay given the severity of illness, UTI, sepsis, bilateral pleural effusions, acute on chronic diastolic heart failure, hyperkalemia, transaminitis. Coding Level of Care Code Critical Care >/= 30 minutes Diagnoses Acute on chronic diastolic heart failure I50.33 Heart failure chronicity: acute on chronic UTI (urinary tract infection) N39.0 Transaminitis R74.01 Acute hyperkalemia E87.5 Diabetes E11.9 Acute kidney injury N17.9 Hypothyroidism E03.9 Documented by User: Aimee Ruano NP 06/20/25 19:13 Providers/Chief Complaint 2 Chief Complaint: left arm pain - difficulty breathing Medications/Allergies Home Medications ?Medication ?Instructions ?Recorded ?Confirmed ?Last Taken ?Type Lactobacillus rhamnosus GG 10 1 cap PO DAILY PRN when on 08/11/24 06/20/25 Unknown History billion cell capsule (Culturelle) antibiotics acetaminophen 325 mg tablet 650 mg PO QID PRN pain or fever 08/11/24 06/20/25 Unknown History (Tylenol) bisacodyl 10 mg rectal suppository 10 mg RI DAILY PRN constipation 08/11/24 06/20/25 06/20/25 08:00 History camphor-menthol 0.2 %-3.5 % 1 applic topical TID PRN M USCLE 08/11/24 06/20/25 08/09/24 History topical gel SPASM magnesium hydroxide 400 mg/5 mL 30 ml PO DAILY PRN Con stipation 08/11/24 06/20/25 Unknown History oral suspension (Milk of Magnesia) ondansetron HCl 4 mg tablet 4 mg PO Q6H PRN Nausea And Vomiting 08/11/24 06/20/25 Unknown History pantoprazole 40 mg tablet,delayed 40 mg PO DAILY 08/1106/20/25 06/20/25 08:00 History release sodium phosphates 19 gram-7 118 ml RI DAILY PRN Consti pation 08/11/24 06/20/25 Unknown History gram/118 mL enema (Fleet Enema) aspirin 81 mg tablet,delayed 81 mg PO DAILY 02/05/25 1 08/20/24 06/20/25 07:00 History release bumetanide 2 mg tablet 2 mg PO BID 02/05/25 5 06/20/25 07:00 History insulin aspart U-100 100 unit/mL See Rx Instructions . Route .COMPLEX 02/05/25 06/20/25 06/19/25 History (3 mL) subcutaneous pen levothyroxine 100 mcg tablet 100 mcg PO DAILY 02/05/25 06/20/25 06/20/25 06:30 History potassium chloride 20 mEq 20 meq PO DAILY 02/05/2506/20/25 08:00 History tablet,extended release tramadol 50 mg tablet 50 mg PO Q8H PRN Moderate Pa in 02/05/25 06/20/25 Unknown History (Scale Score 5-6) right wrist brace #1 ea 05/23/25 06/20/25 Unkn own Rx arm brace #1 ea 06/06/25 06/20/25 Unkn own Rx insulin degludec 100 unit/mL (3 8 unit SUBCUT BEDTIME 06/20/25 06/20/25 06/19/25 20:00 History mL) subcutaneous pen Allergies Allergy/AdvReac Type Severity Reaction Status Date / Time propoxyphene (From AdvReac Unknown Verified 06/20/25 13:23 Darvocet-N) PFSH Acute 2 PFSH: Medical History (Updated 06/20/25 @ 17:45 by Malinda Cazares NP) HTN (hypertension) Carotid stenosis Tricuspid regurgitation Diabetes Hypothyroidism Polio Surgical History Hx of cataract surgery Hx of hernia repair Hx of section Family History Other Diabetes Social History Smoking and tobacco/nicotine status: former use of tobacco/nicotine Alcohol intake: current Alcohol intake frequency: other Substance/Drug Use: never Data 06/20/25 13:36 06/20/25 18:03 A&P Assessment and plan 1. Acute on chronic diastolic heart failure: 2. UTI (urinary tract infection): 3. Transaminitis: 4. Acute hyperkalemia: 5. Diabetes: 6. Acute kidney injury: 7. Hypothyroidism: PDMP PDMP Reviewed: Not Reviewed Attestations 2 Time Spent in Patient Care: Greater than 35 minutes Coding Level of Care Code Critical Care >/= 30 minutes Critical care time (in minutes): 30 The high probability of a clinically significant, sudden or life threatening deterioration, as referenced in this documentation, required my full and direct attention, intervention and personal management. The critical care time shown is in addition to time spent performing any reported separately billable procedures and includes the following: [x] Data and vital sign review and interpretation [x ] Patient assessment, examination and intervention [x] Medication orders and management [x] Patient/Family updates as able [x] Care Coordination and Documentation. Other Coding Information Shared care Diagnoses Acute on chronic diastolic heart failure I50.33 Heart failure chronicity: acute on chronic UTI (urinary tract infection) N39.0 Transaminitis R74.01 Acute hyperkalemia E87.5 Diabetes E11.9 Acute kidney injury N17.9 Hypothyroidism E03.9
[2025-06-20 17:00] LABS: Lactic Acid level (Lactate) 4.9 mmol/L (0.5-2.2)
--- NOTE | 2025-06-20 17:30 | PC.NURSE ---
this nurse called report to RIRI Carlson on Med Surg. this nurse communicated pts vital signs, including blood pressure to Robyn. Robyn stated pt was good to go to the floor and denied further questions. Pt transferred to Med Surg by AURORA Isabel.
[2025-06-20] MEDS: pantoprazole 40 mg SDV IVP (18:12)
[2025-06-20 18:57] LABS: Potassium 6.3 mmol/L (3.5-5.1)
[2025-06-20 19:01] LABS: Lactate (Lactic Acid level) 5.1 mmol/L (0.5-2.2)
[2025-06-20] MEDS: sodium bicarbonate 50 MEQ in dextrose 5% 250 ML 600 MEQ IV (19:30)
[2025-06-20 20:58] LABS: ABG PCO2 47.4 mmHg (35-45); ABG PH Result 7.27 (7.35-7.45); Arterial Blood Gas Hematocrit 36.1 % (37-47); Blood Gas Allen Test Pos; Blood Gas LPM 5.0 %; Blood Gas Operator Identificat SAM; Blood Gas Sample Site Radial, left; Blood Gas Sample Type Arterial; HCO3 ABG 21.6 mmol/L (22-26); PO2 ABG 66.9 mmHg (80.0-100.0)
[2025-06-21] VITALS: BP 94/63; PULSE 68; RESP 17; TEMP 36.8; O2SAT 91
--- NOTE | 2025-06-21 | PC.NURSE ---
at 0000 no void, bladder scan showed 105 ml, no bladder distention palpate
[2025-06-21 01:36] LABS: Thyroid Stimulating Hormone 8.72 uIU/mL (0.27-4.20)
[2025-06-21 01:45] LABS: Estmated Average Glucose 183; Hemoglobin A1C 8.0 % (4.0-6.0)
--- NOTE | 2025-06-21 03:47 | PC.NURSE ---
no void, bladder scan showed 135ml, no bladder distention palpated, pt awake able to respond to some questions appropriately, denied pain or tenderness when abd was being palpated
[2025-06-21 03:57] VITALS: BP 81/57; PULSE 62; RESP 16; TEMP 36.7; O2SAT 99
[2025-06-21 05:37] LABS: Albumin Level 2.9 g/dL (3.5-5.2); Alkaline Phosphatase 377 U/L (35-105); Anion Gap 27.1 (5-19); Blood Urea Nitrogen 77 mg/dL (8-23); Calcium 7.9 mg/dL (8.5-10.5); Carbon Dioxide 17 mmol/L (22-29); Chloride 100 mmol/L (98-107); Globulin 2.9 g/dL (1.3-4.6); Glucose 80 mg/dL (65-115); Magnesium 2.0 mg/dL (1.7-2.3); Osmolality Calculated 308 mOsm/kg (285-295); Potassium 6.1 mmol/L (3.5-5.1); Sodium 138 mmol/L (136-145); Total Protein 5.8 g/dL (6.6-8.7)
[2025-06-21 05:50] LABS: Alanine Aminotransferase 1269 U/L (0-33)
[2025-06-21 05:53] LABS: Aspartate Amino Transferase 3159 U/L (0-32)
[2025-06-21 06:00] VITALS: PULSE 66
--- NOTE | 2025-06-21 07:10 | PC.NURSE ---
Dr. Chapa informed of pt BS and no output, instruction received to monitor urine output and give 250ml D10 and glucagon
[2025-06-21] MEDS: glucagon 1 mg/mL KIT 1 mL IM (07:20)
[2025-06-21 07:28] VITALS: BP 80/50
[2025-06-21 07:30] VITALS: PULSE 69; RESP 20; O2SAT 90
--- NOTE | 2025-06-21 07:52 | PM.PN ---
Vitals/I&O/Wt Last Vital Signs Temp 98.1 F 06/21/25 03:57 Pulse 69 06/21/25 07:30 Resp 20 H 06/21/25 07:30 BP 80/50 06/21/25 07:28 Pulse Ox 90 06/21/25 07:30 O2 Del Method Nasal Cannula 06/21/25 07:30 O2 Flow Rate 5 06/21/25 07:30 06/20/25 06/21/25 06/21/25 22:59 06:59 14:59 Intake Total 2550 / 2550 1261.25 / 3811.25 Balance 2550 / 2550 1261.25 / 3811.25 Weight last 48 hrs Weight 53.977 kg Weight 54.686 kg Weight 51.256 kg Data 06/20/25 13:36 06/21/25 04:30 A&P PDMP PDMP Reviewed: Not Reviewed Coding Level of Care Code Acute Code for Chg Fwd
[2025-06-21] MEDS: cefTRIAXone 1,000 mg SDV 1000 MG IVP (07:57)
[2025-06-21 07:58] VITALS: PULSE 57; RESP 28; TEMP 34.4
[2025-06-21 09:37] LABS: Lactate (Lactic Acid level) 9.9 mmol/L (0.5-2.2)
--- NOTE | 2025-06-21 11:05 | PM.DCS ---
Discharge Providers Date of Admission: 06/20/25 15:55 Date of Discharge: June 21, 2025 Attending Provider at Admission: Mainor Larios MD Attending Provider at Discharge: Aimee Ruano NP Primary Care Provider: Steve Infante DO Diagnoses at Discharge Discharge Diagnosis 1. Acute on chronic diastolic heart failure: 2. UTI (urinary tract infection): 3. Transaminitis: 4. Acute hyperkalemia: 5. Other specified diabetes mellitus with other specified complication, unspecified whether half-way insulin use: 6. Acute kidney injury: 7. Hypothyroidism: Reason for Visit Reason for Visit: left arm pain - difficulty breathing Brief History: Admission: Natalie Marks is a 80 year old female with past medical history of pulmonary HTN, CHF, carotid stenosis, diabetes, hypothyroidism, came into the ED via ambulance from [facility] today for complaints of increased SOB, and abd pain. Patient will be admitted to hospitalist services for further management of care. Patient resting in bed on 4L NC, no family members present at bedside during evaluation. Patient reports shortness of breath, abdominal pain and nausea. Evaluation limited due to patient decreased level of consciousness, and no family members present. [facility] [place] patient started feeling ill 06/20/25 complaining of increased shortness of breath, abdominal pain, nausea, as well as refusal of meals. Patient also was noted to have spiked a fever of 101 F around 1200 06/19/25. Later this morning around 1040 patient became more short of breath, O2 satting 82 to 86% on baseline 3 L nasal cannula oxygen-EMS called at this time. Zofran, and tramadol were used as alleviating factors for nausea and pain early this morning at 0450. Patient is current smoker. Contacted Rycvkoc-[id number]-law, regarding plan of care and states that Natalie is normally A&Ox3. DNR code status confirmed and patient's does not want aggressive treatment, if patient remains in this state family would like to transition to hospice care. Family plans to fly in by Tuesday, extended family will arrive at the hospital tomorrow. While in ED a CBC, CMP were collected and resulted as follows: WBC 24.6, Neutophils 22.3, K+ 6.7, Anion Gap 28.7, BUN 79, Canoe Builder 2.3, Lactic Acid 4.3, bilirubin 2.3, AST 2124, ALT 862, Alkaline phos 412, BNP 96907. UA as follows: urine bacteria 4+, urine wbc 21-50, urine leukocyte esterase 1+, urine bilirubin 1+, urine rbc 11-20. While in ED pt received the following medications: Sepsis NS bolus 1.75L, azithromycin, Rocephin, 8 units IV push regular insulin, D10 W, 1 g IV push calcium gluconate, Zofran 4 mg, morphine 4 mg, albuterol sulfate 10 mg x2. Blood cultures, Urine culture obtained and pending Hospital Course Hospital Course Acute UTI POA Sepsis Metabolic encephalopathy - Lactic acid 4.3--<4.9, pending repeat - blood cultures, urine cultures pending - UA: urine bacteria 4+, urine wbc 21-50, urine leukocyte esterase 1+, urine bilirubin 1+, urine rbc 11-20 - Sepsis bolus protocol given in ED - Hypotension, holding medications and confiding supportive measures - Rocephin, azithromycin administered, continue - NPO, due to decreased LOC - Family would like palliative interventions and will place patient on hospice this weekend, appreciate case management in discharge planning ANNMARIE Pleural Effusion Pneumonia Chronic respiratory failure with O2 dependency - Continue antibiotics as above - Respiratory interventions with oxygen supplementation, needing more than her baseline of 2 L/min, on 3 L/min - Continue DuoNeb as needed, Pulmicort twice daily Acute on Chronic diastolic heart failure - BNP 18682 - Sepsis fluids given in ER, given BILL and lactic acidosis will continue gentle IV fluid hydration and monitor closely for volume overload - Resume cardioprotective medications when no longer NPO - When able to resume diet cardiac with sodium restriction - Strict I&O's BILL - BUN 79, Canoe Builder 2.3 - Renally dose medications, avoid nephrotoxic agents - repeat CMP Transaminitis - CT: Gallbladder is very poorly visualized, visceral organs of the abdomen are poorly visualized - bilirubin 2.3, AST 2124, ALT 862, Alkaline phos 412 - Patient and family refuse further work-up Hyperkalemia - K+ 6.7, pending repeat - 8 units regular insulin IVP, D10W, albuterol 10mg, and calcium gluconate administered - repeat cmp - Cardiac Monitoring Diabetes -hold home medications -insulin sliding scale, POC Hypothyroidism -TSH ordered, pending -holding PO levothyroxine- due to decreased level of consciousness. Abdominal aortic occlusion - Notified family, requested no further work-up or intervention Polio, history with physical debility - Supportive measures Nonspecific vaginal bleeding - Unsure as to the cause of vaginal bleeding - Monitor hemoglobin and hematocrit closely - Spoke with family, requested no further workup Family arrived at the bedside on 06/21/2025 and asked for withdrawal of care in place and to be patient on hospice care. Family requested patient to return to her long term stating that this would be her preference to pass at the long term rather than in the hospital. Greatly appreciate case management and coordination with family on discharge planning and setting up hospice at her long term. With no further medical interventions expected patient to pass within the next 24 to 48 hours. Did also relay this information to patient's Daughter In Law Lupe via phone. No new prescriptions, palliative measures per hospice care. Physical Exam Const: COMMON NORMALS: negative for patient oriented x3 (Decreased level of consciousness, responds to painful stimuli) and negative for alert HENMT: COMMON NORMALS: normocephalic; oral mucous membranes not moist HEAD & SCALP: normocephalic Eye: GENERAL EYE: other (pinpoint, non reactive) Lymph: LYMPHATIC: no lymphadenopathy noted Resp: AUSCULTATION: other (diminished bilateral breath sounds) Cardio: COMMON NORMALS: regular rate, regular rhythm and Peripheral pulses 2+ throughout RATE: regular rate RHYTHM: regular rhythm PERIPHERAL PULSES: Peripheral pulses 2+ throughout GI: COMMON NORMALS: Normal to inspection, nondistended, normoactive bowel sounds present, Soft to palpation and non-tender PALPATION: Yes Soft to palpation : SPECULUM EXAM - VAGINA: Yes other (Serosanguineous vaginal drainage) Extremity: OTHER: bilateral muscle atrophy Neuro: COMMON NORMALS: CN's II-XII intact bilaterally; negative for patient oriented x3 (Decreased level of consciousness, responds to painful stimuli) SENSORIUM/ORIENTATION: No alert Skin: OTHER: Bilateral feet and lower extremities with mottling Discharge Data Studies Completed and Pending Completed Studies During Hospitalization Category [place] [id number] Stat Cat Scan 06/20/25 13:47 Completed XR chest 1V portable [id number] Stat Exams 06/20/25 13:19 Completed Pending at discharge Category Date Time Status Blood Culture Stat Lab 06/20/25 14:03 Received Complete Blood Count w/Auto AM LABS Lab 06/22/25 04:00 Ordered Complete Blood Count w/Auto AM LABS Lab 06/23/25 04:00 Ordered Complete Blood Count w/Auto AM LABS Lab 06/24/25 04:00 Ordered Comprehensive Metabolic Panel AM LABS Lab 06/22/25 04:00 Ordered Comprehensive Metabolic Panel AM LABS Lab 06/23/25 04:00 Ordered Magnesium AM LABS Lab 06/22/25 04:00 Ordered Magnesium AM LABS Lab 06/23/25 04:00 Ordered Phosphorus AM LABS Lab 06/22/25 04:00 Ordered Phosphorus AM LABS Lab 06/23/25 04:00 Ordered Urine Culture Stat Lab 06/20/25 14:08 Results Radiology Impressions Chest X-Ray 06/20/25 13:19 IMPRESSION: 1. Cardiac enlargement unchanged. No acute process identified. Chest/Abdomen/Pelvis CT 06/20/25 13:47 IMPRESSION: 1. Extremely limited evaluation of the chest, abdomen and pelvis without IV contrast. 2. Small bilateral pleural effusions with compressive atelectasis at the lung bases. 3. Hiatal hernia. 4. Cardiomegaly. 5. Diffuse soft tissue anasarca and edema throughout the chest, abdomen and pelvis. 6. Bilateral renal calcifications. No obstruction is evident. 7. Small amount of free fluid in the pelvis. 8. Gallbladder is very poorly visualized. Visceral organs of the abdomen are poorly visualized. 9. Dense plaque within the abdominal aorta. Suspect high-grade if not near complete occlusion of the aorta. 10. No ischemic changes in the GI tract. Laboratory Results WBC 24.58 10^3/uL (3.29-11.43) H 06/20/25 13:36 RBC 4.80 10^6/uL (3.85-5.65) 06/20/25 13:36 Hgb 12.00 g/dL (11.27-16.99) 06/20/25 13:36 Hct 39.3 % (36-47) 06/20/25 13:36 MCV 81.9 fl (85-98) L 06/20/25 13:36 MCH 25.0 pg (27-33) L 06/20/25 13:36 MCHC 30.5 g/dL (30-55) 06/20/25 13:36 RDW 19.4 % (12.1-15.1) H 06/20/25 13:36 Plt Count 315 10^3/cmm (157-399) 06/20/25 13:36 MPV 10.2 fL (7.4-10.4) 06/20/25 13:36 Neut % (Auto) 90.8 % 06/20/25 13:36 Lymph % (Auto) 2.1 % 06/20/25 13:36 [place] % (Auto) 5.5 % 06/20/25 13:36 Eos % (Auto) 0.0 % 06/20/25 13:36 Baso % (Auto) 0.1 % 06/20/25 13:36 Neut # (Auto) 22.29 10^3/uL (1.8-7.7) H 06/20/25 13:36 Lymph # (Auto) 0.5 10^3/uL (0.8-4.8) L 06/20/25 13:36 [place] # (Auto) 1.4 10^3/uL (0.2-0.9) H 06/20/25 13:36 Eos # (Auto) 0.0 10^3/uL (0.0-0.8) 06/20/25 13:36 Baso # (Auto) 0.0 10^3/uL (0.0-0.1) 06/20/25 13:36 Nucleated RBC % (auto) 0.3 % 06/20/25 13:36 Nucleated RBCs # 0.1 /100WBC 06/20/25 13:36 Specimen Type Arterial 06/20/25 20:46 Sample Site Radial, left 06/20/25 20:46 ABG pH 7.27 (7.35-7.45) L 06/20/25 20:46 ABG pCO2 47.4 mmHg (35-45) H 06/20/25 20:46 ABG pO2 66.9 mmHg (80.0-100.0) L 06/20/25 20:46 ABG HCO3 21.6 mmol/L (22-26) L 06/20/25 20:46 ABG Base Excess -5.4 mmol/L (-2.0-2.0) L 06/20/25 20:46 Delfino Test Pos 06/20/25 20:46 Hematocrit 36.1 % (37-47) L 06/20/25 20:46 O2 Delivery Device Nc 06/20/25 20:46 O2 Liters/Min 5.0 % 06/20/25 20:46 Dining Room Host ID Eduardo 06/20/25 20:46 Sodium 138 mmol/L (136-145) 06/21/25 04:30 Potassium 6.1 mmol/L (3.5-5.1) H 06/21/25 04:30 Chloride 100 mmol/L (98-107) 06/21/25 04:30 Carbon Dioxide 17 mmol/L (22-29) L 06/21/25 04:30 Anion Gap 27.1 (5-19) H 06/21/25 04:30 BUN 77 mg/dL (8-23) H 06/21/25 04:30 Creatinine 2.5 mg/dL (0.5-0.9) H 06/21/25 04:30 GFR Calculation Not Reportable 06/21/25 04:30 Glucose 80 mg/dL (65-115) 06/21/25 04:30 POC Glucose 97 mg/dL (70-110) 06/21/25 06:18 Estimat Average Glucose 183 06/20/25 13:36 Hemoglobin A1c 8.0 % (4.0-6.0) H 06/20/25 13:36 Calculated Osmolality 308 mOsm/kg (285-295) H 06/21/25 04:30 Lactic Acid 4.3 mmol/L (0.5-2.2) H* 06/20/25 13:36 Lactic Acid (Sepsis) 4.9 mmol/L (0.5-2.2) H* 06/20/25 16:27 Lactate 9.9 mmol/L (0.5-2.2) H* 06/21/25 08:21 Calcium 7.9 mg/dL (8.5-10.5) L 06/21/25 04:30 Phosphorus 8.2 mg/dL (2.5-4.5) H* 06/21/25 04:30 Magnesium 2.0 mg/dL (1.7-2.3) 06/21/25 04:30 Total Bilirubin 1.9 mg/dL (0.15-1.2) H 06/21/25 04:30 AST 3159 U/L (0-32) H 06/21/25 04:30 ALT 1269 U/L (0-33) H 06/21/25 04:30 Alkaline Phosphatase 377 U/L (35-105) H 06/21/25 04:30 NT-Pro-B Natriuret Pep 69697 pg/mL (0-450) H 06/20/25 13:36 Total Protein 5.8 g/dL (6.6-8.7) L 06/21/25 04:30 Albumin 2.9 g/dL (3.5-5.2) L 06/21/25 04:30 Globulin 2.9 g/dL (1.3-4.6) 06/21/25 04:30 TSH 8.72 uIU/mL (0.27-4.20) H 06/20/25 13:36 Urine Color Dark yellow (Yellow) A 06/20/25 14:08 Urine Appearance Clear (CLEAR) 06/20/25 14:08 Urine pH 5.5 (5-7) 06/20/25 14:08 Ur Specific [place] 1.016 (1.005-1.030) 06/20/25 14:08 Urine Protein 3+ (Negative) A 06/20/25 14:08 Urine Glucose (UA) Negative (Normal) 06/20/25 14:08 Urine Ketones Trace (Negative) 06/20/25 14:08 Urine Blood 2+ (Negative) A 06/20/25 14:08 Urine Nitrate Negative (Negative) 06/20/25 14:08 Urine Bilirubin 1+ (Negative) H 06/20/25 14:08 Urine Urobilinogen 1.0 mg/dL (Negative) 06/20/25 14:08 Ur Leukocyte Esterase 1+ (Negative) A 06/20/25 14:08 Urine RBC 11-20 /hpf (0-2) H 06/20/25 14:08 Urine WBC 21-50 /hpf (0-5) H 06/20/25 14:08 Ur Squamous Epith Cells 0-5 /hpf (0-5) 06/20/25 14:08 Amorphous Sediment Not Reportable 06/20/25 14:08 Urine Bacteria 4+ /hpf (NONE) H 06/20/25 14:08 Hyaline Casts 24.82 /lpf 06/20/25 14:08 Vitals Last Vital Signs Temp 93.9 F L 06/21/25 07:58 Pulse 57 L 06/21/25 07:58 Resp 28 H 06/21/25 07:58 BP 80/50 06/21/25 07:28 Pulse Ox 90 06/21/25 07:30 O2 Del Method Nasal Cannula 06/21/25 07:58 O2 Flow Rate 5 06/21/25 08:00 Discharge Plan Discharge Patient Disposition: Hospice - Home Condition: Serious Prescriptions: Discontinued (DME) right wrist brace See Rx Instructions .Route .MEDSUPPLY Qty: 1 0RF Rx Instructions: As directed (DME) arm brace See Rx Instructions .Route .MEDSUPPLY Qty: 1 0RF Rx Instructions: remove brace during the day, use only to sleep. acetaminophen [Tylenol] 325 mg Tablet 650 mg PO QID PRN (Reason: pain or fever) ondansetron HCl 4 mg Tablet 4 mg PO Q6H PRN (Reason: Nausea And Vomiting) magnesium hydroxide [Milk of Magnesia] 400 mg/5 mL Suspension 30 ml PO DAILY PRN (Reason: Constipation) bisacodyl 10 mg Suppository 10 mg NV DAILY PRN (Reason: constipation ) pantoprazole 40 mg tablet,delayed release (DR/EC) 40 mg PO DAILY Fleet Enema 19-7 gram/118 mL Enema 118 ml NV DAILY PRN (Reason: Constipation) Culturelle 10 billion cell Capsule 1 cap PO DAILY PRN (Reason: when on antibiotics) camphor-menthol 0.2-3.5 % Gel 1 applic TOPICAL TID PRN (Reason: MUSCLE SPASM ) Rx Instructions: APPLY TO NECK, rub in gently and completely. bumetanide 2 mg Tablet 2 mg PO BID aspirin 81 mg Tablet,Delayed Release (Dr/Ec) 81 mg PO DAILY tramadol 50 mg tablet 50 mg PO Q8H PRN (Reason: Moderate Pain (Scale Score 5-6)) levothyroxine 100 mcg tablet 100 mcg PO DAILY insulin aspart U-100 100 unit/mL (3 mL) insulin pen See Rx Instructions .ROUTE .COMPLEX Rx Instructions: INJECT PER MODERATES SLIDING SCALE 3 TIMES DIALY BEFORE MEALS. potassium chloride 20 mEq Tablet Extended Release 20 meq PO DAILY insulin degludec 100 unit/mL (3 mL) insulin pen 8 unit SUBCUT BEDTIME Discharge Order = DC NOW: Discharge Order (Routine); Ordered 06/21/25 Ordered By: Aimee Ruano Referrals: [facility] [Outside] [facility] [Outside] Steve Infante DO [Primary Care Provider, Internal Medicine] Discharge Attestations Time Spent in Discharge Care*: greater than 30 min Specific Discharge Activities: educating and/or supporting family/caregiver, discussing with case monitor/social workers/dc planners, documenting/other paperwork and evaluating patient/reviewing data Quality Metrics Clinical Quality Measures [ No reported AMI, CVA or VTE this stay] Coding Level of Care Code 45127 Diagnoses Acute on chronic diastolic heart failure I50.33 Heart failure chronicity: acute on chronic UTI (urinary tract infection) N39.0 Transaminitis R74.01 Acute hyperkalemia E87.5 Other specified diabetes mellitus with other specified complication, unspecified whether half-way insulin use E13.69 Diabetes mellitus type: other specified (including JYOTI) 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
--- NOTE | 2025-06-21 12:12 | PC.SOCIAL ---
IMM Updated Updated pt's family via phone on IMM. No questions voiced. Provided pt a copy. Initialed, dated, & timed a copy & placed in chart.
== END 2025-06-21 14:06 | disposition hospice, inpatient (51) | DRG 871 ==
LOC: ER 15:23 → MEDSURG 15:56
PROVIDERS: Admitting Provider Family Medicine; Emergency Provider Emergency Medicine; PCP Internal Medicine; Visit Provider Registered Nurse
DX: A41.9 Sepsis, unspecified organism (principal); G93.41 Metabolic encephalopathy; I50.33 Acute on chronic diastolic (congestive) heart failure; J18.9 Pneumonia, unspecified organism; N30.00 Acute cystitis without hematuria; N17.9 Acute kidney failure, unspecified; E87.20 Acidosis, unspecified; J96.10 Chronic respiratory failure, unspecified whether with hypoxia or hypercapnia; I74.09 Other arterial embolism and thrombosis of abdominal aorta; I11.0 Hypertensive heart disease with heart failure; E87.5 Hyperkalemia; E13.69 Other specified diabetes mellitus with other specified complication; E03.9 Hypothyroidism, unspecified; I27.20 Pulmonary hypertension, unspecified; I65.29 Occlusion and stenosis of unspecified carotid artery; F17.210 Nicotine dependence, cigarettes, uncomplicated; Z66 Do not resuscitate; I07.1 Rheumatic tricuspid insufficiency; Z99.81 Dependence on supplemental oxygen; Z79.4 Long term (current) use of insulin; Z79.82 Long term (current) use of aspirin; Z86.12 Personal history of poliomyelitis
CPT/HCPCS: 36415; 36416; 36600; 71045; 71250; 74176; 80053; 81001; 82803; 82962; 83036; 83605; 83735; 83880; 84100; 84132; 84443; 85025; 87040; 87077; 87086; 87150; 87186; 87205; 93005; 94640; 96372; 97161; J0456; J0612; J0696; J1610; J1815; J2270; J2405; J2470; J7030; J7040; J7050; J7060; J7611; J7626; J7799

== ENCOUNTER 2025-06-21 14:07 | Inpatient (IN) | payer OTHER, MEDICARE, MEDICAID, SELFPAY ==
--- NOTE | 2025-06-21 16:25 | PM.HP ---
Providers/Chief Complaint Admitting Physician: Mianor Larios MD Primary Care Provider: Steve Infante DO Chief Complaint: HOSPICE CARE ADMIT History of Present Illness Natalie Marks is a 80 year old female who was admitted initially inpatient for difficulty breathing, hypoxic respiratory failure, CHF, elevated LFTs. Shortly after admission patient had decreased level of consciousness, worsening hypoxia, worsening labs, determined to be actively passing. Contacted family who requested that patient be placed on hospice initially wanted transfer back to the patient's [facility] however patient family felt that her was more eminent than they had suspected initially and would like the patient to stay inpatient hospice through her . Greatly appreciate case management and the coordination for setting the patient up for GIP, admitted to [address] [place] [address]. Review of Systems Narrative: Unable to complete due to diminished level of consciousness, no capacity. Medications/Allergies Home Medications ?Medication ?Instructions ?Recorded ?Confirmed ?Last Taken ?Type atropine 1 % eye drops 4 drp sublingual Q4H PRN 06/21/25 Unknown Rx Secretions #5 mL bisacodyl 10 mg rectal suppository 10 mg NJ DAILY PRN Constipation #5 06/21/25 Unknown Rx (Dulcolax (bisacodyl)) ea diphenhydramine HCl 25 mg tablet 25 mg PO Q4H PRN Allergic Reaction 06/21/25 Unknown Rx #5 tabs hydroxyzine HCl 25 mg tablet 25 mg PO TID PRN Itching #5 tabs 06/21/25 Unknown Rx lorazepam 2 mg/mL oral concentrate 2 mg sublingual Q4H PRN 06/21/25 Unknown Rx Anxiety/Seizure #30 mL morphine concentrate 100 mg/5 mL 20 mg sublingual DIRECTED PRN 06/21/25 Unknown Rx (20 mg/mL) oral solution Pain/SOB 14 days #30 mL ondansetron 4 mg disintegrating 4 mg translingual Q4H PRN Nausea 06/21/25 Unknown Rx tablet #5 tabs Allergies Allergy/AdvReac Type Severity Reaction Status Date / Time propoxyphene (From AdvReac Unknown Verified 06/20/25 13:23 Reinaldot-N) PFSH Acute PFSH: Medical History (Updated 06/20/25 @ 17:45 by Malinda Cazares NP) HTN (hypertension) Carotid stenosis Tricuspid regurgitation Diabetes Hypothyroidism Polio Surgical History Hx of cataract surgery Hx of hernia repair Hx of section Family History Other Diabetes Social History Smoking and tobacco/nicotine status: former use of tobacco/nicotine Alcohol intake: current Alcohol intake frequency: other Substance/Drug Use: never Physical Exam Const: COMMON NORMALS: negative for patient oriented x3 (Decreased level of consciousness, responds to painful stimuli) and negative for alert HENMT: COMMON NORMALS: normocephalic; oral mucous membranes not moist HEAD & SCALP: normocephalic Eye: GENERAL EYE: other (pinpoint, non reactive) Lymph: LYMPHATIC: no lymphadenopathy noted Resp: AUSCULTATION: other (diminished bilateral breath sounds) Cardio: COMMON NORMALS: regular rate, regular rhythm and Peripheral pulses 2+ throughout RATE: regular rate RHYTHM: regular rhythm PERIPHERAL PULSES: Peripheral pulses 2+ throughout GI: COMMON NORMALS: Normal to inspection, nondistended, normoactive bowel sounds present, Soft to palpation and non-tender PALPATION: Yes Soft to palpation : SPECULUM EXAM - VAGINA: Yes other (Serosanguineous vaginal drainage) Extremity: OTHER: bilateral muscle atrophy Neuro: COMMON NORMALS: CN's II-XII intact bilaterally; negative for patient oriented x3 (Decreased level of consciousness, responds to painful stimuli) SENSORIUM/ORIENTATION: No alert Skin: OTHER: Bilateral feet and lower extremities with mottling A&P PDMP PDMP Reviewed: Not Reviewed Attestations Medical Necessity Statement*: Patient will require admission with hospice GIP until she passes, expect within 1-3 days. Coding Level of Care Code 49089
--- OUTSIDE RECORDS SUMMARY | 2025-06-21 17:03 | XMS_ITS ---
Author Organization [facility] Care Team Providers Care Graduate Research Assistant Name Role Phone Steve Infante Unavailable Unavailable Allergies and adverse reactions Code CodeSystem Substance Reaction Severity StartDate Concern Status 8785 RXNORM PROPOXYPHENE Severe 02/12/2025 active Care Team Name Role Address Phone Organization Dates Steve Infante PCP [address], [address], [place] (Office): : : [facility] 02/12/2025 - present Encounters Encounter Type Code Code System Description Performer Discharge Disposition Service Delivery Location Date Ambulatory Encounter CPT Code = [id number] Acute diastolic heart failure [id number] [facility] Address: [address], [place], [address], [facility]. 02/12 Ambulatory Encounter CPT Code = [id number] Acute hypoxemic respiratory failure [id number] [facility] Address: [address], [place], [address], [place]. 02/12 Ambulatory Encounter CPT Code = [id number] Type 2 diabetes mellitus without complication [id number] [facility] Address: [address], [place], [address], [place] 02/12 Ambulatory Encounter CPT Code = [address] Pulmonary hypertension [id number] [facility] Address: [address], [place], [address], [facility]. 02/12 Ambulatory Encounter CPT Code = [id number] Tricuspid incompetence, non-rheumatic [id number] [facility] Address: [address], [place], [address], [place]. 02/12 Ambulatory Encounter CPT Code = [address] Essential hypertension [id number] [facility] Address: [address], [place], [address], [place] 02/12 Ambulatory Encounter CPT Code = [id number] Hyperlipidemia [id number] [facility] Address: [address], [place], [address], [place] 02/12 Ambulatory Encounter CPT Code = [address] Carotid artery obstruction [id number] [facility] Address: [address], [place], [address], [place] 02/12 Ambulatory Encounter CPT Code = [address] Diaphragmatic hernia [id number] [facility] Address: [address], [place], [address], [place]. 02/12 Ambulatory Encounter CPT Code = [id number] Acute poliomyelitis [id number] [facility] Address: [address] [place], [address], [place]. 02/12 Ambulatory Encounter CPT Code = [id number] Gastroesophageal reflux disease without esophagitis [id number] [facility] Address: [address], [place], [address], [facility]. 02/12 Ambulatory Encounter CPT Code = [id number] Hypothyroidism [id number] [facility] Address: [address], [place], [address], [facility]. 02/12 Ambulatory Encounter CPT Code = [id number] Traumatic or non-traumatic injury [id number] [facility] Address: [address], [place], [address], [facility]. 02/12 Functional Status Code Name Recorded Time Value Entered By Ambulation 06/20/2025 Not assessed mgreen Ambulation 06/19/2025 Independent mhenry Ambulation 06/19/2025 Independent mhenry Ambulation 06/19/2025 Not assessed mhenry Bathing 06/20/2025 Not assessed - Dressing 06/19/2025 Extensive Assistance mhenry Feeding or Eating 06/20/2025 Not assessed mhenry Toileting 06/20/2025 Not assessed mhenry Transferring 06/20/2025 Not assessed mgreen Immunizations Immunization Status Vaccine Details Vaccine Code CodeSystem Date Notes Influenza completed Influenza, high-dose, split virus, quadrivalent, injectable, preservative free lotNumber: [id number] expiry: 02/04/2026 Mfg: [employer] Given 0.5 ml intramuscularly 197 CVX created date: 05/30/2025 consent date: 05/30/2025 administer ed date: 05/31/2025 Educated by Ivone Medrano RN on 06/03/2025 Influenza completed Influenza, high-dose, split virus, quadrivalent, injectable, preservative free 197 CVX created date: 05/24/2025 administer ed date: 12/11/2020 TB 2 Step Mantoux Skin Test completed tuberculin skin test; unspecified formulation Step 1 of Multi-step with next step required 98 CVX created date: 05/24/2025 administer ed date: 12/14/2020 LOT [id number] EXP# 04/26/2022 LT FA SARS-COV-2 (COVID-19) completed SARS-COV-2 (COVID-19) vaccine, mRNA, spike protein, LNP, preservative free, 100 mcg/0.5mL dose or 50 mcg/0.25mL dose Mfg: MODERNA Step 0 of Multi-step with next step required 207 CVX created date: 05/24/2025 administer ed date: 04/10/2021 moderna SARS-COV-2 (COVID-19) completed SARS-COV-2 (COVID-19) vaccine, mRNA, spike protein, LNP, preservative free, 100 mcg/0.5mL dose or 50 mcg/0.25mL dose Mfg: MODERNA Step 0 of Multi-step with next step required 207 CVX created date: 05/24/2025 administer ed date: 03/12/2021 moderna Prevnar 13 completed pneumococcal conjugate vaccine, 13 valent 133 CVX created date: 05/24/2025 administer ed date: 06/05/2015 Pneumovax 23 completed pneumococcal polysaccharide vaccine, 23 valent 33 CVX created date: 05/24/2025 administer ed date: 05/31/2016 COVID-19 Moderna Booster completed SARS-COV-2 (COVID-19) vaccine, mRNA, spike protein, LNP, preservative free, 100 mcg/0.5mL dose or 50 mcg/0.25mL dose Mfg: MODERNA 207 CVX created date: 05/24/2025 administer ed date: 07/16/2022 moderna bivalent COVID-19 Moderna Booster completed SARS-COV-2 (COVID-19) vaccine, mRNA, spike protein, LNP, preservative free, 100 mcg/0.5mL dose or 50 mcg/0.25mL dose Mfg: MODERNA 207 CVX created date: 05/24/2025 administer ed date: 04/08/2022 moderna Shingles (live) completed zoster vaccine, live 121 CVX created date: 05/24/2025 administer ed date: 03/03/2016 zoster live zostavax Medications Section Medication Name Status Code CodeSystem Dose Route Frequency Admin Type Sig Text Start Date End Date Indication FLEET ERICK active 4.5 ounce Rectal as needed PRN Inser t 4.5 ounce recta lly every 24 hours as neede d for Const ipati on 2024 - Constipatio n ICY HOT ADV CRE 16-11% active n/a n/a Topica l as needed PRN Apply to Neck topic ally as neede d for Pain 2024 - Pain MILK OF MAGN SUDHIR active 30 ml Oral as needed PRN Give 30 ml by mouth every 24 hours as neede d for Const ipati on 2024 - Constipatio n ONDANSETRON TAB 4MG active 2 RXNORM 1 table t Oral as needed PRN Give 1 table t by mouth every 6 hours as neede d for Nause a and Vomit ing 2024 - Nausea and Vomiting PANTOPRAZOL E TAB 40MG active 18599 0 RXNORM 1 table t Oral one time a day Routin e Give 1 table t by mouth one time a day relat ed to GASTR O-ESO PHAGE AL REFLU X DISEA SE WITHO UT ESOPH AGITI S (K21. 9) 2024 - - ACETAMINOPH E TAB 325MG active 69081 2 RXNORM 2 table t Oral as needed PRN Give 2 table t by mouth every 4 hours as neede d for Pain 2024 - Pain ASPIRIN LOW TAB 81MG EC active 1 table t Oral one time a day Routin e Give 1 table t by mouth one time a day relat ed to ACUTE DIAST OLIC (SYD ESTIV E) HEART FAILU RE (I50. 31) 2024 - - POT CHLORIDE TAB 20MEQ ER active 37020 94 RXNORM 1 table t Oral one time a day Routin e Give 1 table t by mouth one time a day for Suppl ement 2024 - Supplement BISACODYL SUP 10MG active 9 RXNORM 1 suppo sitor y Rectal as needed PRN Inser t 1 suppo sitor y recta lly every 24 hours as neede d for Const ipati on 2024 - Constipatio n TRAMADOL HCL TAB 50MG active 78978 3 RXNORM 1 table t Oral as needed PRN Give 1 table t by mouth every 8 hours as neede d for Pain relat ed to Pain, unspe cifie d (R52) 2024 - Pain LEVOTHYROXI N TAB 100MCG active 51570 6 RXNORM 1 table t Oral one time a day Routin e Give 1 table t by mouth one time a day relat ed to HYPOT HYROI DISM, UNSPE CIFIE D (E03. 9) 2024 - - BUMETANIDE TAB 2MG active 95678 9 RXNORM 1 table t Oral two times a day Routin e Give 1 table t by mouth two times a day relat ed to ACUTE DIAST OLIC (SYD ESTIV E) HEART FAILU RE (I50. 31) 2024 - - INSULIN ASPA INJ FLEXPEN active 4 unit Subcut aneous three times a day Routin e Injec t 4 unit subcu taneo usly three times a day relat ed to TYPE 2 DIABE PAVEL MELLI TUS WITHO UT COMPL ICATI ONS (E11. 9) AND Injec t as per slidi ng scale : if 150 - 200 = 3 units ; 201 - 250 = 5 units ; 251 - 300 = 7 units ; 301 - 350 = 9 units ; 351 - 400 = 11 units , subcu taneo usly three times a day relat ed to TYPE 2 DIABE PAVEL MELLI TUS WITHO UT COMPL ICATI ONS (E11. 9) 2024 - - n/a n/a Subcut aneous three times a day Routin e Injec t 4 unit subcu taneo usly three times a day relat ed to TYPE 2 DIABE PAVEL MELLI TUS WITHO UT COMPL ICATI ONS (E11. 9) AND Injec t as per slidi ng scale : if 150 - 200 = 3 units ; 201 - 250 = 5 units ; 251 - 300 = 7 units ; 301 - 350 = 9 units ; 351 - 400 = 11 units , subcu taneo usly three times a day relat ed to TYPE 2 DIABE PAVEL MELLI TUS WITHO UT COMPL ICATI ONS (E11. 9) 2024 - - INS DEGL FLX INJ 100UNIT active 5 unit Subcut aneous at bedtime Routin e Injec t 5 unit subcu taneo usly at bedti me relat ed to TYPE 2 DIABE PAVEL MELLI TUS WITHO UT COMPL ICATI ONS (E11. 9) 2024 - - Sulfamethox azole-Trime thoprim Tablet 800-160 [place] [address] 5 RXNORM 1 table t Oral every 12 hours Routin e Give 1 table t by mouth every 12 hours for bacte rial infec tion for 7 Days 06/03 bacterial infection Saccharomyc es boulardii Capsule [place] [address] 1 RXNORM 1 capsu le Oral two times a day Routin e Give 1 capsu le by mouth two times a day for probi otic for 7 Days 06/03 probiotic Carbamide Peroxide Solution 6.5 % [place] [address] 0 RXNORM 4 drop Auricu lar two times a day Routin e Insti ll 4 drop in both ears two times a day relat ed to TYPE 2 DIABE PAVEL MELLI TUS WITHO UT COMPL ICATI ONS (E11. 9) for 3 Days 05/31 - Simethicone Tablet Chewable 80 [place] [address] 6 RXNORM 1 table t Oral as needed PRN Give 1 table t by mouth every 4 hours as neede d for bloat ing with each meal passi ng gas relat ed to DIAPH RAGMA TIC HERNI A WITHO UT OBSTR UCTIO N OR GANGR ERICK (K44. 9);GA STRO- ESOPH AGEAL REFLU X DISEA SE WITHO UT ESOPH AGITI S (K21. 9) until 06/12 23:59 3 days only 06/13 bloating with each meal passing gas GlycoLax Powder active 06983 3 RXNORM 17 gram Oral one time a day Routin e Give 17 gram by mouth one time a day for const ipati on (in Liqui d) 2024 - constipatio n predniSONE Oral Tablet 20 MG active 68365 5 RXNORM 2 table t Oral one time a day Routin e Give 2 table t by mouth one time a day for respi rator y illne ss until 06/25 23:59 06/26 respiratory illness Mental Status Section Date Assessment Total Score Description 05/21/2025 BIMS 14 cognitively int act CAM 0 No delirium ind icated PHQ-9 00 02/18/2025 BIMS 15 cognitively int act CAM 0 No delirium ind icated PHQ-9 00 Insurance Providers Problems Problem # Description Date of onset Resolved Date Code CodeSystem Concern Status 1 OTHER INJURY OF UNSPECIFIED BODY REGION, SUBSEQUENT ENCOUNTER 06/06/[address] active 2 GASTRO-ESOPHAGEAL REFLUX DISEASE WITHOUT ESOPHAGITIS 03/14/[address] active 3 HYPOTHYROIDISM, UNSPECIFIED 03/14/[address] active 4 ACUTE DIASTOLIC (CONGESTIVE) HEART FAILURE 02/12/[address] active 5 ACUTE RESPIRATORY FAILURE WITH HYPOXIA 02/12/[address] active 6 DIAPHRAGMATIC HERNIA WITHOUT OBSTRUCTION OR GANGRENE 02/12/[address] active 7 ESSENTIAL (PRIMARY) HYPERTENSION 02/12/[address] active 8 HYPERLIPIDEMIA, UNSPECIFIED 02/12/[address] active 9 NONRHEUMATIC TRICUSPID (VALVE) INSUFFICIENCY 02/12/[address] active 10 OCCLUSION AND STENOSIS OF UNSPECIFIED CAROTID ARTERY 02/12/[address] active 11 PERSONAL HISTORY OF POLIOMYELITIS 02/12/[address] active 12 PULMONARY HYPERTENSION, UNSPECIFIED 02/12/[address] active 13 TYPE 2 DIABETES MELLITUS WITHOUT COMPLICATIONS 02/12/[address] active Reason for Referral No Reasons for Referral Entered Social History Social History Observation Description Start Date End Date Code Code System Current Smoking Status Tobacco smoking consumption unknown 543816309 SNOMED CT Sex Assigned At Female 1945 20321-9 [facility] Gender Identity Sexual Orientation Vital Signs Code Code System Vitals Name Values and Units Timing Information 9279-1 LOINC Respiratory Rate Value=18.0 Units=/m in 06/20/2025 8462-4 LOINC Blood Pressure-Diastolic Value=70 Un its=mmHg 06/20/2025 8480-6 LOINC Blood Pressure-Systolic Iklws=919 Un its=mmHg 06/20/2025 8310-5 LOINC Body Temperature Value=97.8 Units= F 06/20/2025 8867-4 LOINC Heart rate Value=69.0 Units=/min 2339-0 [facility] Blood Sugar Value=82.0 Units=mg/dL 06/20/2025 14297-8 [facility] Pain Level Value=2.0 06/20/2025 27765-9 [facility] O2 % BldC Oximetry Value=92.0 Units= % 06/20/2025 24585-4 [facility] Weight Dnfpu=436.0 Units=Lbs 8302-2 [facility] Height Value=64.0 Units=Inches 02/20/2025
--- OUTSIDE RECORDS SUMMARY | 2025-06-21 17:03 | XMS_ITS | Patient Health Record ---
Author Organization [facility] Address [address] [place] [address] Care Team Providers Care Hvac Project Manager Name Role Phone Regan Kaur Primary Care Provider Kevin Boone Unavailable [phone] Allergies No Known Allergies Reason For Referral [...] stenosis of multiple and bilateral cerebral arteries (353435687) Carotid stenosis, bilateral (I65.23) Active confirmed Plan Of Treatment Future Test Test Name Order Date Blood Urea Nitrogen (BUN) 60947 10/18/19 25 Creatinine (B) 28040 10/17/2024 CTA Head w/ + w/o Contrast-51915 025 CTA Neck w/ + w/o Contrast-41334 025 Insurance Providers Payer Name Payer Address Payer Phone Subscriber Number Group Number Insured Name Patient Relationship to Insured Coverage Start Date Coverage End Date [place] [address] [place] [id number] [phone] [id number] Natalie Marks Self - patient is the insured [place] Medicaid [address] [place] [address] [phone] [id number] Natalie Marks Self - patient is the insured Medical (General) History Medical History History ICD Code Hypertension Type 2 Diabetes Arthritis Surgical History Surgery Date(Month/Year) L foot surgery x3 Tonsilectomy
[2025-06-21 21:33] VITALS: RESP 19
[2025-06-21] MEDS: morphine 4 mg/mL SDV 1 mL IVP (21:33)
[2025-06-21] MEDS: artificial tears Op Soln 15 mL Btl 2 DROP EYE-BOTH (21:34)
[2025-06-22] MEDS: LORazepam 2 mg/mL INJ 1 mL IVP (02:15)
--- NOTE | 2025-06-22 02:26 | PC.NURSE ---
pt + resp distress resp 30-34, pt mouth wide open, nc changed to simple mask at 5 L . Ativan admin 1 mg first 15 min then admin the rest of 1 mg.=2mg total. HR 160 earlier now at 87 reg. pt R pupil 2mm fixed, left pupil 3mm fixed. pt now unresponsive, moves slightly to painful stimuli
[2025-06-22 02:48] VITALS: RESP 19
[2025-06-22] MEDS: morphine 4 mg/mL SDV 1 mL IVP ×3 (02:48→03:45)
[2025-06-22 03:18] VITALS: RESP 30
--- NOTE | 2025-06-22 03:20 | PC.NURSE ---
admin 2 more mg of Morphine; resp 30-36 w trachial tug, pt unresposive, cont have simple mask at 5 L. pt HR 80's reg. will cont to closely mon.
[2025-06-22 03:45] VITALS: RESP 36
--- NOTE | 2025-06-22 03:47 | PC.NURSE ---
cont deep , tracheal tug, labored breathing, unable to get pulse ox, extrem very cold, pt is molting, unresponsive. additional Morpine 4 mg given. 2 mg given then waiting 15 min for the rest 2 mg . total morphine now 8 mg given next 30 min. no facial grimacing but pt breathing is labored.
--- NOTE | 2025-06-22 07:59 | PC.NURSE ---
patient on 06/22/25 at 0735. Family was notified and is traveling from [place]. diversified crops supervisor notified and Nurse practitioner. Patients family chose [facility] home, will clarify [facility] location when they arrive.
--- NOTE | 2025-06-22 08:00 | P.DES_ITS ---
Discharge Providers DDS Date of Admission: 06/21/25 14:07 Date Summary Completed: 07/01/25 Attending Provider at Admission: Mainor Larios MD Time of : 07:35 Attending Provider at Discharge: Aimee Ruano NP Primary Care Provider: Steve Infante DO Reason for Visit Reason for Visit HOSPICE CARE ADMIT Brief History: Admission to Hospice GIP: Natalie Marks is a 80 year old female who was admitted initially inpatient for difficulty breathing, hypoxic respiratory failure, CHF, elevated LFTs. Shortly after admission patient had decreased level of consciousness, worsening hypoxia, worsening labs, determined to be actively passing. Contacted family who requested that patient be placed on hospice initially wanted transfer back to the patient's custodial however patient family felt that her was more eminent than they had suspected initially and would like the patient to stay inpatient hospice through her . Greatly appreciate case management and the coordination for setting the patient up for GIP, admitted to [address] [place] [address]. Summary Date and Time of Date of : 06/22/25 Time of : 07:35 Summary Summary: Was contacted that patient had passed 0735, family at the bedside. Attending physician notified. Greatly appreciate case management and coordination with hospice and family with home. Patient belongings returned to [facility] and body transported to home. Additional Data Advance directives?: No Discharge Plan Discharge Patient Disposition: Condition: Serious Probable Cause of Probable cause of : Cardiac arrest DS Attestations Time Spent in /Discharge Care*: less than 30 min Quality - AMI: AMI present?: No Quality - Stroke: CVA present?: No Quality - VTE: VTE present?: No Coding Level of Care Code 51497
[2025-06-22 08:01] VITALS: BP 0/0; PULSE 0; RESP 0; TEMP -17.7; TEMP 0; O2SAT 0
--- NOTE | 2025-06-22 10:04 | PM.DCS ---
Discharge Providers Date of Admission: 06/21/25 14:07 Date of Discharge: June 22, 2025 Attending Provider at Admission: Mainor Larios MD Attending Provider at Discharge: Aimee Ruano NP Primary Care Provider: Steve Infante DO Reason for Visit Reason for Visit: HOSPICE CARE ADMIT Discharge Data Vitals Last Vital Signs Temp 0 F L 06/22/25 08:01 Pulse 0 L 06/22/25 08:01 Resp 0 L 06/22/25 08:01 BP 0/0 06/22/25 08:01 Pulse Ox 0 L 06/22/25 08:01 Discharge Plan Discharge Patient Disposition: Condition: Serious Probable Cause of Probable cause of : Cardiac arrest Discharge Attestations Time Spent in Discharge Care*: greater than 30 min Quality Metrics Clinical Quality Measures [ No reported AMI, CVA or VTE this stay] Coding Level of Care Code 13459
== END 2025-06-22 11:37 | disposition expired | DRG 951 ==
PROVIDERS: Admitting Provider Family Medicine; PCP Internal Medicine; Visit Provider Registered Nurse
DX: Z51.5 Encounter for palliative care (principal); J96.91 Respiratory failure, unspecified with hypoxia; E11.9 Type 2 diabetes mellitus without complications; E03.9 Hypothyroidism, unspecified; I11.0 Hypertensive heart disease with heart failure; I50.9 Heart failure, unspecified; R79.89 Other specified abnormal findings of blood chemistry; Z79.899 Other long term (current) drug therapy; Z88.8 Allergy status to other drugs, medicaments and biological substances; Z86.12 Personal history of poliomyelitis; Z87.891 Personal history of nicotine dependence
CPT/HCPCS: J2060; J2270; J9999